=== PATIENT | male | born 1950 | race Two or more races ===

== ENCOUNTER 2022-10-06 19:42 | Inpatient (IN) | payer MEDICARE, OTHER ==
[~2022-10-06] VITALS: Ht 152.4 cm; Wt 82.1 kg
--- NOTE | 2022-10-06 20:09 | NUR ---
KAVITHA PERRY [facility] C/O R SHOULDER SWELLING AND PAIN , MASS NOTED. PT IS ALERT AND ORIENTED. RR EVEN AND NONLABORED. CONNECTED TO MONITOR
--- NOTE | 2022-10-06 20:37 | NUR ---
COVID SWAB COLLECTED
--- NOTE | 2022-10-06 20:38 | NUR ---
ULTRASOUND AT BEDSIDE
--- NOTE | 2022-10-06 20:51 | NUR ---
IV L HAND #22G S/L BLOOD COLLECTED AND SENT TO LAB
[2022-10-06 20:59] LABS: EOSINOPHILS % (AUTO) 0.3 % (0.0-6.0); HEMATOCRIT 29 % (39-51); HEMOGLOBIN 9.1 g/dL (13.5-17.5); LYMPHOCYTES # (AUTO) 0.8 K/uL (0.8-4.8); LYMPHOCYTES % (AUTO) 3.8 % (20.0-44.0); MEAN CORPUSCULAR HGB CONC 32 g/dl (31.0-36.0); MEAN CORPUSCULAR VOLUME 85 fL (80-96); MONOCYTES # (AUTO) 1.2 K/uL (0.1-1.30); NEUTROPHILS # (AUTO) 18.1 K/uL (1.8-8.9); NEUTROPHILS % (AUTO) 89.9 % (43.0-81.0); PLATELET COUNT (AUTO) 375 K/uL (150-450); RED BLOOD CELL COUNT(AUTO) 3.37 MIL/uL (4.5-6.0); WHITE BLOOD COUNT (AUTO) 20.1 K/uL (4.3-11.0)
[2022-10-06 21:17] LABS: CALCIUM, SERUM 7.6 mg/dL (8.5-10.1); CREATININE 0.9 mg/dL (0.6-1.3)
[2022-10-06 21:21] LABS: POTASSIUM 2.7 mmol/L (3.5-5.1)
--- NOTE | 2022-10-06 21:21 | NUR ---
CRITICAL LAB POTASSIUM 2.7
[2022-10-06] MEDS ORDERED: IV NS 0.9% 1,000 ML IV ONE (21:30)
[2022-10-06] MEDS ORDERED: IOHEXOL-350 100 ML VIAL IV ONE (21:43)
[2022-10-06] MEDS ORDERED: IV NS 0.9% 250 ML IV ONE (21:43)
[2022-10-06] MEDS ORDERED: CT SWABBABLE VALVE TRANS SET 1 EA INFUS.SET MC ONE (21:43)
[2022-10-06 21:53] LABS: BAND % (MANUAL) 10 % (0.0-5.0); LYMPHOCYTES % (MANUAL) 5 % (16-48); MONOCYTES % (MANUAL) 3 % (0-11.0); NEUTROPHILS % (MANUAL) 82 (42-76)
[2022-10-06] MEDS: POTASSIUM CL. PREMIX PERIPHER. 50 ML IV SCH (23:30)
[2022-10-06] MEDS ORDERED: MAGNESIUM HYDROXIDE 30 ML UDC PO PRN (23:30)
[2022-10-06] MEDS ORDERED: CEFEPIME 1 GM VIAL ONE (23:30)
[2022-10-06] MEDS ORDERED: CEFEPIME 1 GM in IV D5W 50 ML IV ONE (23:30)
[2022-10-06] MEDS ORDERED: MAG HYDROX/AL HYDROX/SIMETH 30 ML UDC PO PRN (23:30)
[2022-10-06] MEDS ORDERED: VANCOMYCIN 1 GM in IV D5W 250 ML IV ONE (23:30)
[2022-10-06] MEDS ORDERED: ONDANSETRON HCL/PF 4 MG/2 ML VIAL IVP PRN (23:30)
[2022-10-06] MEDS ORDERED: IV NS 0.9% 1,000 ML BAG IV ONE (23:30)
[2022-10-06] MEDS ORDERED: ENOXAPARIN SODIUM 40 MG/0.4 ML DISP.SYRIN SQ SCH (23:30)
[2022-10-06] MEDS ORDERED: VANCOMYCIN 1.5 GM in IV D5W 500ml IV ONE (23:45)
[2022-10-07] VITALS (7 sets, daily range): BP systolic 88–138; BP diastolic 49–86
[2022-10-07] MEDS: POTASSIUM CL. PREMIX PERIPHER. 50 ML IV SCH ×5 (00:30→04:12)
[2022-10-07] MEDS ORDERED: POTASSIUM CL. PREMIX PERIPHER. 200 ML ONE (00:35)
--- NOTE | 2022-10-07 00:53 | NUR ---
PROCAL [id number]
--- NOTE | 2022-10-07 01:20 | NUR ---
REPORT GIVEN TO FRANKO HUTTON FOR HERRERA
--- NOTE | 2022-10-07 02:42 | NUR ---
PT TRANSFERED TO 3W , ACLS PROTOCOLS
[2022-10-07 03:11] LABS: BILIRUBIN,DIRECT 0.1 mg/dL (0.0-0.2); BILIRUBIN,TOTAL 0.4 mg/dL (0.2-1.0)
[2022-10-07] MEDS: ENOXAPARIN SODIUM 40 MG/0.4 ML DISP.SYRIN SQ SCH ×2 (04:17→21:14)
--- NOTE | 2022-10-07 04:28 | NUR ---
ADMINISTRATION ASSISTANT NOTES POTASSIUM 10MEQ/50ML X2 BAGS HELD,HAD ORDER FROM ER 10MEQ/50ML X4 BAGS ON GOING.
--- NOTE | 2022-10-07 04:34 | NUR ---
SHOP WELDER ADMISSION NOTES RECEIVED PATIENT VIA GURNEY, PATIENT IS A/O 3. PATIENT IS BREATHING EVENLY AND UNLABORED ON ROOM AIR. NO SIGNS OF DISTRESS NOTED. VITALS TEMP: 97 HR: 78 RR: 20 SPO2:96 PATIENT DENIES PAIN OR DISCOMFORT AT THIS TIME. SKIN ASSESSMENT PERFORMED, SKIN C/D/I. NOTED RIGHT LEG AMPUTATION, SACRAL AND SCROTUM WOUND NOTED, RIGHT SHOULDER BUMP, EDEMA, BOWEL SOUNDS ACTIVE. PATIENT HAVE IV ACCESS ON LEFT #22G. PATENT AND INTACT. INFORMED ATTENDING PHYSICIAN ABOUT ADMISSION WITH ORDERS MADE AND CARRIED OUT. PATIENT WAS ORIENTED TO ROOM AND HOW TO USE THE CALL LIGHT. BELONGINGS ACCOUNTED FOR. SAFETY MEASURES IN PLACE; BED IN LOW, LOCKED POSITION; SIDE RAILS UP X 2; CALL LIGHT WITHIN REACH. WILL CONTINUE TO MONITOR
--- NOTE | 2022-10-07 04:50 | NUR ---
SIMULATION DEVELOPER NOTES LACTIC ACID WENT UP FROM 2.0 TO 3.4,HOSPITALIST DWAYNE PATEL MADE AWARE,NO NEW ORDERS.
[2022-10-07] MEDS ORDERED: PIPERACILLIN /TAZOBACTAM 3.375 G VIAL IV ONE (05:21)
[2022-10-07] MEDS ORDERED: ZOSYN IVPB 3.375 G in IV D5W 50ml IV SCH ×3 (05:30)
[2022-10-07] MEDS ORDERED: VANCOMYCIN 1 GM VIAL ONE ×2 (05:37→05:39)
[2022-10-07] MEDS ORDERED: VANCOMYCIN 1.5 GM in IV D5W 500ml IV ONE (06:00)
[2022-10-07] MEDS: BLOOD SUGAR DIAGNOSTIC 1 EACH STRIP IN SCH ×4 (06:26→21:33)
[2022-10-07] MEDS ORDERED: DEXTROSE 50%-WATER 50 ML DISP.SYRIN IV PRN (06:30)
--- NOTE | 2022-10-07 06:38 | NUR ---
FACILITY MAINTENANCE MANAGER CLOSING NOTES PATIENT IS IN BED ASLEEP, ON MODERATE HIGH BACK REST POSITION. ATTACHED TO TELE MONITORING DEVICE. HOOKED TO OXYGEN VIA NASAL CANNULA AT 2 LPM TOLERATING WELL, BREATH EVENLY. WITH IV ACCESS AT LEFT HAND #22G WITH NS1L AT 75M/HR INFUSING WELL. NO COMPLAIN OF PAIN AND DISCOMFORT AT THIS TIME.ALL DUE MEDICATIONS GIVEN ALL NEEDS ATTENDED, MORNING CARE RENDERED. KEPT BED ON LOWER LOCKED POSITION, KEPT SIDE RAILS X 2 ALL THE TIME. KEPT CALL LIGHT WITHIN AT REACH. WILL ENDORSED TO AM SHIFT FOR HERRERA.
[2022-10-07 07:20] LABS: EOSINOPHILS % (AUTO) 0.5 % (0.0-6.0); HEMATOCRIT 25 % (39-51); HEMOGLOBIN 7.9 g/dL (13.5-17.5); LYMPHOCYTES # (AUTO) 0.4 K/uL (0.8-4.8); LYMPHOCYTES % (AUTO) 1.7 % (20.0-44.0); MEAN CORPUSCULAR HGB CONC 32 g/dl (31.0-36.0); MEAN CORPUSCULAR VOLUME 84 fL (80-96); MONOCYTES # (AUTO) 0.7 K/uL (0.1-1.30); MONOCYTES % (AUTO) 3.3 % (2.0-12.0); NEUTROPHILS # (AUTO) 21.5 K/uL (1.8-8.9); NEUTROPHILS % (AUTO) 94.5 % (43.0-81.0); PLATELET COUNT (AUTO) 339 K/uL (150-450); RED BLOOD CELL COUNT(AUTO) 2.93 MIL/uL (4.5-6.0); WHITE BLOOD COUNT (AUTO) 22.7 K/uL (4.3-11.0)
--- NOTE | 2022-10-07 07:25 | NUR ---
SENIOR AUDIT MANAGER OPENING NOTE RECEIVED PATIENT IS IN BED ASLEEP BUT EASILY WOKEN UP. PATIENT ON OXYGEN AT 2LPM VIA NASAL CANULA, WITH EQUAL AND UNLABORED BREATHING WITH NO SIGNS OF RESPIRATORY DISTRESS. WITH IV ACCESS ON THE LEFT HAND G 22, WITH ONGOING IVF OF NS RUNNING AT 75ML/HR, INFUSING WELL. NOTED SWOLLEN RIGHT SHOULDER AND MULTIPLE WOUNDS ON THE LEFT LOWER EXTREMITIES, AND GROIN REDNESS/ EXCORIATION. NO COMPLAIN OF PAIN AT THIS TIME. ON NORMAL BODY ALIGNMENT. SAFETY MEASURES ENSURED WITH KEPT BED ON LOWER LOCKED POSITION, KEPT SIDE RAILS X 2 ALL THE TIME. KEPT CALL LIGHT WITHIN AT REACH. WILL CONTINUE WITH PLAN OF CARE.
[2022-10-07 07:35] LABS: CALCIUM, SERUM 7.1 mg/dL (8.5-10.1); CARBON DIOXIDE 24 mmol/L (21-32); CHLORIDE 98 mmol/L (98-107); CREATININE 1.1 mg/dL (0.6-1.3); GLUCOSE 171 mg/dL (74-106); PHOSPHORUS 3.8 mg/dL (2.5-4.9); SODIUM SERUM 131 mmol/L (136-145); UREA NITROGEN, BLOOD 56 mg/dL (7-18)
[2022-10-07 07:41] LABS: HDL CHOLESTEROL 25 mg/dL (40-60); LDL 13 mg/dL (0-99); TRIGLYCERIDES 44 mg/dL (30-150)
--- NOTE | 2022-10-07 07:45 | NUR ---
NEWSPAPER DELIVERY DRIVER NOTE PER OUTGOING NURSE, PATIENT HAD BEEN GIVEN VANCO AND ZOSYN AND A TOTAL OR 4 BAGS OF POTASSIUM ORDERED FOR POTASSIUM COLLECTION.
[2022-10-07 07:50] LABS: CHOLESTEROL 45 mg/dL (<200)
[2022-10-07 07:55] LABS: POTASSIUM 2.8 mmol/L (3.5-5.1)
[2022-10-07 07:56] LABS: MAGNESIUM 0.8 mg/dL (1.8-2.4)
--- NOTE | 2022-10-07 08:25 | NUR ---
SURVEY RESEARCH CENTER DIRECTOR NOTE DR. OLIVAREZ AT BEDSIDE. MD NOTIFIED OF CRITICAL LAB RESULTS, POTASSIUM AND MAGNESIUM. MD WILL PLACE ORDER DIRECTLY IN THE SYSTEM.
--- NOTE | 2022-10-07 09:18 | NUR ---
CYBERATHLETE NOTE SEEN BY DR. WILCOX
--- NOTE | 2022-10-07 09:51 | NUR ---
WOUND CARE CONSULT: PT PRESENTS WITH MULTIPLE SKIN ISSUES AND WOUNDS INCLUDING RAISED AREAS TO FOREHEAD AND RT SHOULDER, WEEPING EDEMA TO RT UPPER EXTREMITY, DISCOLORATION/DRY ABRASION TO RT BELOW KNEE AMPUTATION STUMP, SACRAL DEEP TISSUE INJURY IN EVOLUTION EXTENDING TO BILATERAL BUTTOCKS, SEVERE RASH WITH OPEN SKIN TO PENIS/PERINEUM/SCROTUM AND DRY NECROTIC WOUNDS TO LEFT LOWER LEG, FOOT AND HEEL, ALL PRESENT ON ADMISSION. DR WILCOX EXAMINED PT FOR RT SHOULDER RAISED AREA WITH EDEMA. DR LE CALLED FOR SACRAL/PERINEAL WOUNDS. DR DOWLING CALLED FOR DPM CONSULT. RECOMMENDATION MADE FOR SKIN PROTECTION. DISCUSSED WITH NURSING STAFF. PT IS ON [facility] ISOFLEX LOW AIRLOSS BED. IN AGREEMENT WITH PLAN OF CARE.
[2022-10-07] MEDS ORDERED: AMIODARONE 150 MG in IV D5W 100 ML IV ONE (10:00)
[2022-10-07] MEDS ORDERED: Z GUARD REMEDY 4 OZ OINT TP PRN (10:00)
[2022-10-07] MEDS: ZOSYN IVPB 3.375 G in IV D5W 50ml IV SCH ×3 (11:57→23:33)
[2022-10-07] MEDS: Z GUARD REMEDY 4 OZ OINT TP SCH (11:58)
[2022-10-07 13:00] LABS: BAND % (MANUAL) 12 % (0.0-5.0); LYMPHOCYTES % (MANUAL) 3 % (16-48); MONOCYTES % (MANUAL) 5 % (0-11.0); NEUTROPHILS % (MANUAL) 80 (42-76)
--- NOTE | 2022-10-07 13:45 | NUR ---
PHARMACOMETRICIAN NOTE PATIENT IS ALERT AND ORIENTED X 2-3 COHERENT BUT VERY FORGETFUL AND SOMETIMES NOTED SOME INCONSISTENCIES WITH HISTORY. SPOKE WITH DAUGHTER REGARDING CT WITH CONTRAST AND SECURED CONSENT FOR PROCEDURE. VERBAL CONSENT WITNESSED BY ANOTHER NURSE AND ATTACHED TO CHART. PATIENT ALSO AGREED WITH PROCEDURE.
[2022-10-07] MEDS ORDERED: POTASSIUM CHLORIDE 20 MEQ TAB.PRT.SR PO ONE (14:30)
[2022-10-07] MEDS: Magnesium 1GM/D5W 100ML PREMIX PIGGYBACK IV SCH ×4 (15:37→18:50)
--- NOTE | 2022-10-07 15:45 | NUR ---
FIRST LEVELER NOTE SEEN BY DR. DONALD
[2022-10-07] MEDS ORDERED: IOHEXOL-300 100 ML VIAL IV ONE (16:43)
[2022-10-07] MEDS ORDERED: IV NS 0.9% 250 ML IV ONE (16:44)
[2022-10-07] MEDS ORDERED: CT SWABBABLE VALVE TRANS SET 1 EA INFUS.SET MC ONE (16:44)
[2022-10-07] MEDS ORDERED: AMIN887L PO (17:36)
[2022-10-07] MEDS ORDERED: MELA3TAB70 PO (17:36)
[2022-10-07] MEDS ORDERED: PANT40TA49 PO (17:36)
[2022-10-07] MEDS ORDERED: LISI-768 PO (17:36)
[2022-10-07] MEDS ORDERED: OXYC5CAP18 PO (17:36)
[2022-10-07] MEDS ORDERED: ASCO500C17 PO (17:36)
[2022-10-07] MEDS ORDERED: POLY17PO4 PO (17:36)
[2022-10-07] MEDS ORDERED: MULT-439 PO (17:36)
[2022-10-07] MEDS ORDERED: TAMS-12 PO (17:36)
[2022-10-07] MEDS ORDERED: ZINC220C6 PO (17:36)
[2022-10-07] MEDS ORDERED: ERGO500040 PO (17:36)
[2022-10-07] MEDS ORDERED: METF-440 PO (17:36)
[2022-10-07] MEDS ORDERED: APIX2.5T PO (17:36)
[2022-10-07] MEDS ORDERED: ACET325T53 PO ×2 (17:36)
[2022-10-07] MEDS ORDERED: ATOR80TA PO (17:36)
[2022-10-07] MEDS ORDERED: DONE5TAB34 PO (17:36)
[2022-10-07] MEDS: CLOTRIMAZOLE 1% 15 GM TUBE TP SCH (18:10)
[2022-10-07] MEDS: VANCOMYCIN 1 GM in IV D5W 250 ML IV SCH (18:11)
--- NOTE | 2022-10-07 18:30 | NUR ---
HEALTH EDUCATION TEACHER NOTE SEEN BY DR. SOUTH. DAUGHTER'S INFORMATION GIVEN TO DR. SOUTH. WILL CALL DAUGHTER.
--- NOTE | 2022-10-07 19:00 | NUR ---
FRUIT AND VEGETABLE PARER CLOSING NOTE PATIENT IS IN BED ASLEEP BUT EASILY WOKEN UP. PATIENT ON OXYGEN AT 2LPM VIA NASAL CANULA, WITH EQUAL AND UNLABORED BREATHING WITH NO SIGNS OF RESPIRATORY DISTRESS. WITH IV ACCESS ON THE LEFT HAND G 22, WITH ONGOING IVF OF NS RUNNING AT 75ML/HR, INFUSING WELL. NOTED SWOLLEN RIGHT SHOULDER AND MULTIPLE WOUNDS ON THE LEFT LOWER EXTREMITIES, AND GROIN REDNESS/ EXCORIATION. NO COMPLAIN OF PAIN AT THIS TIME. ON NORMAL BODY ALIGNMENT. SAFETY MEASURES ENSURED WITH KEPT BED ON LOWER LOCKED POSITION, KEPT SIDE RAILS X 2 ALL THE TIME. KEPT CALL LIGHT WITHIN AT REACH. WILL ENDORSE TO NEXT SHIFT FOR CONTINUITY OF CARE.
--- NOTE | 2022-10-07 19:35 | NUR ---
GLASS CLEANING MACHINE TENDER OPENING NOTES; RECEIVED PATIENT IN BED ASLEEP BUT EASY TO AROUSED,ON 2L O2 VIA NC KARLY WELL SATTING 98%,NO SOB/DISTRESS NOTED,NO COMPLAIN OF PAIN/DISCOMFORT AT THIS TIME,WITH IV ACCESS AT LEFT HAND #22G WITH NS 1L AT 75M/HR INFUSING WELL. SAFETY MEASURE IN PLACE, KEPT CALL LIGHT WITHIN AT REACH. WILL CONTINUE TO MONITOR.
[2022-10-07] MEDS: INSULIN REGULAR, HUMAN 100 UNIT/ML 3 ML VIAL SQ PRN (21:21)
[2022-10-07] MEDS: IV NS 0.9% 1,000 ML IV PRN (23:31)
[2022-10-08] VITALS (13 sets, daily range): BP systolic 68–114; BP diastolic 35–57
--- NOTE | 2022-10-08 02:40 | NUR ---
RN OTES; PATIENT BP WAS LOW 68/38,TEXTED CIVIL MANAGER,Doni MUÑOZ,WITH NEW ORDER 1L NS BOLUS ONCE.
[2022-10-08] MEDS: IV NS 0.9% 1,000 ML IV PRN ×2 (03:40→17:26)
[2022-10-08] MEDS ORDERED: IV NS 0.9% 1,000 ML IV ONE ×2 (04:00)
[2022-10-08] MEDS: VANCOMYCIN 1 GM in IV D5W 250 ML IV SCH ×2 (05:06→18:00)
[2022-10-08] MEDS: ZOSYN IVPB 3.375 G in IV D5W 50ml IV SCH ×4 (05:06→23:02)
--- NOTE | 2022-10-08 06:16 | NUR ---
TUGBOAT OPERATOR CLOSING NOTES; PATIENT IN BED ASLEEP BUT EASY TO AROUSED,ON 2L O2 VIA NC KARLY WELL SATTING 97.4%,NO SOB/DISTRESS NOTED,NO COMPLAIN OF PAIN/DISCOMFORT DURING SHIFT,DUE MEDS GIVEN ORDER,ALL NEEDS ATTENDED,WITH IV ACCESS AT LEFT HAND #22G WITH NS 75M/HR INFUSING WELL.REPOSITION Q2HR KARLY,KEPT CLEANED AND DRY AT ALL TIME, SAFETY MEASURE IN PLACE,CALL LIGHT WITHIN REACH. WILL ENDORSED TO NEXT SHIFT.
[2022-10-08] MEDS: BLOOD SUGAR DIAGNOSTIC 1 EACH STRIP IN SCH ×4 (06:35→21:50)
[2022-10-08 06:50] LABS: CALCIUM, SERUM 6.8 mg/dL (8.5-10.1); CREATININE 1.1 mg/dL (0.6-1.3); POTASSIUM 3.1 mmol/L (3.5-5.1)
--- NOTE | 2022-10-08 07:24 | NUR ---
ATM TECHNICIAN OPENING NOTE PATIENT IS IN BED ASLEEP BUT EASILY WOKEN UP. PATIENT IS ALERT AND ORIENTED X 2-3, FORGETFUL AND WITH SOME INCONSISTENCIES WITH HIS STORIES LIKE WHEN HE FELL AND WHAT HAPPENED. PATIENT ON OXYGEN AT 2LPM VIA NASAL CANULA, WITH EQUAL AND UNLABORED BREATHING WITH NO SIGNS OF RESPIRATORY DISTRESS. WITH IV ACCESS ON THE LEFT HAND G 22, WITH ONGOING IVF OF NS RUNNING AT 75ML/HR, INFUSING WELL. NOTED SWOLLEN RIGHT SHOULDER, EDEMATOUS RIGHT ARM, FOREARM, HAND AND MULTIPLE WOUNDS ON THE LEFT LOWER EXTREMITIES, AND GROIN REDNESS/ EXCORIATION. NO COMPLAIN OF PAIN AT THIS TIME. ON NORMAL BODY ALIGNMENT. SAFETY MEASURES ENSURED WITH KEPT BED ON LOWER LOCKED POSITION, KEPT SIDE RAILS X 2 ALL THE TIME. KEPT CALL LIGHT WITHIN AT REACH. WILL CONTINUE WITH PLAN OF CARE.
[2022-10-08] MEDS: CLOTRIMAZOLE 1% 15 GM TUBE TP SCH ×2 (08:22→17:26)
[2022-10-08] MEDS: Z GUARD REMEDY 4 OZ OINT TP SCH (08:22)
[2022-10-08 08:24] LABS: EOSINOPHILS % (AUTO) 0.2 % (0.0-6.0); LYMPHOCYTES # (AUTO) 0.7 K/uL (0.8-4.8); LYMPHOCYTES % (AUTO) 4.2 % (20.0-44.0); MEAN CORPUSCULAR HGB CONC 30 g/dl (31.0-36.0); MEAN CORPUSCULAR VOLUME 87 fL (80-96); MONOCYTES # (AUTO) 1.3 K/uL (0.1-1.30); MONOCYTES % (AUTO) 8.4 % (2.0-12.0); NEUTROPHILS # (AUTO) 13.9 K/uL (1.8-8.9); NEUTROPHILS % (AUTO) 87.2 % (43.0-81.0); PLATELET COUNT (AUTO) 251 K/uL (150-450); RED BLOOD CELL COUNT(AUTO) 2.29 MIL/uL (4.5-6.0)
[2022-10-08 08:32] LABS: HEMATOCRIT 20 % (39-51)
[2022-10-08] MEDS ORDERED: MAGNESIUM OXIDE 400 MG TABLET PO ONE (09:30)
[2022-10-08] MEDS ORDERED: POTASSIUM CHLORIDE 20 MEQ TAB.PRT.SR PO SCH (10:00)
--- NOTE | 2022-10-08 11:19 | NUR ---
MIXING MACHINE TENDER CORK ROD NOTE MIDLINE ORDERED, WITH RIGHT ARM SWOLLEN. MIDLINE REINSERTED ON LEFT ARM, PATENT AND INTACT. PROCEDURE TOLERATED WELL BY PATIENT. IN STABLE CONDITION.
[2022-10-08 12:38] LABS: BAND % (MANUAL) 3 % (0.0-5.0); LYMPHOCYTES % (MANUAL) 2 % (16-48); MONOCYTES % (MANUAL) 6 % (0-11.0); NEUTROPHILS % (MANUAL) 89 (42-76)
--- NOTE | 2022-10-08 19:00 | NUR ---
ACADEMIC SUCCESS COORDINATOR CLOSING NOTE PATIENT IS IN BED ASLEEP BUT EASILY WOKEN UP. PATIENT IS ALERT AND ORIENTED X 2-3, FORGETFUL AND WITH SOME INCONSISTENCIES WITH HIS STORIES LIKE WHEN HE FELL AND WHAT HAPPENED. PATIENT ON OXYGEN AT 2LPM VIA NASAL CANULA, WITH EQUAL AND UNLABORED BREATHING WITH NO SIGNS OF RESPIRATORY DISTRESS. WITH IV ACCESS ON THE LEFT HAND G 22 ON SALINE LOCK, WITH THADDEUS MIDLINE WITH ONGOING IVF OF NS RUNNING AT 75ML/HR, INFUSING WELL. NOTED SWOLLEN RIGHT SHOULDER, EDEMATOUS RIGHT ARM, FOREARM, HAND AND MULTIPLE WOUNDS ON THE LEFT LOWER EXTREMITIES, AND GROIN REDNESS/ EXCORIATION. NO COMPLAIN OF PAIN AT THIS TIME. ON NORMAL BODY ALIGNMENT. SAFETY MEASURES ENSURED WITH KEPT BED ON LOWER LOCKED POSITION, KEPT SIDE RAILS X 2 ALL THE TIME. KEPT CALL LIGHT WITHIN AT REACH. SPOKE WITH DAUGHTER AND SECURED ULTRASOUND GUIDED BIOPSY, ASPIRATION ORDERED BY MD, WITHNESSED BY ANOTHER NURSE. RELAYED REQUEST FOR DR. DIAL TO CALL HER BACK. IN STABLE CONDITION. WILL ENDORSE TO NEXT SHIFT FOR CONTINUITY OF CARE.
--- NOTE | 2022-10-08 19:05 | NUR ---
PROFESSIONAL DEVELOPMENT DIRECTOR OPENING NOTE PATIENT IS LYING IN BED WATCHING TV. HE IS ALERT AND ORIENTED.AO X 2 WITH SOME EPISODES OF CONFUSION. HE IS ON RA, TOLERATED WEILL. NO S/S OF DISTRESS OR SOB. PATIENT HAS TWO IV ACCESS: ONE IS AT HIS L UA, ML, #18G, RUNNING NS @75 ML/HR; ANOTHER ONE IS AT HIS L HAND, #22G, SL. 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 SAFETY MEASURES ARE IN PLACED: BED IN LOWEST AND LOCKED POSITION; SIDE RAILS UP X 3; BED ALARM IS SET; CALL LIGHT AND TABLE ARE WITHIN EASY REACH. WILL CONTINUE MONITORING THE PATIENT AND PROVIDE THE CARE PATIENT NEEDS.
[2022-10-08 22:58] LABS: EOSINOPHILS % (AUTO) 0.4 % (0.0-6.0); HEMATOCRIT 23 % (39-51); HEMOGLOBIN 7.4 g/dL (13.5-17.5); LYMPHOCYTES # (AUTO) 0.8 K/uL (0.8-4.8); LYMPHOCYTES % (AUTO) 5.1 % (20.0-44.0); MEAN CORPUSCULAR HGB CONC 32 g/dl (31.0-36.0); MEAN CORPUSCULAR VOLUME 84 fL (80-96); MONOCYTES # (AUTO) 0.7 K/uL (0.1-1.30); MONOCYTES % (AUTO) 4.9 % (2.0-12.0); NEUTROPHILS # (AUTO) 13.4 K/uL (1.8-8.9); NEUTROPHILS % (AUTO) 89.6 % (43.0-81.0); PLATELET COUNT (AUTO) 237 K/uL (150-450); RED BLOOD CELL COUNT(AUTO) 2.76 MIL/uL (4.5-6.0)
[2022-10-09] VITALS: BP 107/49
[2022-10-09 00:17] LABS: OCCULT BLOOD STOOL NEGATIVE (NEGATIVE)
[2022-10-09 04:00] VITALS: BP 105/54
[2022-10-09] MEDS: ZOSYN IVPB 3.375 G in IV D5W 50ml IV SCH ×3 (05:02→17:20)
[2022-10-09] MEDS: ACETAMINOPHEN 325 MG TABLET PO PRN (05:45)
[2022-10-09 05:59] LABS: CALCIUM, SERUM 7.3 mg/dL (8.5-10.1); CARBON DIOXIDE 23 mmol/L (21-32); CHLORIDE 101 mmol/L (98-107); CREATININE 0.9 mg/dL (0.6-1.3); GLUCOSE 109 mg/dL (74-106); POTASSIUM 3.2 mmol/L (3.5-5.1); SODIUM SERUM 133 mmol/L (136-145); UREA NITROGEN, BLOOD 60 mg/dL (7-18)
[2022-10-09] MEDS: BLOOD SUGAR DIAGNOSTIC 1 EACH STRIP IN SCH ×4 (06:56→21:44)
--- NOTE | 2022-10-09 07:03 | NUR ---
TEXTILES AND CLOTHING TEACHER CLOSING NOTE PATIENT IS SLEEPING IN BED, EASILY BEING AROUSED. HE IS ALERT AND ORIENTED. AO X 2 WITH SOME EPISODES OF CONFUSION. HE IS ON RA, TOLERATED WEILL. NO S/S OF DISTRESS OR SOB. PATIENT HAS TWO IV ACCESS: ONE IS AT HIS L UA, ML, #18G, RUNNING NS @75 ML/HR; ANOTHER ONE IS AT HIS L HAND, #22G, SL. 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 SAFETY MEASURES ARE IN PLACED: BED IN LOWEST AND LOCKED POSITION; SIDE RAILS UP X 3; BED ALARM IS SET; CALL LIGHT AND TABLE ARE WITHIN EASY REACH. WILL ENDORSE NEXT SHIFT NURSE FOR CONTINUING PATIENT CARE.
--- NOTE | 2022-10-09 07:30 | NUR ---
ALARM SIGNALER OPENING NOTES RECEIVED PATIENT ON BED RESTING AND A/O X2-3. ON ROOM AIR TOLERATING WELL. NO SOB NOTED. NOT IN DISTRESS. WITH COMPLAINTS OF PAIN OR DISCOMFORT AT THE SCROTAL AREA AT THE SCALE OF 5/10. COMFORT MEASURES PROVIDED. ON TELE MONITOR CURRENTLY READING A-FIB AT 76BPM. WITH IV ACCESS AT THE LEFT UPPER ARM MIDLINE G18 WITH IVF NS AT 75ML/HR INFUSING WELL. SAFETY MEASURES IN PLACED. CALL LIGHT WITHIN REACH. BED ON LOWEST LOCKED POSITION, SIDE RAILS UP X2. WILL CONTINUE TO MONITOR.
[2022-10-09 08:33] LABS: EOSINOPHILS % (AUTO) 0.5 % (0.0-6.0); HEMATOCRIT 25 % (39-51); HEMOGLOBIN 7.9 g/dL (13.5-17.5); LYMPHOCYTES # (AUTO) 0.8 K/uL (0.8-4.8); LYMPHOCYTES % (AUTO) 4.9 % (20.0-44.0); MEAN CORPUSCULAR HGB CONC 32 g/dl (31.0-36.0); MEAN CORPUSCULAR VOLUME 86 fL (80-96); NEUTROPHILS # (AUTO) 14.7 K/uL (1.8-8.9); NEUTROPHILS % (AUTO) 88.6 % (43.0-81.0); PLATELET COUNT (AUTO) 257 K/uL (150-450); RED BLOOD CELL COUNT(AUTO) 2.89 MIL/uL (4.5-6.0); WHITE BLOOD COUNT (AUTO) 16.6 K/uL (4.3-11.0)
[2022-10-09] MEDS: PANTOPRAZOLE 40 MG TABLET.DR PO SCH (10:02)
[2022-10-09] MEDS: METFORMIN 500 MG TABLET PO SCH ×2 (10:02→16:20)
[2022-10-09] MEDS: DONEPEZIL 5 MG TABLET PO SCH (10:02)
[2022-10-09] MEDS: CLOTRIMAZOLE 1% 15 GM TUBE TP SCH ×2 (10:02→16:09)
[2022-10-09] MEDS: Z GUARD REMEDY 4 OZ OINT TP SCH (10:03)
[2022-10-09] MEDS: INSULIN REGULAR, HUMAN 100 UNIT/ML 3 ML VIAL SQ PRN ×3 (12:14→21:44)
[2022-10-09] MEDS: POTASSIUM CHLORIDE 20 MEQ TAB.PRT.SR PO SCH ×2 (12:15→13:22)
[2022-10-09 12:48] LABS: BAND % (MANUAL) 7 % (0.0-5.0); LYMPHOCYTES % (MANUAL) 8 % (16-48); NEUTROPHILS % (MANUAL) 83 (42-76); REACTIVE LYMPHOCYTES 2 % (0-0)
[2022-10-09] MEDS: IV NS 0.9% 1,000 ML IV PRN (12:55)
[2022-10-09] MEDS: GLUCERNA SHAKE 237 ML CAN PO SCH (16:34)
[2022-10-09] MEDS: VANCOMYCIN 1 GM in IV D5W 250 ML IV SCH (17:58)
--- NOTE | 2022-10-09 18:00 | NUR ---
RN NOTE ATTEMPTED TO INSERT VIRAMONTES CATHETER ON PATIENT TWICE DUE TO PRESENCE OF RESISTANCE. WILL ENDORSE TO NEXT SHIFT.
--- NOTE | 2022-10-09 18:21 | NUR ---
MS RN CLOSING NOTES PATIENT ON BED RESTING AND A/O X2-3. ON ROOM AIR TOLERATING WELL. NO SOB NOTED. NOT IN DISTRESS. WITH COMPLAINTS OF PAIN OR DISCOMFORT AT THE SCROTAL AREA AT THE SCALE OF 5/10. COMFORT MEASURES PROVIDED. WITH IV ACCESS AT THE LEFT UPPER ARM MIDLINE G18 WITH IVF NS AT 75ML/HR INFUSING WELL. DUE MEDS GIVEN. SAFETY MEASURES IN PLACED. CALL LIGHT WITHIN REACH. BED ON LOWEST LOCKED POSITION, SIDE RAILS UP X2. WILL ENDORSE TO NEXT SHIFT FOR HERRERA.
--- NOTE | 2022-10-09 19:15 | NUR ---
noc rn opening received patient in bed, patient is legally blind. noted dinner tray still untouched and asked and encouraged patient to eat and i'll assist him patient said "NO!" "I'm thirsty!" patient assisted with drinks. no s/s of apparent distress on room air. denies pain at this time. needs attended for now. THADDEUS midline running Zosyn @125mls/hr still at this time. call light within reach. safety in place. will continue with patient's plan of care.
[2022-10-09 20:00] VITALS: BP 119/55
--- NOTE | 2022-10-09 21:13 | NUR ---
noc rn note adamantly refused to eat and per patient, to quote "I AM NOT HUNGRY! can't you understand Romansh?" been religiously giving patient fluids and encouraged to say when he is hungry. will continue to monitor.
[2022-10-09] MEDS: TAMSULOSIN 0.4 MG CAP.SR.24H PO SCH (21:38)
[2022-10-10] MEDS: ZOSYN IVPB 3.375 G in IV D5W 50ml IV SCH ×6 (00:26→23:32)
[2022-10-10] MEDS: BLOOD SUGAR DIAGNOSTIC 1 EACH STRIP IN SCH ×4 (06:44→22:13)
[2022-10-10] MEDS: INSULIN REGULAR, HUMAN 100 UNIT/ML 3 ML VIAL SQ PRN ×3 (06:44→22:14)
--- NOTE | 2022-10-10 07:22 | NUR ---
noc rn closing needs attended. no significant change. will endorse to BRENNEN Robles for continuity of patient care.
[2022-10-10 07:23] LABS: CALCIUM, SERUM 7.9 mg/dL (8.5-10.1); CREATININE 0.8 mg/dL (0.6-1.3); POTASSIUM 3.3 mmol/L (3.5-5.1)
--- NOTE | 2022-10-10 07:31 | NUR ---
MS RN OPENING NOTE RECEIVED PATIENT IN BED RESTING AND A/O X2-3. ON ROOM AIR TOLERATING WELL. NO SOB NOTED. NOT IN DISTRESS. WITH COMPLAINTS OF PAIN OR DISCOMFORT AT THE SCROTAL AREA AT THE SCALE OF 5/10. COMFORT MEASURES PROVIDED. IV ACCESS AT THE LEFT UPPER ARM MIDLINE GAUGE #18 WITH IVF NS AT 75ML/HR INFUSING WELL. SAFETY MEASURES IN PLACE. CALL LIGHT WITHIN REACH. BED ON LOWEST LOCKED POSITION, SIDE RAILS UP X2. BED ALARM ON . DRESSING TO LEFT FOOT/LEFT LOWER LEG IS INTACT, CLEAN, AND DRY. WILL CONTINUE TO MONITOR AND CARE FOR PATIENT PER MD PLAN OF CARE.
[2022-10-10 08:04] VITALS: BP 102/68
[2022-10-10] MEDS: GLUCERNA SHAKE 237 ML CAN PO SCH ×2 (08:06→17:05)
[2022-10-10 08:09] LABS: BASOPHILS % (AUTO) 0.1 % (0.0-2.0); EOSINOPHILS % (AUTO) 0.4 % (0.0-6.0); HEMATOCRIT 25 % (39-51); HEMOGLOBIN 8.1 g/dL (13.5-17.5); LYMPHOCYTES # (AUTO) 1.1 K/uL (0.8-4.8); MEAN CORPUSCULAR HGB CONC 33 g/dl (31.0-36.0); MEAN CORPUSCULAR VOLUME 84 fL (80-96); MONOCYTES # (AUTO) 0.8 K/uL (0.1-1.30); MONOCYTES % (AUTO) 7.3 % (2.0-12.0); NEUTROPHILS # (AUTO) 9.1 K/uL (1.8-8.9); NEUTROPHILS % (AUTO) 82.2 % (43.0-81.0); PLATELET COUNT (AUTO) 261 K/uL (150-450); RED BLOOD CELL COUNT(AUTO) 2.95 MIL/uL (4.5-6.0)
[2022-10-10] MEDS ORDERED: ERGOCALCIFEROL (VITAMIN D 2) 50,000 UNIT CAPSULE PO SCH (09:00)
[2022-10-10] MEDS: Z GUARD REMEDY 4 OZ OINT TP SCH (09:15)
[2022-10-10] MEDS: PANTOPRAZOLE 40 MG TABLET.DR PO SCH (09:15)
[2022-10-10] MEDS: METFORMIN 500 MG TABLET PO SCH ×2 (09:15→17:30)
[2022-10-10] MEDS: DONEPEZIL 5 MG TABLET PO SCH (09:15)
[2022-10-10] MEDS: CLOTRIMAZOLE 1% 15 GM TUBE TP SCH ×2 (09:15→17:05)
[2022-10-10] MEDS: IV NS 0.9% 1,000 ML IV PRN (10:34)
[2022-10-10] MEDS: MORPHINE SULFATE INJ 2 MG/ML DISP.SYRIN IV PRN ×3 (10:37→20:51)
[2022-10-10] MEDS ORDERED: POTASSIUM CHLORIDE 20 MEQ TAB.PRT.SR PO SCH (12:00)
[2022-10-10 16:00] VITALS: BP 124/69
[2022-10-10] MEDS: VANCOMYCIN 1 GM in IV D5W 250 ML IV SCH (17:04)
--- NOTE | 2022-10-10 18:52 | NUR ---
MS RN CLOSING NOTE PATIENT IN BED RESTING AND A/O X2-3. ON ROOM AIR TOLERATING WELL. NO SOB NOTED. NOT IN DISTRESS. WITH COMPLAINTS OF PAIN OR DISCOMFORT AT THE SCROTAL AREA AT THE SCALE OF 3/10. COMFORT MEASURES PROVIDED. WITH IV ACCESS AT THE LEFT UPPER ARM MIDLINE G18 WITH IVF NS AT 75ML/HR INFUSING WELL. DUE MEDS GIVEN. SAFETY MEASURES IN PLACE. CALL LIGHT WITHIN REACH. BED ON LOWEST LOCKED POSITION, SIDE RAILS UP X2. WILL ENDORSE TO TRUCK DRIVER BRENNEN GURROLA FOR HERRERA.
--- NOTE | 2022-10-10 19:20 | NUR ---
noc rn opening received patient in bed, patient is legally blind. no s/s of apparent distress on room air. denies pain at this time. THADDEUS midline running IV @75mls/hr at this time. call light within reach. safety in place. will continue with patient's plan of care.
[2022-10-10 20:00] VITALS: BP 105/68
[2022-10-10] MEDS: TAMSULOSIN 0.4 MG CAP.SR.24H PO SCH (22:09)
[2022-10-11] MEDS: MORPHINE SULFATE INJ 2 MG/ML DISP.SYRIN IV PRN ×3 (04:08→18:39)
[2022-10-11] MEDS: BLOOD SUGAR DIAGNOSTIC 1 EACH STRIP IN SCH ×4 (06:34→21:31)
[2022-10-11] MEDS: INSULIN REGULAR, HUMAN 100 UNIT/ML 3 ML VIAL SQ PRN ×3 (06:34→21:31)
[2022-10-11] MEDS: IV NS 0.9% 1,000 ML IV PRN (06:55)
[2022-10-11 07:18] LABS: CREATININE 0.6 mg/dL (0.6-1.3); POTASSIUM 3.3 mmol/L (3.5-5.1)
--- NOTE | 2022-10-11 07:31 | NUR ---
noc rn closing note Endorsed to BRENNEN Robles for continuity of patient care.
--- NOTE | 2022-10-11 07:44 | NUR ---
MS RN OPENING NOTE RECEIVED PATIENT IN BED SLEEPING, EASILY AROUSABLE, AND A/O X 2-3. PT IS ON ROOM AIR TOLERATING WELL. NO SOB NOTED. NOT IN DISTRESS. NO COMPLAINTS OF PAIN NOR SIGNS OF PAIN AT THE MOMENT WHILE ;LYING STILL. IV ACCESS AT THE LEFT UPPER ARM MIDLINE GAUGE #18 WITH IVF NS AT 75ML/HR INFUSING WELL. SAFETY MEASURES IN PLACE. CALL LIGHT WITHIN REACH. BED ON LOWEST LOCKED POSITION, SIDE RAILS UP X 3. BED ALARM ON . DRESSING TO LEFT FOOT/LEFT LOWER LEG IS INTACT, CLEAN, AND DRY. WILL CONTINUE TO MONITOR AND CARE FOR PATIENT PER MD PLAN OF CARE.
[2022-10-11 08:00] VITALS: BP 106/65
[2022-10-11 08:23] LABS: EOSINOPHILS % (AUTO) 0.6 % (0.0-6.0); HEMATOCRIT 24 % (39-51); NEUTROPHILS # (AUTO) 8.4 K/uL (1.8-8.9)
[2022-10-11 08:35] LABS: HEMOGLOBIN 7.7 g/dL (13.5-17.5); LYMPHOCYTES # (AUTO) 0.7 K/uL (0.8-4.8); LYMPHOCYTES % (AUTO) 7.5 % (20.0-44.0); MEAN CORPUSCULAR HGB CONC 32 g/dl (31.0-36.0); MEAN CORPUSCULAR VOLUME 84 fL (80-96); MONOCYTES # (AUTO) 0.7 K/uL (0.1-1.30); MONOCYTES % (AUTO) 7.1 % (2.0-12.0); NEUTROPHILS % (AUTO) 84.8 % (43.0-81.0); PLATELET COUNT (AUTO) 200 K/uL (150-450); RED BLOOD CELL COUNT(AUTO) 2.81 MIL/uL (4.5-6.0); WHITE BLOOD COUNT (AUTO) 9.9 K/uL (4.3-11.0)
[2022-10-11] MEDS: GLUCERNA SHAKE 237 ML CAN PO SCH ×2 (08:38→18:15)
[2022-10-11] MEDS: PANTOPRAZOLE 40 MG TABLET.DR PO SCH (08:56)
[2022-10-11] MEDS: METFORMIN 500 MG TABLET PO SCH ×2 (08:56→18:15)
[2022-10-11] MEDS: DONEPEZIL 5 MG TABLET PO SCH (08:56)
[2022-10-11] MEDS: CLOTRIMAZOLE 1% 15 GM TUBE TP SCH ×2 (08:57→18:15)
[2022-10-11] MEDS: Z GUARD REMEDY 4 OZ OINT TP SCH (08:57)
[2022-10-11] MEDS ORDERED: POTASSIUM CHLORIDE 20 MEQ POWDER PACKET PO ONE (09:00)
[2022-10-11] MEDS: ZOSYN IVPB 3.375 G in IV D5W 50ml IV SCH ×3 (12:17→23:55)
[2022-10-11 16:00] VITALS: BP 157/67
--- NOTE | 2022-10-11 18:55 | NUR ---
MS RN CLOSING NOTE PATIENT IN BED SLEEPING, EASILY AROUSED, AND A/O X 2-3. ON ROOM AIR TOLERATING WELL. NO SOB NOTED. NOT IN DISTRESS. NO COMPLAINTS OF PAIN OR DISCOMFORT AT THE SCROTAL AREA AT THE SCALE OF 3/10. COMFORT MEASURES PROVIDED. WITH IV ACCESS AT THE LEFT UPPER ARM MIDLINE G18 WITH IVF NS AT 75ML/HR INFUSING WELL. DUE MEDS GIVEN AND ALL WOUND CARE /SKIN CARE DONE. tURNED EVERY 2 HOURS TO PREVENT FURTHER SKIN BREAKDOWN. SAFETY MEASURES IN PLACE. CALL LIGHT WITHIN REACH. BED ON LOWEST LOCKED POSITION, SIDE RAILS UP X2. WILL ENDORSE TO SQL SSIS DEVELOPER RNSWATI, FOR HERRERA.
[2022-10-11] MEDS: VANCOMYCIN 1 GM in IV D5W 250 ML IV SCH (19:07)
--- NOTE | 2022-10-11 19:57 | NUR ---
RN OPENING NOTE PATIENT ASLEEP IN BED. A/OX4. NO S/S OF DISTRESS, BREATHING WITHOUT DIFFICULTY ON ROOM AIR. THADDEUS MIDLINE #18 INTACT AND PATENT W/ NS 75ML/HR. SAFETY MEASURES IN PLACE: BED LOCKED AND IN LOWEST POSITION, SEMI-COY'S, RAILS UP X2, CALL FORD WITHIN REACH. WILL CONTINUE TO MONITOR PATIENT.
[2022-10-11 20:00] VITALS: BP 137/81
[2022-10-11] MEDS: TAMSULOSIN 0.4 MG CAP.SR.24H PO SCH (21:30)
[2022-10-12] MEDS: IV NS 0.9% 1,000 ML IV PRN (01:40)
[2022-10-12] MEDS: ACETAMINOPHEN 325 MG TABLET PO PRN (05:31)
[2022-10-12] MEDS: ZOSYN IVPB 3.375 G in IV D5W 50ml IV SCH ×2 (05:31→12:03)
[2022-10-12 06:22] LABS: CREATININE 0.6 mg/dL (0.6-1.3); POTASSIUM 3.2 mmol/L (3.5-5.1)
[2022-10-12] MEDS: INSULIN REGULAR, HUMAN 100 UNIT/ML 3 ML VIAL SQ PRN ×2 (06:33→13:27)
[2022-10-12] MEDS: BLOOD SUGAR DIAGNOSTIC 1 EACH STRIP IN SCH ×2 (06:33→11:47)
--- NOTE | 2022-10-12 07:03 | NUR ---
RN CLOSING NOTE PATIENT ASLEEP IN BED. A/OX3. NO S/S OF DISTRESS, BREATHING WITHOUT DIFFICULTY ON ROOM AIR. THADDEUS MIDLINE #18 INTACT AND PATENT W/ NS 75ML/HR. SAFETY MEASURES IN PLACE: BED LOCKED AND AT LOWEST POSITION, LOW-FOWLERS, RAILS UP X2, CALL FORD WITHIN REACH. WILL ENDORSE TO NEXT SHIFT FOR HERRERA.
--- NOTE | 2022-10-12 07:30 | NUR ---
RN OPENING NOTE RECEIVED PATIENT IN BED AWAKE . A/OX4. NO S/S OF DISTRESS, NO C/O OF PAIN AND DISCOMFORT , BREATHING WITHOUT DIFFICULTY ON ROOM AIR. THADDEUS MIDLINE #18 INTACT AND PATENT W/ NS 75ML/HR. SAFETY MEASURES IN PLACE: BED LOCKED AND IN LOWEST POSITION, SEMI-COY'S, RAILS UP X2, CALL FORD WITHIN REACH. WILL CONTINUE TO MONITOR PATIENT.
[2022-10-12 08:00] VITALS: BP 111/57
[2022-10-12] MEDS: GLUCERNA SHAKE 237 ML CAN PO SCH (08:30)
[2022-10-12] MEDS: PANTOPRAZOLE 40 MG TABLET.DR PO SCH (09:43)
[2022-10-12] MEDS: DONEPEZIL 5 MG TABLET PO SCH (09:43)
[2022-10-12] MEDS: METFORMIN 500 MG TABLET PO SCH (09:44)
[2022-10-12] MEDS: Z GUARD REMEDY 4 OZ OINT TP SCH (09:55)
[2022-10-12] MEDS: CLOTRIMAZOLE 1% 15 GM TUBE TP SCH (09:55)
[2022-10-12] MEDS: POTASSIUM CHLORIDE 20 MEQ TAB.PRT.SR PO SCH ×2 (11:12→12:03)
--- NOTE | 2022-10-12 17:00 | NUR ---
COLD MILL SUPERVISOR NOTES PATIENT IS WITH ORDER FOR DISCHARGE TO ANOTHER ACUTE HOSPITAL FOR HIGHER LEVEL OF CARE , DISCHARGE PAPERS PREPARED AND TRANSFER CONSENT WAS ACQUIRED FROM DAUGHTER PAUL AND SHE AGREED REGARDING THE TRANSFER , REPORT WAS GIVEN TO MAXIM HUTTON TO [facility] PHONE [phone] AND ROOM WILL BE IN 5150, ADMINISTRATIVE RECEPTIONIST ROUND 1630 AND LEFT LIKE AROUND 1700 , PATIENT IN A STABLE CONDITION WITH , RIGHT SHOULDER DRAINAGE BAG DUE TO S/P CT PERC DRN ABSCESS WITH CATH , INTACT DRESSING ON THE RIGHT SHOULDER , IV ACCESS ON THE THADDEUS ML #18 G AND LEFT HAND # 20 G SL PATIENT LEFT ON ROOM AIR WITH NO SOB OR DISTRESS NOTED , NO C/O OF PAIN AND DISCOMFORT AND LEFT IN A STABLE CONDITION , REPORT GIVEN ALSO TO AMBULANCE CREW .
--- NOTE | 2022-10-12 17:30 | NUR ---
RN NOTES PATIENT IS S/P CT DRAINAGE ON THE RIGHT SHOULDER MASS ABSCESS AND WITH SYNOVIAL FLUID COLLECTED , WITH ORDER TO SEND TO THE LAB AND ORDER NOTED AND CARRIED OUT
== END 2022-10-12 17:00 | disposition short-term general hospital (02) | DRG 871 ==
LOC: ER 19:44 → MED 23:48 → TELE 10-07 02:40 → MED 10-09 12:07
PROVIDERS: ADMIT Nurse Practitioner Acute Care; ATTEND Internal Medicine
PROC: 30233N1 Transfusion of Nonautologous Red Blood Cells into Peripheral Vein, Percutaneous Approach (ICD-10-PCS; 2022-10-08)
PROC: 05HC33Z Insertion of Infusion Device into Left Basilic Vein, Percutaneous Approach (ICD-10-PCS; 2022-10-08)
PROC: 0X9 Anatomical Regions, Upper Extremities, Drainage (ICD-10-PCS; principal; 2022-10-12)
DX: A41.51 Sepsis due to Escherichia coli [E. coli] (principal); G93.41 Metabolic encephalopathy; R53.2 Functional quadriplegia; D68.59 Other primary thrombophilia; E11.52 Type 2 diabetes mellitus with diabetic peripheral angiopathy with gangrene; E87.1 Hypo-osmolality and hyponatremia; M00.9 Pyogenic arthritis, unspecified; L02.413 Cutaneous abscess of right upper limb; Z20.822 Contact with and (suspected) exposure to COVID-19; I10 Essential (primary) hypertension; E78.5 Hyperlipidemia, unspecified; K21.9 Gastro-esophageal reflux disease without esophagitis; Z89.511 Acquired absence of right leg below knee; F03.90 Unspecified dementia, unspecified severity, without behavioral disturbance, psychotic disturbance, mood disturbance, and anxiety; R26.9 Unspecified abnormalities of gait and mobility; E87.6 Hypokalemia; E88.09 Other disorders of plasma-protein metabolism, not elsewhere classified; Z89.612 Acquired absence of left leg above knee; Z74.01 Bed confinement status; L89.156 Pressure-induced deep tissue damage of sacral region; L89.326 Pressure-induced deep tissue damage of left buttock; L89.316 Pressure-induced deep tissue damage of right buttock; S31.30XA Unspecified open wound of scrotum and testes, initial encounter; X58.XXXA Exposure to other specified factors, initial encounter; Y92.9 Unspecified place or not applicable; D64.9 Anemia, unspecified
CPT/HCPCS: 36415; 71260-TC; 73201-TC; 75989-TC; 80048-TC; 80061-TC; 80202-TC; 82247-TC; 82248-TC; 82272-TC; 82962-TC; 83605-TC; 83735-TC; 84100-TC; 85025-TC; 85610-TC; 86850-TC; 87040-TC; 87081-TC; 89051-TC; 93971-TC; A4223; A6253; A6403; C9803; G0378; J0692; J1650; J1815; J2270; J2543; J3370; J3475; J3480; J7030; J7040; J7050; J7060; P9016; Q9967

== ENCOUNTER 2022-11-14 10:47 | Inpatient (IN) | payer MEDICARE, OTHER ==
[~2022-11-14] VITALS: Ht 170.2 cm; Wt 104.3 kg
[~2022-11-14 10:47] MED LIST: ACET325T53 PO; AMIN887L PO; APIX2.5T PO; ASCO500C17 PO; ATOR80TA PO; DONE5TAB34 PO; ERGO500040 PO; LISI-768 PO; MELA3TAB70 PO; METF-440 PO; MULT-439 PO; OXYC5CAP18 PO; PANT40TA49 PO; POLY17PO4 PO; TAMS-12 PO; ZINC220C6 PO
--- NOTE | 2022-11-14 11:05 | NUR ---
PATIENT CAME IN VIA AMBULANCE FROM A SNF FOR C/O HYPOTENSION AND POOR APPETITE , UPON NURSING ASSESSMENT THE PATIENT IS REPONSIVE TO VERBAL STIMULI , ON 4L/MIN OXYGEN AT 97% . MD AT BEDSIDE FOR EVALUATION. PATIENT IS STABLE. AWAITING FOR ORDERS.
[2022-11-14] MEDS: IV NS 0.9% 1,000 ML BAG IV ONE ×2 (11:15→11:30)
--- NOTE | 2022-11-14 11:20 | NUR ---
MOVE SHEET SUBMITTED.
--- NOTE | 2022-11-14 11:22 | NUR ---
COVID SWAB COLLECTED AND SENT TO LAB
[2022-11-14] MEDS ORDERED: SENN-18 PO (11:34)
[2022-11-14] MEDS ORDERED: ACET-868 PO (11:34)
[2022-11-14] MEDS ORDERED: ASCO500T10 PO (11:34)
[2022-11-14] MEDS ORDERED: CEFT2VIA64 IV (11:34)
--- NOTE | 2022-11-14 13:28 | NUR ---
MIDLINE INSERTED 20G AT LEFT UPPER ARM.
--- NOTE | 2022-11-14 13:28 | NUR ---
BLOOD SAMPLE OBTAINED SENT TO LAB
[2022-11-14 14:12] LABS: BASOPHILS % (AUTO) 0.2 % (0.0-2.0); EOSINOPHILS % (AUTO) 0.5 % (0.0-6.0); HEMATOCRIT 27 % (39-51); HEMOGLOBIN 8.7 g/dL (13.5-17.5); LYMPHOCYTES # (AUTO) 0.9 K/uL (0.8-4.8); LYMPHOCYTES % (AUTO) 8.6 % (20.0-44.0); MEAN CORPUSCULAR HGB CONC 32 g/dl (31.0-36.0); MEAN CORPUSCULAR VOLUME 85 fL (80-96); MONOCYTES # (AUTO) 0.5 K/uL (0.1-1.30); MONOCYTES % (AUTO) 4.7 % (2.0-12.0); NEUTROPHILS # (AUTO) 8.5 K/uL (1.8-8.9); PLATELET COUNT (AUTO) 211 K/uL (150-450); RED BLOOD CELL COUNT(AUTO) 3.19 MIL/uL (4.5-6.0); WHITE BLOOD COUNT (AUTO) 9.9 K/uL (4.3-11.0)
[2022-11-14 14:43] LABS: CHLORIDE 106 mmol/L (98-107); GLUCOSE 73 mg/dL (74-106); UREA NITROGEN, BLOOD 23 mg/dL (7-18)
[2022-11-14 14:51] LABS: ALANINE AMINOTRANSFERASE 13 U/L (12-78); ALKALINE PHOSPHATASE 160 U/L (46-116); ASPARTATE AMINOTRANSFERASE 23 U/L (15-37); BILIRUBIN,DIRECT 0.1 mg/dL (0.0-0.2); BILIRUBIN,TOTAL 0.2 mg/dL (0.2-1.0); TOTAL PROTEIN, SERUM 4.8 g/dL (6.4-8.2)
[2022-11-14] MEDS ORDERED: POTASSIUM CL. PREMIX PERIPHER. 50 ML ONE ×3 (14:53→16:54)
[2022-11-14] MEDS: POTASSIUM CL. PREMIX PERIPHER. 50 ML IV SCH ×8 (15:00→23:42)
[2022-11-14 15:05] LABS: ALBUMIN 0.8 g/dL (3.4-5.0)
[2022-11-14 15:07] LABS: SODIUM SERUM 142 mmol/L (136-145)
[2022-11-14 15:08] LABS: CARBON DIOXIDE 31 mmol/L (21-32); CREATININE 0.5 mg/dL (0.6-1.3); POTASSIUM 1.9 mmol/L (3.5-5.1)
[2022-11-14 15:37] LABS: PHOSPHORUS 1.6 mg/dL (2.5-4.9)
[2022-11-14] MEDS ORDERED: Magnesium 1 GM/2 ML VIAL IV ONE (16:00)
[2022-11-14] MEDS ORDERED: Thiamine 100 MG in IV D5W 50 ML IV SCH (16:00)
[2022-11-14] MEDS ORDERED: DEXTROSE 50%-WATER 50 ML DISP.SYRIN IVP ONE (16:00)
[2022-11-14] MEDS: Magnesium 1GM/D5W 100ML PREMIX 100 ML IV SCH ×2 (16:15→18:51)
[2022-11-14] MEDS ORDERED: ONDANSETRON HCL/PF 4 MG/2 ML VIAL IVP PRN (16:30)
[2022-11-14] MEDS ORDERED: MAG HYDROX/AL HYDROX/SIMETH 30 ML UDC PO PRN (16:30)
[2022-11-14] MEDS ORDERED: MORPHINE SULFATE INJ 2 MG/ML DISP.SYRIN IV PRN (16:30)
[2022-11-14] MEDS ORDERED: Z GUARD REMEDY 4 OZ OINT TP PRN (16:30)
[2022-11-14] MEDS ORDERED: HYDROCODONE/APAP 5/325MG TABLET PO PRN (16:30)
[2022-11-14] MEDS ORDERED: MAGNESIUM HYDROXIDE 30 ML UDC PO PRN (16:30)
[2022-11-14] MEDS ORDERED: NEUTRA PHOS 1 POWD.PACKET PO ONE (17:00)
--- NOTE | 2022-11-14 17:36 | NUR ---
TRANSFER REPORT GIVEN TO ALBA FLOOR NURSE.
[2022-11-14 18:00] VITALS: BP 102/60
--- NOTE | 2022-11-14 18:08 | NUR ---
3RD BAG OF POTASSIUM ABOUT 20ML AND MAGNESIUM 1G ON 100ML ABOUT 20ML LEFT ENDORSED TO PAUL HUTTON FOR CONTINUES INFUSION . BOTH IVPB ON SEPERATE IV PUMP REGULATED PROPERLY ORDERED.
--- NOTE | 2022-11-14 18:08 | NUR ---
RN NOTES: RECEIVED PT FROM ER POTASSIUM IV RUNNING VIA LEFT ARM MIDLINE, ENDORSED TO GIVE IV POTASSIUM, MAGNESIUM, DEXTROSE 50 % AND IV THIAMINE, PT ASLEEP BUT ANSWER SIMPLE QUESTION, NOTED RIGHT LEG BKA AND LEFT FOOT GANGRENE.NOTED PT WITH VIRAMONTES CATHETER,NO URINE OUTPUT NOTED, ALSO NOTED WITH 2 DRAINS AT RIGHT SHOULDER, VITAL SIGNS TAKEN 102/60 TEMP98.6, PULSE89 RESP 18 O2 SAT 100 PT ON 2 LITER OXYGEN VIA NASAL CANNULA, 2 NEONATAL INTENSIVE CARE NURSE CLEANED PATIENT ,WILL MONITOR
--- NOTE | 2022-11-14 18:44 | NUR ---
RN NOTES:BLOOD SUGAR 65 CALLED AND SPOKE TO DEION MONTILLA NP PT DID NOT RECEIVE IV DEXTROSE 50% IN THE ER THERE WAS NO IV LINE AND PT WAS RECEIVING IV POTASSIUM WITH ORDER TO GIVE D50% NOW, DEXTROSE GIVEN
[2022-11-14] MEDS: BLOOD SUGAR DIAGNOSTIC 1 EACH STRIP IN SCH ×2 (18:45→22:42)
--- NOTE | 2022-11-14 19:15 | NUR ---
RN NOTES: ENDORSED TO NIGHT BRENNEN GONZALEZ FOR ADMISSION AND HERRERA
--- NOTE | 2022-11-14 19:40 | NUR ---
CONTRACT DRIVER NOTE RECEIVED REPORT FROM BRENNEN MILLER. PT CAME IN FROM ER @ 1808, BROUGHT TO [facility] VIA ACLS PROTOCOL. DX IS FTT. PT IN BED, A/O X 0-1. RESPONDS TO QUESTIONS MINIMALLY. ON NC @ 2LPM, TOLERATING WELL WITH O2 SAT @ 98%. [employer] READS SR. NO S/SX OF ACUTE RESPI DISTRESS NOTED AT THIS TIME. NO SOB, BREATHING IS EVEN AND UNLABORED. IV ACCESS IN THADDEUS ML, RUNNING KCL 10 MEQ, AND NS TKO. PATENT, INTACT AND FLUSHING WELL. 2 RIGHT SHOULDER DRAINS NOTED WITH MINIMAL OUTPUT. SWELLING ON CHANDU NOTED. VIRAMONTES CATH IN PLACE, DRAINING MINIMAL URINE AT THIS TIME. PT NOTED TO HAVE WOUNDS ON THE FOLLOWING: SACRUM, SCROTUM AND GROIN AREAS. GANGRENE ON LEFT LOWER LEG AND LEFT TOES, LOOSELY WRAPPED WITH KERLIX FOR NOW. REDNESS ON THE NECK AND RASHES ON R UNDERARM. PT ALSO HAVE A MODERATE SIZE OF BUMP ON THE FOREHEAD. ALL PHOTOS TAKEN AND PLACED IN CHART. WOUND CONSULT PLACED. ALL SAFETY MEASURES IN PLACE: BED LOCKED IN LOW POSITION, BED ALARM ON, HOB ELEVATED. SR UP X 2, CALL LIGHT WITHIN REACH. WILL CONTINUE TO MONITOR PT.
[2022-11-14 20:00] VITALS: BP 107/81
[2022-11-14] MEDS: CEFEPIME 2 GM in IV D5W 100 ML IV SCH (20:08)
[2022-11-14 20:42] LABS: CREATININE 0.6 mg/dL (0.6-1.3)
[2022-11-14 20:46] LABS: POTASSIUM 2.1 mmol/L (3.5-5.1)
--- NOTE | 2022-11-14 20:49 | NUR ---
RN NOTE RECEIVED CRITICAL LAB FOR POTASSIUM- 2.1 PT STILL ON 5TH BAG OF KCL, 3 MORE BAGS TO GO. WILL UPDATE ONCE DONE WITH ALL THE BAGS.
[2022-11-14] MEDS ORDERED: CEFEPIME 1 GM in IV D5W 50 ML IV SCH (21:00)
[2022-11-14] MEDS: IV D5/ 0.9% NACL 1,000 ML IV PRN (21:49)
[2022-11-14] MEDS: INSULIN REGULAR, HUMAN 100 UNIT/ML 3 ML VIAL SQ PRN (22:43)
[2022-11-15] VITALS: BP 129/66
--- NOTE | 2022-11-15 03:15 | NUR ---
RN NOTE PM CARE AND WOUND CARE DONE. TURNED AND REPOSITIONED.
[2022-11-15 04:00] VITALS: BP 119/69
[2022-11-15] MEDS: CEFEPIME 2 GM in IV D5W 100 ML IV SCH ×3 (04:29→21:41)
--- NOTE | 2022-11-15 06:34 | NUR ---
RN CLOSING NOTE NO SIGNIFICANT CHANGE T/O THE NIGHT. PT REMAINED STABLE. DUE MEDS GIVEN. ALL NEEDS MET. WILL ENDORSE TO AM SHIFT NURSE FOR HERRERA.
[2022-11-15 07:25] LABS: CALCIUM, SERUM 6.9 mg/dL (8.5-10.1); CARBON DIOXIDE 32 mmol/L (21-32); CHLORIDE 107 mmol/L (98-107); CREATININE 0.5 mg/dL (0.6-1.3); GLUCOSE 94 mg/dL (74-106); MAGNESIUM 1.4 mg/dL (1.8-2.4); SODIUM SERUM 142 mmol/L (136-145); UREA NITROGEN, BLOOD 22 mg/dL (7-18)
[2022-11-15] MEDS: BLOOD SUGAR DIAGNOSTIC 1 EACH STRIP IN SCH ×4 (07:52→21:42)
[2022-11-15 08:00] VITALS: BP 134/76
[2022-11-15 08:01] LABS: POTASSIUM 2.4 mmol/L (3.5-5.1)
--- NOTE | 2022-11-15 09:04 | NUR ---
WOUND CARE CONSULT: PT PRESENTS WITH MULTIPLE WOUNDS AND SKIN ISSUES INCLUDING RT SHOULDER SURGICAL SITE WITH GAIL AND 2 WARNER DRAINS, SACRAL DEEP TISSUE INJURY WHICH EXTENDS TO BILATERAL BUTTOCKS AND OPENSKIN TO SCROTUM AND RT INNER THIGH, LEFT LOWER LEG AND FOOT WITH DRY BLACK NECROTIC TISSUE, RT ABOVE KNEE AMPUTATION STUMP NOTED, ALL PRESENT ON ADMISSION. DR LE AND DR DOWLING CALLED FOR SURGICAL AND DPM CONSULTS. DISCUSSED SKIN PROTECTION WI5TH NURSING STAFF. FIRST STEP LOW AIRLOSS MATTRESS ORDERED. IN AGREEMENT WITH PLAN OF CARE.
[2022-11-15] MEDS ORDERED: MAGNESIUM OXIDE 400 MG TABLET PO ONE (09:30)
[2022-11-15] MEDS: THIAMINE HCL 100 MG TABLET PO SCH (10:01)
[2022-11-15] MEDS: PANTOPRAZOLE 40 MG VIAL IV SCH (10:02)
[2022-11-15] MEDS: IV D5/ 0.9% NACL 1,000 ML IV PRN ×2 (10:11→23:58)
[2022-11-15] MEDS: POTASSIUM CL. PREMIX PERIPHER. 50 ML IV SCH ×5 (10:53→15:15)
[2022-11-15 12:00] VITALS: BP 94/51
[2022-11-15] MEDS ORDERED: K PHOS NEUTRAL 250 MG TABLET PO ONE (15:30)
[2022-11-15 16:34] VITALS: BP 120/70
[2022-11-15] MEDS: GLUCERNA SHAKE 237 ML CAN PO SCH (17:27)
[2022-11-15 17:41] LABS: BASOPHILS % (AUTO) 0.1 % (0.0-2.0); EOSINOPHILS % (AUTO) 0.5 % (0.0-6.0); HEMATOCRIT 24 % (39-51); HEMOGLOBIN 7.8 g/dL (13.5-17.5); LYMPHOCYTES # (AUTO) 1.2 K/uL (0.8-4.8); MEAN CORPUSCULAR HGB CONC 33 g/dl (31.0-36.0); MEAN CORPUSCULAR VOLUME 84 fL (80-96); MONOCYTES # (AUTO) 0.5 K/uL (0.1-1.30); MONOCYTES % (AUTO) 6.2 % (2.0-12.0); NEUTROPHILS # (AUTO) 7.1 K/uL (1.8-8.9); NEUTROPHILS % (AUTO) 80.2 % (43.0-81.0); PLATELET COUNT (AUTO) 197 K/uL (150-450); RED BLOOD CELL COUNT(AUTO) 2.86 MIL/uL (4.5-6.0); WHITE BLOOD COUNT (AUTO) 8.9 K/uL (4.3-11.0)
[2022-11-15 18:21] LABS: MAGNESIUM 1.3 mg/dL (1.8-2.4); POTASSIUM 3.1 mmol/L (3.5-5.1)
[2022-11-15 18:44] LABS: BAND % (MANUAL) 1 % (0.0-5.0); LYMPHOCYTES % (MANUAL) 8 % (16-48); MONOCYTES % (MANUAL) 4 % (0-11.0); NEUTROPHILS % (MANUAL) 87 (42-76)
--- NOTE | 2022-11-15 19:20 | NUR ---
rn closing note PATIENT IS IN BED , ALERT , ORIENTED TIMES 1 ON NC @ 2LPM, TOLERATING WELL WITH O2 SAT @ 98%. ADULT EDUCATOR READS SR. NO S/SX OF ACUTE RESPI DISTRESS NOTED AT THIS TIME. NO SOB, BREATHING IS EVEN AND UNLABORED. IV ACCESS IN THADDEUS ML, INTACT AND FLUSHING WELL. 2 RIGHT SHOULDER DRAINS NOTED WITH MINIMAL OUTPUT. SWELLING ON CHANDU NOTED. VIRAMONTES CATH IN PLACE, DRAINING MINIMAL ALL MEDICATIONS WERE ADMINISTRED , ALL NEEDS WERE MET .WILL ENDORSE DRUM SPRAYER NURSE TO FALLOW POC
--- NOTE | 2022-11-15 19:30 | NUR ---
PATIENT IS IN BED ASLEEP, AROUSABLE/RESPONSIVE. AOX1. CLOSING MACHINE OPERATOR READS SR. ON NC @ 3LPM, TOLERATING WELL WITH O2 SAT @ 98%. NO S/SX OF ACUTE RESPI DISTRESS NOTED AT THIS TIME. IV ACCESS IN THADDEUS PICC LINE, INFUSING D5NS @ 75 ML/HR. 2 RIGHT SHOULDER DRAINS NOTED WITH MINIMAL OUTPUT. SWELLING ON CHANDU NOTED. VIRAMONTES CATH IN PLACE, DRAINING MINIMAL. SAFETY MEASURES IN PLACE. HEAD OF BED ELEVATED, BED LOCKED AND IN LOWEST POSITION, SIDE RAILS UP X3. CALL LIGHT WITHIN REACH. WILL CONTINUE PLAN OF CARE.
[2022-11-15 20:00] VITALS: BP 135/57
[2022-11-15] MEDS ORDERED: VANCOMYCIN 1.25 GM in IV D5W 250 ML IV ONE (21:00)
[2022-11-15] MEDS: INSULIN REGULAR, HUMAN 100 UNIT/ML 3 ML VIAL SQ PRN (21:59)
[2022-11-16] VITALS: BP 128/60
--- NOTE | 2022-11-16 03:15 | NUR ---
Removed old FC, not draining. Inserted new FC, pt tolerated procedure well. Urine sample collected and sent to lab.
[2022-11-16 04:00] VITALS: BP 136/72
[2022-11-16] MEDS: CEFEPIME 2 GM in IV D5W 100 ML IV SCH ×3 (05:21→20:59)
--- NOTE | 2022-11-16 05:56 | NUR ---
Blood culture result gram positive cocci. MD informed.
[2022-11-16 06:02] LABS: BASOPHILS % (AUTO) 0.1 % (0.0-2.0); EOSINOPHILS % (AUTO) 0.5 % (0.0-6.0); HEMATOCRIT 23 % (39-51); HEMOGLOBIN 7.5 g/dL (13.5-17.5); LYMPHOCYTES # (AUTO) 1.3 K/uL (0.8-4.8); LYMPHOCYTES % (AUTO) 16.6 % (20.0-44.0); MEAN CORPUSCULAR HGB CONC 33 g/dl (31.0-36.0); MEAN CORPUSCULAR VOLUME 84 fL (80-96); MONOCYTES # (AUTO) 0.6 K/uL (0.1-1.30); MONOCYTES % (AUTO) 8.1 % (2.0-12.0); NEUTROPHILS # (AUTO) 5.8 K/uL (1.8-8.9); NEUTROPHILS % (AUTO) 74.7 % (43.0-81.0); PLATELET COUNT (AUTO) 156 K/uL (150-450); RED BLOOD CELL COUNT(AUTO) 2.75 MIL/uL (4.5-6.0); WHITE BLOOD COUNT (AUTO) 7.7 K/uL (4.3-11.0)
[2022-11-16 06:09] LABS: CALCIUM, SERUM 6.9 mg/dL (8.5-10.1); CARBON DIOXIDE 32 mmol/L (21-32); CHLORIDE 108 mmol/L (98-107); CREATININE 0.4 mg/dL (0.6-1.3); GLUCOSE 89 mg/dL (74-106); MAGNESIUM 1.3 mg/dL (1.8-2.4); PHOSPHORUS 2.3 mg/dL (2.5-4.9); SODIUM SERUM 143 mmol/L (136-145); UREA NITROGEN, BLOOD 18 mg/dL (7-18)
[2022-11-16 06:30] LABS: POTASSIUM 2.8 mmol/L (3.5-5.1)
--- NOTE | 2022-11-16 06:33 | NUR ---
Potassium 2.8 today from 2.4 yesterday. informed.
[2022-11-16 08:00] VITALS: BP 114/65
[2022-11-16] MEDS: GLUCERNA SHAKE 237 ML CAN PO SCH ×2 (08:00→16:07)
--- NOTE | 2022-11-16 08:01 | NUR ---
PT IS IN BED ASLEEP, AROUSABLE/RESPONSIVE. AOX1. INSURANCE VERIFICATION CLERK READS SR, HR 87. ON NC @ 3LPM, TOLERATING WELL WITH O2 SAT @ 100%. NO S/SX OF ACUTE RESPI DISTRESS AT THIS TIME. IV ACCESS IN THADDEUS PICC LINE, INFUSING D5NS @ 75 ML/HR. 2 RIGHT SHOULDER DRAINS NOTED WITH MINIMAL OUTPUT. SWELLING ON CHANDU NOTED. VIRAMONTES CATH IN PLACE, DRAINING MINIMAL. SAFETY MEASURES MAINTAINED. HEAD OF BED ELEVATED, BED LOCKED AND IN LOWEST POSITION, SIDE RAILS UP X3. CALL LIGHT WITHIN REACH. WILL ENDORSE TO NEXT NURSE ON DUTY FOR CONTINUITY OF CARE.
[2022-11-16] MEDS: BLOOD SUGAR DIAGNOSTIC 1 EACH STRIP IN SCH ×4 (08:02→22:47)
[2022-11-16] MEDS: THIAMINE HCL 100 MG TABLET PO SCH (08:08)
[2022-11-16] MEDS: PANTOPRAZOLE 40 MG VIAL IV SCH (08:08)
[2022-11-16] MEDS: POTASSIUM CHLORIDE 20 MEQ TAB.PRT.SR PO SCH ×3 (08:08→16:07)
[2022-11-16] MEDS: VANCOMYCIN 1 GM in IV D5W 250 ML IV SCH ×2 (08:08→21:39)
[2022-11-16] MEDS: PANTOPRAZOLE 40 MG TABLET.DR PO SCH (09:00)
[2022-11-16] MEDS: Magnesium 1GM/D5W 100ML PREMIX 100 ML IV SCH ×4 (09:20→11:30)
--- NOTE | 2022-11-16 09:33 | NUR ---
ALBA RN OPENING NOTES RECEIVED PT IS IN BED ASLEEP, AROUSABLE/RESPONSIVE WHEN AWAKEN, AOX1. FORCE DISPATCHER READS SR, HR 80'S. ON NC @ 3LPM, TOLERATING WELL, NO SOB NOTED, RESPIRATION EVEN AND UNLABORED, NO S/SX OF ACUTE RESPI DISTRESS AT THIS TIME. IV ACCESS IN THADDEUS PICC LINE, INFUSING D5NS @ 75 ML/HR. RIGHT SHOULDER NOTED WITH WARNER DRAIN WITH SEROUS DRAINAGE. BILATERAL UE EDEMA STILL NOTED. VIRAMONTES CATH IN PLACE, DRAINING VIA GRAVITY. RIGHT BKA DRESSING NOTED C/D/I, NO DRAINAGE NOTED. SAFETY MEASURES MAINTAINED. HEAD OF BED ELEVATED, BED LOCKED AND IN LOWEST POSITION, SIDE RAILS UP X3. CALL LIGHT WITHIN REACH. PLAN OF CARE CONTINUE. Addendum: 11/16/22 at 1928 by ROE NAIR RN CLARIFICATION:LEFT LEG EXTREMITY.
--- NOTE | 2022-11-16 09:33 | NUR ---
CALLED ULTRASOUND, NO ANSWER, CALLED XRAY, PER PARK WORKER SUPERVISOR HE WILL INFORMED THE HIGH SCHOOL LIBRARIAN ONCE HE GET A HOLD OF HER. WILL FOLLOW UP AGAIN LATER.
[2022-11-16] MEDS: IV D5/ 0.9% NACL 1,000 ML IV PRN (09:47)
[2022-11-16 10:56] LABS: BILIRUBIN,URINE NEGATIVE (NEGATIVE); COLOR,URINE YELLOW (YELLOW); LEUKOCYTE ESTERASE ,URINE 3+ (NEGATIVE); NITRITE, URINE NEGATIVE (NEGATIVE); PROTEIN,URINE 1+ mg/dl (NEGATIVE); UGLUCOSE NEGATIVE (NEGATIVE); UROBILINOGEN,URINE 0.2 EU/dL (0.2)
[2022-11-16 11:10] LABS: BACTERIA,URINE 1+ /HPF (None Seen); SQUAMOUS EPITHELIAL CELL,UR Few /HPF (None Seen); WBC,URINE 21-50 /HPF (0-3); YEAST,URINE Hyphal filaments /HPF (None Seen)
[2022-11-16 12:00] VITALS: BP 112/67
[2022-11-16] MEDS ORDERED: LIDOCAINE 1% INJ 50 ML MDV IJ ONE (12:02)
--- NOTE | 2022-11-16 12:59 | NUR ---
THORACENTESIS DONE ON THE LEFT PLEURAL SPACE, SENT 750ML CLEAR YELLOW URINE TO THE LABORATORY FOR PATHOLOGY ORDERED, STAT CHEST XRAY BEING DONE AT THIS MOMENT. Addendum: 11/17/22 at 1945 by ROE NAIR RN CORRECTION 780ML PLEURAL FLUID
[2022-11-16 16:00] VITALS: BP 128/72
[2022-11-16] MEDS ORDERED: NEUTRA PHOS 1 POWD.PACKET PO ONE (16:00)
--- NOTE | 2022-11-16 19:00 | NUR ---
RN OPENING NOTES RECEIVED PATIENT IN BED ASLEEP, EASY TO AROUSE AND RESPONSIVE WHEN AWAKEN, AAOX1. O2 VIA NC AT 3 L, O2 SAT 98%, TOLERATING WELL, NO SOB NOTED, RESPIRATION EVEN AND UNLABORED. ON TELE MONITOR SR, HR 82. IV ACCESS IN THADDEUS MIDLINE, INFUSING D5NS @ 75 ML/HR. RIGHT SHOULDER NOTED WITH WARNER DRAIN WITH SEROUS DRAINAGE. BILATERAL UE EDEMA NOTED. VIRAMONTES CATH IN PLACE, DRAINING CLEAR YELLOW URINE. SAFETY MEASURES IN PLACE: BED LOCKED AND IN LOWEST POSITION, CALL LIGHT WITHIN REACH, SIDE RAILS UP X3.
--- NOTE | 2022-11-16 19:26 | NUR ---
ALBA RN CLOSING NOTES PT IS IN BED ASLEEP, AROUSABLE/RESPONSIVE WHEN AWAKEN, AOX1. ROOFING APPRENTICE READS SR, HR 80'S. ON NC @ 3LPM, TOLERATING WELL, NO SOB NOTED, RESPIRATION EVEN AND UNLABORED, NO S/SX OF ACUTE RESPI DISTRESS AT THIS TIME. IV ACCESS IN THADDEUS PICC LINE, INFUSING D5NS @ 75 ML/HR. RIGHT SHOULDER NOTED WITH WARNER DRAIN WITH SEROUS DRAINAGE. BILATERAL UE EDEMA STILL NOTED. VIRAMONTES CATH IN PLACE, DRAINING CLEAR YELLOW URINE. LEFT LOWER LEG EXTREMITY WOUND DRESSING CHANGED, NO DRAINAGE NOTED. WOUND CARE RENDERED. SAFETY MEASURES MAINTAINED. HEAD OF BED ELEVATED, BED LOCKED AND IN LOWEST POSITION, SIDE RAILS UP X3.CALL LIGHT WITHIN REACH. ENDORSED TO NIGHT NURSE FOR HERRERA. Addendum: 11/17/22 at 1943 by ROE NAIR RN CORRECTION: THADEDUS JOHN
--- NOTE | 2022-11-16 19:28 | NUR ---
WOUND CULTURE DONE, CALLED LAB FOR SENIOR OPERATIONS ANALYST.
[2022-11-16 20:00] VITALS: BP 131/70
[2022-11-16] MEDS: INSULIN REGULAR, HUMAN 100 UNIT/ML 3 ML VIAL SQ PRN (22:48)
[2022-11-17] VITALS: BP 109/53
[2022-11-17 04:00] VITALS: BP 100/52
[2022-11-17] MEDS: IV D5/ 0.9% NACL 1,000 ML IV PRN ×2 (04:15→18:58)
[2022-11-17] MEDS: CEFEPIME 2 GM in IV D5W 100 ML IV SCH ×3 (05:21→20:57)
--- NOTE | 2022-11-17 06:59 | NUR ---
RN CLOSING NOTES PATIENT IN BED ASLEEP, EASY TO AROUSE AND RESPONSIVE WHEN AWAKEN, AAOX1. O2 VIA NC AT 3 L, O2 SAT 98%, TOLERATING WELL, NO SOB NOTED, RESPIRATION EVEN AND UNLABORED. ON TELE MONITOR ST WITH BBB, HR 120. IV ACCESS IN THADDEUS MIDLINE, INFUSING D5NS @ 75 ML/HR. RIGHT SHOULDER NOTED WITH WARNER DRAIN WITH SEROUS DRAINAGE. BILATERAL UE EDEMA NOTED. VIRAMONTES CATH IN PLACE, DRAINING CLEAR YELLOW URINE. ALL DUE MEDS WERE GIVEN AND NEEDS ATTENDED. SAFETY MEASURES IN PLACE: BED LOCKED AND IN LOWEST POSITION, CALL LIGHT WITHIN REACH, SIDE RAILS UP X3. WILL ENDORSE TO ONCOMING NURSE FOR HERRERA.
--- NOTE | 2022-11-17 07:30 | NUR ---
ALBA RN OPENING NOTES PT IS IN BED ASLEEP, AROUSABLE/RESPONSIVE WHEN AWAKEN, AOX1. 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 IV ACCESS IN THADDEUS MIDLINE, INFUSING D5NS @ 75 ML/HR. RIGHT SHOULDER NOTED WITH WARNER DRAIN WITH SEROUS DRAINAGE. BILATERAL UE EDEMA STILL NOTED, NOTED UE WIPING EDEMA, VIRAMONTES CATH IN PLACE, DRAINING YELLOW URINE. SAFETY MEASURES MAINTAINED. HEAD OF BED ELEVATED, BED LOCKED AND IN LOWEST POSITION, SIDE RAILS UP X3.CALL LIGHT WITHIN REACH. PLAN OF CARE CONTINUE.
[2022-11-17] MEDS: GLUCERNA SHAKE 237 ML CAN PO SCH ×2 (08:00→16:56)
[2022-11-17] MEDS: BLOOD SUGAR DIAGNOSTIC 1 EACH STRIP IN SCH ×4 (08:01→22:05)
[2022-11-17 08:07] LABS: BASOPHILS % (AUTO) 0.1 % (0.0-2.0); EOSINOPHILS % (AUTO) 0.3 % (0.0-6.0); HEMATOCRIT 23 % (39-51); HEMOGLOBIN 7.4 g/dL (13.5-17.5); LYMPHOCYTES # (AUTO) 1.3 K/uL (0.8-4.8); LYMPHOCYTES % (AUTO) 14.3 % (20.0-44.0); MEAN CORPUSCULAR HGB CONC 32 g/dl (31.0-36.0); MEAN CORPUSCULAR VOLUME 85 fL (80-96); MONOCYTES # (AUTO) 0.6 K/uL (0.1-1.30); MONOCYTES % (AUTO) 6.3 % (2.0-12.0); PLATELET COUNT (AUTO) 103 K/uL (150-450); RED BLOOD CELL COUNT(AUTO) 2.69 MIL/uL (4.5-6.0); WHITE BLOOD COUNT (AUTO) 8.9 K/uL (4.3-11.0)
[2022-11-17 08:41] LABS: CALCIUM, SERUM 6.9 mg/dL (8.5-10.1); CARBON DIOXIDE 31 mmol/L (21-32); CHLORIDE 105 mmol/L (98-107); CREATININE 0.3 mg/dL (0.6-1.3); GLUCOSE 111 mg/dL (74-106); MAGNESIUM 1.5 mg/dL (1.8-2.4); PHOSPHORUS 2.2 mg/dL (2.5-4.9); SODIUM SERUM 142 mmol/L (136-145); UREA NITROGEN, BLOOD 14 mg/dL (7-18)
--- NOTE | 2022-11-17 08:42 | NUR ---
INFORMED DOT ORGANIZATIONAL DEVELOPMENT MANAGER OF IN AND OUT AFIB, WITH NEW ORDER: STAT EKG AND CONSULT DR. CARBONE, NOTED AND CARRIED OUT, INFORMED PORFIRIO JAMES.
[2022-11-17] MEDS: THIAMINE HCL 100 MG TABLET PO SCH (08:55)
[2022-11-17] MEDS: PANTOPRAZOLE 40 MG TABLET.DR PO SCH (08:55)
[2022-11-17] MEDS: POTASSIUM CHLORIDE 20 MEQ TAB.PRT.SR PO SCH ×3 (08:56→16:09)
[2022-11-17] MEDS: VANCOMYCIN 1 GM in IV D5W 250 ML IV SCH ×2 (08:56→21:33)
[2022-11-17] MEDS: ACETAMINOPHEN 325 MG TABLET PO PRN (08:59)
--- NOTE | 2022-11-17 09:46 | NUR ---
STAT EKG DONE, RESULTS SENT TO DR. CARBONE.
[2022-11-17] MEDS ORDERED: POTASSIUM CHLORIDE 20 MEQ TAB.PRT.SR PO SCH (10:00)
[2022-11-17] MEDS ORDERED: AMIODARONE 150 MG in IV D5W 100 ML IV ONE (10:30)
[2022-11-17] MEDS ORDERED: AMIODARONE 450 MG in IV D5W 250 ML IV PRN (11:00)
[2022-11-17] MEDS: AMIODARONE 450 MG in IV D5W 241 ML IV PRN ×2 (11:16→17:40)
[2022-11-17] MEDS: Magnesium 1GM/D5W 100ML PREMIX 100 ML IV SCH ×2 (11:36→13:00)
[2022-11-17 12:00] VITALS: BP 104/51
[2022-11-17] MEDS ORDERED: NEUTRA PHOS 1 POWD.PACKET PO ONE (12:00)
--- NOTE | 2022-11-17 13:00 | NUR ---
NOTED MULTIPLE PETECHIA ON PATIENT'S LEFT HAND, AND PATIENT'S WEEPING EDEMA ON BUE, NO NEW ORDER, AND PER DOT STEAM PRESS TENDER CONTINUE IV FLUIDS OF THE PATIENT.
--- NOTE | 2022-11-17 14:46 | NUR ---
INFORMED DOT MILLARD THAT WE ARE ABLE TO GET CONSENT FOR PEG PLACEMENT. PER DOT MILLARD NO DATE YET FOR THE PEG PLACEMENT, GI WILL INFORMED US WHEN IT WILL BE DONE, CHARGE NURSE INFORMED.
[2022-11-17 16:00] VITALS: BP 123/75
[2022-11-17] MEDS: PROSOURCE / PROSTAT (PYXIS) 30 ML UDC GT SCH (17:00)
--- NOTE | 2022-11-17 19:57 | NUR ---
ALBA RN CLOSING NOTES PT IS IN BED ASLEEP, AROUSABLE/RESPONSIVE WHEN AWAKEN, AOX1. PATIENT ON CRATE TIER WITH UNCONTROLLED AFIB READING 98-108'S, NO C/O OF CHEST PAIN, ON NC @ 3LPM, TOLERATING WELL, NO SOB NOTED, RESPIRATION EVEN AND UNLABORED, NO S/SX OF ACUTE RESPI DISTRESS AT THIS TIME. IV ACCESS IN THADDUES MIDLINE, INFUSING WITH AMIODARONE AT 16.67ML/HR, LEFT WRIST PIV #20G NOTED WITH D5NS @75ML/HR, RIGHT SHOULDER NOTED WITH WARNER DRAIN WITH SEROUS DRAINAGE. BILATERAL UE EDEMA STILL NOTED, NOTED UE WIPING EDEMA, VIRAMONTES CATH IN PLACE, DRAINING YELLOW URINE. SAFETY MEASURES MAINTAINED. HEAD OF BED ELEVATED, BED LOCKED AND IN LOWEST POSITION, SIDE RAILS UP X3.CALL LIGHT WITHIN REACH. PLAN OF ENDORSED TO NIGHT NURSE FOR HERRERA.
[2022-11-17 20:00] VITALS: BP 116/75
[2022-11-17] MEDS: INSULIN REGULAR, HUMAN 100 UNIT/ML 3 ML VIAL SQ PRN (22:07)
--- NOTE | 2022-11-17 22:08 | NUR ---
RN NOTES: PT'S BLOOD SUGAR 160. 2 UNITS OF REGULAR INSULIN GIVEN. NO S/S OF HYPER/HYPOGLYCEMIA. WILL CONTIONUE TO MONITOR
[2022-11-18] VITALS: BP 120/77
[2022-11-18 04:00] VITALS: BP 111/76
[2022-11-18] MEDS: CEFEPIME 2 GM in IV D5W 100 ML IV SCH ×3 (04:23→20:43)
--- NOTE | 2022-11-18 06:40 | NUR ---
RN CLOSING NOTES PT IN BED ASLEEP BUT AROUSABLE. ALERT/ORIENTED X 1-2 AND VERBALLY RESPONSIVE. ON O2 AT 3L/MIN VIA N/C AND PT TOLERATED WELL. O2 SAT 97%. BREATHING EVEN AND UNLABORED. IV ACCESS ON LT WRIST#20 G INTACT AND PATENT. NO S/S OF INFILTRATIONS. RUNNING AMIODARONE AT 0.5 MG/HR. AND D5 NS AT 75CC/HR. THADDEUS MIDLINE ACCIDENTLY DISLODGED. ORDER- NEW MIDLINE. RIGHT SHOULDER NOTED WITH WARNER DRAINING WELL WITH TWO BULBS. BOTH UPPER EXTREMITIES NOTED WITH EDEMA. VIRAMONTES CATH IN PLACE, DRAINING BY GRAVITY. ALL DUE MEDS GIVEN ORDERED. ALL SAFETY MEASURES IN PLACE. HEAD OF BED ELEVATED, BED IN LOWEST POSITION AND LOCKED. SIDE RAILS UP X3.PLACE CALL LIGHT WITHIN REACH. WILL ENDORSE TO MORNING SHIFT NURSE.
--- NOTE | 2022-11-18 07:48 | NUR ---
ALBA RN OPENING NOTES RECEIVED PATIENT IN BED ASLEEP, AROUSABLE/RESPONSIVE WHEN AWAKEN, AOX1. PATIENT ON SHAPE CARVER WITH UNCONTROLLED AFIB READING 98-108'S, NO C/O OF CHEST PAIN, ON NC @ 3LPM, TOLERATING WELL, NO SOB NOTED, RESPIRATION EVEN AND UNLABORED, NO S/SX OF ACUTE RESPI DISTRESS AT THIS TIME. LEFT WRIST PIV #20G NOTED WITH D5NS @75ML/HR AND INFUSING AMIODARONE AT 16.67ML/HR, RIGHT SHOULDER NOTED WITH WARNER DRAIN. BILATERAL UE EDEMA STILL NOTED, NOTED UE WIPING EDEMA, VIRAMONTES CATH IN PLACE, DRAINING YELLOW URINE. SAFETY MEASURES MAINTAINED. HEAD OF BED ELEVATED, BED LOCKED AND IN LOWEST POSITION, SIDE RAILS UP X3.CALL LIGHT WITHIN REACH. PLAN OF CARE CONTINUE.
[2022-11-18 08:00] VITALS: BP 99/56
[2022-11-18] MEDS: BLOOD SUGAR DIAGNOSTIC 1 EACH STRIP IN SCH ×4 (08:22→22:09)
[2022-11-18] MEDS: GLUCERNA SHAKE 237 ML CAN PO SCH ×2 (08:32→16:25)
--- NOTE | 2022-11-18 09:00 | NUR ---
AMIODARONE DRIP INFUSED PER HOSPITAL PROTOCOL.
[2022-11-18] MEDS: PANTOPRAZOLE 40 MG TABLET.DR PO SCH (09:10)
[2022-11-18] MEDS: POTASSIUM CHLORIDE 20 MEQ TAB.PRT.SR PO SCH (09:10)
[2022-11-18] MEDS: VANCOMYCIN 1 GM in IV D5W 250 ML IV SCH ×2 (09:10→20:43)
[2022-11-18] MEDS: THIAMINE HCL 100 MG TABLET PO SCH (09:10)
[2022-11-18] MEDS: PROSOURCE / PROSTAT (PYXIS) 30 ML UDC GT SCH ×2 (09:11→16:25)
[2022-11-18 09:20] LABS: BASOPHILS % (AUTO) 0.1 % (0.0-2.0); EOSINOPHILS % (AUTO) 0.6 % (0.0-6.0); HEMATOCRIT 26 % (39-51); HEMOGLOBIN 8.3 g/dL (13.5-17.5); LYMPHOCYTES # (AUTO) 1.3 K/uL (0.8-4.8); LYMPHOCYTES % (AUTO) 14.6 % (20.0-44.0); MEAN CORPUSCULAR HGB CONC 32 g/dl (31.0-36.0); MEAN CORPUSCULAR VOLUME 86 fL (80-96); MONOCYTES # (AUTO) 0.6 K/uL (0.1-1.30); MONOCYTES % (AUTO) 6.5 % (2.0-12.0); NEUTROPHILS # (AUTO) 7.1 K/uL (1.8-8.9); NEUTROPHILS % (AUTO) 78.2 % (43.0-81.0); PLATELET COUNT (AUTO) 104 K/uL (150-450); RED BLOOD CELL COUNT(AUTO) 3.04 MIL/uL (4.5-6.0); WHITE BLOOD COUNT (AUTO) 9.1 K/uL (4.3-11.0)
[2022-11-18 09:51] LABS: CALCIUM, SERUM 7.2 mg/dL (8.5-10.1); CARBON DIOXIDE 29 mmol/L (21-32); CHLORIDE 107 mmol/L (98-107); CREATININE 0.4 mg/dL (0.6-1.3); GLUCOSE 105 mg/dL (74-106); MAGNESIUM 1.5 mg/dL (1.8-2.4); PHOSPHORUS 2.4 mg/dL (2.5-4.9); POTASSIUM 3.8 mmol/L (3.5-5.1); SODIUM SERUM 139 mmol/L (136-145); UREA NITROGEN, BLOOD 13 mg/dL (7-18)
--- NOTE | 2022-11-18 11:00 | NUR ---
NEW THADDEUS MIDLINE INSERTED BY MIDLINE NURSE. NOTED PATENT AND INTACT, FLUSHES WELL.
[2022-11-18 12:00] VITALS: BP 104/65
--- NOTE | 2022-11-18 13:00 | NUR ---
PATIENT CONVERTED TO SR 80'S. PATIENT NOTED ON PO AMIODARONE PER DR. CARBONE'S ORDER.
[2022-11-18] MEDS: IV D5/ 0.9% NACL 1,000 ML IV PRN (13:59)
[2022-11-18] MEDS ORDERED: MAGNESIUM OXIDE 400 MG TABLET PO ONE (14:30)
[2022-11-18] MEDS: ACETAMINOPHEN 325 MG TABLET PO PRN (14:39)
[2022-11-18 16:00] VITALS: BP 100/55
[2022-11-18] MEDS ORDERED: K PHOS NEUTRAL 250 MG TABLET PO ONE (16:00)
[2022-11-18] MEDS: AMIODARONE HCL 200 MG TABLET PO SCH (16:26)
--- NOTE | 2022-11-18 18:40 | NUR ---
INFORMED DOT METAL CEILING HANGER THAT PATIENT URINE OUTPUT IS 250ML THE WHOLE SHIFT, WITH ORDER TO INCREASE IV FLUIDS TO 75ML/HR TO 100ML/HR, NOTED AND CARRIED OUT.
--- NOTE | 2022-11-18 19:49 | NUR ---
ALBA RN CLOSING NOTES PATIENT IN BED ASLEEP, AROUSABLE/RESPONSIVE WHEN AWAKEN, AOX1. PATIENT ON SPEEDOMETER MECHANIC WITH SR 80'S, NO C/O OF CHEST PAIN, ON NC @ 3LPM, TOLERATING WELL, NO SOB NOTED, RESPIRATION EVEN AND UNLABORED, NO S/SX OF ACUTE RESPI DISTRESS AT THIS TIME. THADDEUS ML NOTED PATENT AND INTACT, FLUSHES WELL, WITH D5NS @100ML/HR. RIGHT SHOULDER NOTED WITH WARNER DRAIN. BILATERAL UE EDEMA STILL NOTED, NOTED UE WIPING EDEMA, VIRAMONTES CATH IN PLACE, DRAINING YELLOW URINE. SAFETY MEASURES MAINTAINED. HEAD OF BED ELEVATED, BED LOCKED AND IN LOWEST POSITION, SIDE RAILS UP X3.CALL LIGHT WITHIN REACH. ENDORSED TO NIGHT NURSE FOR HERRERA.
[2022-11-18 20:00] VITALS: BP 117/51
[2022-11-19] VITALS: BP 115/80
[2022-11-19 04:00] VITALS: BP 104/54
[2022-11-19] MEDS: CEFEPIME 2 GM in IV D5W 100 ML IV SCH ×3 (04:30→21:00)
--- NOTE | 2022-11-19 07:28 | NUR ---
ALBA TECHNICAL SPECIALIST CYTOGENETICS OPENING NOTE (DAYSHIFT) RECEIVED PATIENT IN BED ASLEEP, AROUSABLE/RESPONSIVE WHEN AWAKEN, AOX1. PATIENT ON NAIL EXPERT WITH UNCONTROLLED AFIB READING 90s-108'S, NO C/O OF CHEST PAIN, ON NC @ 3 LPM, TOLERATING WELL, NO SOB NOTED, RESPIRATION EVEN AND UNLABORED, NO S/SX OF ACUTE RESPI DISTRESS AT THIS TIME. LEFT WRIST PIV #20G saline locked. MIDLINE 18 CHRISTINE CATHETER TO LEFT UPPER ARM NOTED WITH D5NS @75ML/HR INFUSING WELL. RIGHT SHOULDER NOTED WITH 2 WARNER DRAINS. BILATERAL UE EDEMA STILL NOTED, NOTED UE WIPING EDEMA, VIRAMONTES CATH IN PLACE, DRAINING YELLOW URINE. SAFETY MEASURES MAINTAINED. HEAD OF BED ELEVATED, BED LOCKED AND IN LOWEST POSITION, SIDE RAILS UP X3.CALL LIGHT WITHIN REACH. WILL CONTINUE TO MONITOR AND CARE FOR PATIENT PER HOSPITALIST'S PLAN OF CARE.
[2022-11-19 08:00] VITALS: BP 108/71
[2022-11-19 08:05] LABS: BASOPHILS % (AUTO) 0.1 % (0.0-2.0); EOSINOPHILS % (AUTO) 0.4 % (0.0-6.0); HEMATOCRIT 21 % (39-51); LYMPHOCYTES # (AUTO) 1.2 K/uL (0.8-4.8); LYMPHOCYTES % (AUTO) 13.4 % (20.0-44.0); MEAN CORPUSCULAR HGB CONC 33 g/dl (31.0-36.0); MEAN CORPUSCULAR VOLUME 85 fL (80-96); MONOCYTES # (AUTO) 0.5 K/uL (0.1-1.30); MONOCYTES % (AUTO) 5.7 % (2.0-12.0); NEUTROPHILS # (AUTO) 7.2 K/uL (1.8-8.9); NEUTROPHILS % (AUTO) 80.4 % (43.0-81.0); PLATELET COUNT (AUTO) 79 K/uL (150-450); RED BLOOD CELL COUNT(AUTO) 2.51 MIL/uL (4.5-6.0)
[2022-11-19 08:21] LABS: CALCIUM, SERUM 7.1 mg/dL (8.5-10.1); CARBON DIOXIDE 30 mmol/L (21-32); CHLORIDE 108 mmol/L (98-107); CREATININE 0.3 mg/dL (0.6-1.3); GLUCOSE 98 mg/dL (74-106); PHOSPHORUS 2.5 mg/dL (2.5-4.9); POTASSIUM 3.3 mmol/L (3.5-5.1); SODIUM SERUM 140 mmol/L (136-145); UREA NITROGEN, BLOOD 13 mg/dL (7-18)
[2022-11-19 08:28] LABS: MAGNESIUM 1.2 mg/dL (1.8-2.4)
[2022-11-19] MEDS: BLOOD SUGAR DIAGNOSTIC 1 EACH STRIP IN SCH ×4 (08:29→22:37)
[2022-11-19] MEDS: INSULIN REGULAR, HUMAN 100 UNIT/ML 3 ML VIAL SQ PRN ×4 (08:30→22:37)
[2022-11-19] MEDS: GLUCERNA SHAKE 237 ML CAN PO SCH ×2 (08:32→17:24)
[2022-11-19] MEDS: PROSOURCE / PROSTAT (PYXIS) 30 ML UDC GT SCH ×2 (08:42→17:24)
[2022-11-19] MEDS: VANCOMYCIN 1 GM in IV D5W 250 ML IV SCH ×2 (08:51→20:05)
[2022-11-19] MEDS: THIAMINE HCL 100 MG TABLET PO SCH (08:52)
[2022-11-19] MEDS: IV D5/ 0.9% NACL 1,000 ML IV PRN (08:52)
[2022-11-19] MEDS: AMIODARONE HCL 200 MG TABLET PO SCH ×2 (08:52→17:26)
[2022-11-19] MEDS: PANTOPRAZOLE 40 MG TABLET.DR PO SCH (08:52)
[2022-11-19] MEDS: POTASSIUM CL. PREMIX PERIPHER. 50 ML IV SCH ×2 (10:54→11:54)
[2022-11-19] MEDS: Magnesium 1GM/D5W 100ML PREMIX 100 ML IV SCH ×4 (10:54→13:49)
[2022-11-19 12:00] VITALS: BP 124/73
--- NOTE | 2022-11-19 18:53 | NUR ---
ALBA HISTOLOGY MANAGER CLOSING NOTE PATIENT IN BED ASLEEP, AROUSABLE/RESPONSIVE WHEN AWAKEN, AOX1. PATIENT ON PUBLIC MESSAGE SERVICE SUPERVISOR WITH SR 80'S, NO C/O OF CHEST PAIN, ON NC @ 3LPM, TOLERATING WELL, NO SOB NOTED, RESPIRATION EVEN AND UNLABORED, NO S/SX OF ACUTE RESPI DISTRESS AT THIS TIME. THADDEUS ML NOTED PATENT AND INTACT, FLUSHES WELL, WITH D5NS @100ML/HR. RIGHT SHOULDER NOTED WITH WARNER DRAIN. BILATERAL UE EDEMA STILL NOTED, NOTED UE WIPING EDEMA, VIRAMONTES CATH IN PLACE, DRAINING YELLOW URINE. SAFETY MEASURES MAINTAINED. HEAD OF BED ELEVATED, BED LOCKED AND IN LOWEST POSITION, SIDE RAILS UP X3.CALL LIGHT WITHIN REACH. WILL ENDORSE TO NIGHT NURSE FOR HERRERA.
--- NOTE | 2022-11-19 19:30 | NUR ---
FARM RANCHER OPENING NOTE RECEIVED PT IN BED, AWAKE, A/O X 0. CURRENTLY ON 3L NC TOLERATING WELL, SATING @100%. LAUNDRY AGENT READS SR AT THIS TIME. NO SOB, BREATHING IS EVEN AND UNLABORED. NO S/SX OF ACUTE RESPI DISTRESS NOTED AT THIS TIME. IV ACCESS NOTED ON L WRIST, #20g, SL AND THADDEUS ML RUNNING D5NS @ 100 CC/HR. PT NOTED TO HAVE 2 R SHOULDER WARNER DRAINS WITH MINIMAL OUTPUT. R ARM NOTED TO BE SWOLLEN. FC IN PLACE DRAINING YELLOW URINE BY GRAVITY. R BKA NOTED, L LOWER LEG WITH GANGRENE, DRESSING IS CLEAN AND INTACT. ALL SAFETY MEASURES IN PLACE: BED LOCKED IN LOW POSITION, BED ALARM ON, SR UP X3. CALL LIGHT WITHIN REACH. WILL CONTINUE TO MONITOR PT.
[2022-11-19 20:00] VITALS: BP 100/76
[2022-11-19 20:39] LABS: BAND % (MANUAL) 3 % (0.0-5.0); LYMPHOCYTES % (MANUAL) 9 % (16-48); MONOCYTES % (MANUAL) 5 % (0-11.0); NEUTROPHILS % (MANUAL) 83 (42-76)
[2022-11-19] MEDS: MIRTAZAPINE 15 MG TABLET PO SCH (22:19)
[2022-11-20] VITALS: BP 115/67
--- NOTE | 2022-11-20 02:45 | NUR ---
RN NOTE SUCTIONING DONE
[2022-11-20 04:00] VITALS: BP 96/80
[2022-11-20] MEDS: IV D5/ 0.9% NACL 1,000 ML IV PRN ×2 (04:08→22:20)
[2022-11-20] MEDS: CEFEPIME 2 GM in IV D5W 100 ML IV SCH ×3 (04:08→22:03)
--- NOTE | 2022-11-20 06:30 | NUR ---
ASSOCIATE AUTOMATION ENGINEER CLOSING NOTE NO SIGNIFICANT CHANGE T/O THE NIGHT. PT REMAINED STABLE. ALL DUE MEDS GIVEN. NEEDS MET. PM CARE AND WOUND CARE DONE. TURNED AND REPOSITIONED. WILL ENDORSE TO AM SHIFT NURSE FOR HERRERA.
[2022-11-20] MEDS: BLOOD SUGAR DIAGNOSTIC 1 EACH STRIP IN SCH ×4 (07:42→22:48)
--- NOTE | 2022-11-20 07:58 | NUR ---
NIGHT ASSISTANT OPENING NOTE RECEIVED PT IN BED, AWAKE, ALERT AND ORIENTED X0. PT ON 3L NC TOLERATING WELL. ON TELE MONITOR SINUS RHYTM AT THIS TIME. NO COMPLAINTS OF PAIN OR DISCOMFORT NOTED AT THIS TIME. PT HAS IV ACCESS ON L WRIST 20 GUAGE. AND LEFT UPPER ARM MIDLINE. IV INTACT, PATENT AND FLUSHING WELL. PT HAS 2 R SHOULDER WARNER DRAIN WITH MINIMIAL OUTPUT. PT R ARM SWOLLEN. ELEVATED EXTRENITIES ON PILLOWS. ALL SAFETY MEASURES IN PLACE. BED LOCKED IN LOWEST POSITION. BED ALARM ON. SIDE RAILS UP X2. CALL LIGHT WITHIN REACH.
[2022-11-20 08:00] VITALS: BP 110/85
[2022-11-20] MEDS: THIAMINE HCL 100 MG TABLET PO SCH (08:39)
[2022-11-20] MEDS: VANCOMYCIN 1 GM in IV D5W 250 ML IV SCH ×2 (08:39→22:19)
[2022-11-20] MEDS: PANTOPRAZOLE 40 MG TABLET.DR PO SCH (08:39)
[2022-11-20] MEDS: AMIODARONE HCL 200 MG TABLET PO SCH ×2 (08:40→16:41)
[2022-11-20 09:12] LABS: BASOPHILS % (AUTO) 0.1 % (0.0-2.0); EOSINOPHILS % (AUTO) 0.1 % (0.0-6.0); HEMATOCRIT 23 % (39-51); HEMOGLOBIN 7.2 g/dL (13.5-17.5); LYMPHOCYTES # (AUTO) 0.8 K/uL (0.8-4.8); LYMPHOCYTES % (AUTO) 7.1 % (20.0-44.0); MEAN CORPUSCULAR HGB CONC 31 g/dl (31.0-36.0); MEAN CORPUSCULAR VOLUME 87 fL (80-96); MONOCYTES # (AUTO) 0.7 K/uL (0.1-1.30); MONOCYTES % (AUTO) 6.2 % (2.0-12.0); NEUTROPHILS # (AUTO) 9.9 K/uL (1.8-8.9); NEUTROPHILS % (AUTO) 86.5 % (43.0-81.0); PLATELET COUNT (AUTO) 98 K/uL (150-450); RED BLOOD CELL COUNT(AUTO) 2.66 MIL/uL (4.5-6.0); WHITE BLOOD COUNT (AUTO) 11.4 K/uL (4.3-11.0)
[2022-11-20 09:22] LABS: CALCIUM, SERUM 7.5 mg/dL (8.5-10.1); CARBON DIOXIDE 27 mmol/L (21-32); CHLORIDE 107 mmol/L (98-107); CREATININE 0.5 mg/dL (0.6-1.3); GLUCOSE 143 mg/dL (74-106); MAGNESIUM 1.5 mg/dL (1.8-2.4); PHOSPHORUS 2.8 mg/dL (2.5-4.9); POTASSIUM 3.3 mmol/L (3.5-5.1); SODIUM SERUM 139 mmol/L (136-145); UREA NITROGEN, BLOOD 18 mg/dL (7-18)
[2022-11-20] MEDS: GLUCERNA SHAKE 237 ML CAN PO SCH ×2 (09:35→16:01)
[2022-11-20] MEDS: PROSOURCE / PROSTAT (PYXIS) 30 ML UDC GT SCH ×2 (09:52→16:01)
--- NOTE | 2022-11-20 11:47 | NUR ---
rn note rounds made with Director Medical Writing sunny balderas. notified of potassium 3.3. scallop dredger aware
[2022-11-20 12:00] VITALS: BP 109/90
--- NOTE | 2022-11-20 12:55 | NUR ---
rn note notified meat carrier sunny balderas unable to give medications, pt unable to swallow and keep food in his mouth. gómez balderas said to keep him npo
[2022-11-20 13:10] LABS: BAND % (MANUAL) 4 % (0.0-5.0); EOSINOPHILS % (MANUAL) 0 % (0-4); LYMPHOCYTES % (MANUAL) 9 % (16-48); MONOCYTES % (MANUAL) 6 % (0-11.0); NEUTROPHILS % (MANUAL) 81 (42-76)
[2022-11-20 13:11] LABS: BASOPHILS % (MANUAL) 0 % (0.0-2.0)
[2022-11-20] MEDS: ACETYLCYSTEINE 10% SOLN 400 MG/4 ML VIAL NEB SCH ×2 (14:06→20:26)
[2022-11-20] MEDS: ALBUTEROL FS 2.5 MG/0.5 ML VIAL.NEB NEB SCH ×2 (14:06→20:26)
[2022-11-20] MEDS: Magnesium 1GM/D5W 100ML PREMIX 100 ML IV SCH ×3 (15:26→18:12)
[2022-11-20] MEDS: POTASSIUM CL. PREMIX PERIPHER. 50 ML IV SCH ×3 (15:27→18:12)
[2022-11-20 16:00] VITALS: BP 104/65
--- NOTE | 2022-11-20 17:10 | NUR ---
rn note notified dr. tracy that amiodarone was held due to pt not being able to swallow and keeping food in mouth. md zhu
--- NOTE | 2022-11-20 19:05 | NUR ---
JUNIOR LOAN PROCESSOR OPENING NOTE PT IS SLEEPING IN BED, ABLE TO BE AROUSED. HE IS VERY CONFUSED AND TALKED TO HIMSELF. AO X 0. PT IS ON 4 LPM OXYGEN VIA NC; TOLERATING WELL. PT IS ON EXTERNAL TELE MONITOR, ON THE MONITOR, HIS HEART RHYTHM IS CONTROLLED A-FIB WITH BBB; AND HIS HR IS AROUND 80S. PT IS NOT SHOWING OF HAVING LIM AT THIS MOMENT. NO S/S OF DISTRESS OR SOB.. PT HAS IV ACCESS AT L WRIST, #20G, SL. LEFT UPPER ARM, MID-LINE. #18G. RUNNING D5 NS @100 ML/ HR. IV SITE IS PATENT AND INTACT. PT HAS 2 WARNER DRAIN FROM HIS RIGHT SHOULDER, DRAINING SMALL AMOUNT OF RED COLOR DRAINAGE. PT'S BOTH ARM ARE SWELLING WITH LIGHT YELLOW COLOR FLUID LEAKING FROM THE PORES. ELEVATED BOTH ARMS WITH PILLOWS; AND PUT THE ARMS ON THE PADS TO ABSORB THE FLUID. ACCORDING THE CHANGE SHIFT REPORT, PT IS UNABLE TO SWALLOW ANYTHING, AND THE PT IS ON NPO. SAFETY MEASURES ARE IN PLACE. BED LOCKED AND IN LOWEST POSITION; BED ALARM IS ON. SIDE RAILS UP X2; CALL LIGHT AND TABLE ARE WITHIN REACH. WILL CONTINUE MONITORING THE PT AND PROVIDE THE CARE PT NEEDS.
--- NOTE | 2022-11-20 19:33 | NUR ---
ECONOMICS FACULTY MEMBER CLOSING NOTE PT IN ASLEEP IN BED. EASILY AROUSABLE AND RESPONSIVE. ALERT AND ORIENTED X1. PT ON TELE MONITOR CURRENTLY SHOWING SINUS RHYTHM 87.PT ON 3 l NASAL CANNULA SATURATING AT 100%. PT HAS LEFT UPPER ARM MIDLINE. IV INTACT, PATENT AND FLUSHING WELL. RIGHT SHOULDER NOTED WITH WARNER DRAIN. OUTPUT 25 CC. BILATERAL UPPER EXTREMITY EDEMA.WHIPPING EDEMA.ELEVATED EXTREMITIES ON PILLOWS.VIRAMONTES CATHETER IN PLACE. DRAINING YELLOW COLOR TO GRAVITY. NO SIGNS OF PAIN OR DISCOMFORT NOTED AT THIS TIME. ALL SAFETY MEASURES MAINTAINED. HEAD OF BED ELEVATED, BED LOCKED AND IN LOWEST POSITION, SIDE RAILS UP X3.CALL LIGHT WITHIN REACH. BED ALARM ON. ENDORSED TO NIGHT NURSE FOR CONTUITY OF CARE.
[2022-11-20 20:00] VITALS: BP 102/83
[2022-11-20] MEDS: MIRTAZAPINE 15 MG TABLET PO SCH (22:00)
--- NOTE | 2022-11-20 22:25 | NUR ---
NETWORK DIRECTOR NOTE PT IS ON NPO PER MD ORDER.
--- NOTE | 2022-11-20 22:25 | NUR ---
COMPUTER GAME PROGRAMMER NOTE PT IS UNABLE TO SWALLOW THE MEDICATION. MEDICATION IS NOT ABLE TO BE GIVEN TO THE PT. PT IS PENDING FOR G-TUBE PLACEMENT. AWARE.
[2022-11-21] VITALS (12 sets, daily range): BP systolic 97–136; BP diastolic 40–96
--- NOTE | 2022-11-21 | NUR ---
DAVID HUTTON NOTE SWITCHED ASSIGNMENT WITH BRENNEN MORENO DURING THE SHIFT. Addendum: 11/21/22 at 0021 by TEODORO LYONS RN MAYCO SHAH.
[2022-11-21] MEDS: ACETYLCYSTEINE 10% SOLN 400 MG/4 ML VIAL NEB SCH ×4 (01:13→20:28)
[2022-11-21] MEDS: ALBUTEROL FS 2.5 MG/0.5 ML VIAL.NEB NEB SCH ×4 (01:13→20:28)
[2022-11-21] MEDS: CEFEPIME 2 GM in IV D5W 100 ML IV SCH ×3 (04:12→20:21)
[2022-11-21 05:50] LABS: ABG BASE EXCESS 1.7 mmol/L; ABG OXYGEN SATURATION 98.9 % (92.0-98.5); ABG PCO2 29.5 mmHg (35.0-45.0); ABG PH 7.532 (7.350-7.450); ABG PO2 164.4 mmHg (75.0-100.0); AaDO2 86.9 mmHg; COHb 0.3 % (0.5-1.5); MetHb 0.1 % (0.0-1.5); O2Hb 98.5 % (94.0-97.0); SITE, ABG Left Radial
[2022-11-21 06:37] LABS: BASOPHILS % (AUTO) 0.3 % (0.0-2.0); EOSINOPHILS % (AUTO) 0.2 % (0.0-6.0); LYMPHOCYTES # (AUTO) 0.9 K/uL (0.8-4.8); LYMPHOCYTES % (AUTO) 9.6 % (20.0-44.0); MEAN CORPUSCULAR HGB CONC 32 g/dl (31.0-36.0); MEAN CORPUSCULAR VOLUME 88 fL (80-96); MONOCYTES # (AUTO) 0.9 K/uL (0.1-1.30); NEUTROPHILS # (AUTO) 7.8 K/uL (1.8-8.9); NEUTROPHILS % (AUTO) 80.9 % (43.0-81.0); PLATELET COUNT (AUTO) 82 K/uL (150-450); RED BLOOD CELL COUNT(AUTO) 2.21 MIL/uL (4.5-6.0); WHITE BLOOD COUNT (AUTO) 9.7 K/uL (4.3-11.0)
[2022-11-21 06:44] LABS: HEMATOCRIT 20 % (39-51); HEMOGLOBIN 6.2 g/dL (13.5-17.5)
[2022-11-21 06:45] LABS: CALCIUM, SERUM 7.3 mg/dL (8.5-10.1); CARBON DIOXIDE 26 mmol/L (21-32); CHLORIDE 109 mmol/L (98-107); CREATININE 0.5 mg/dL (0.6-1.3); GLUCOSE 88 mg/dL (74-106); MAGNESIUM 1.6 mg/dL (1.8-2.4); PHOSPHORUS 2.7 mg/dL (2.5-4.9); POTASSIUM 3.3 mmol/L (3.5-5.1); SODIUM SERUM 139 mmol/L (136-145); UREA NITROGEN, BLOOD 16 mg/dL (7-18)
--- NOTE | 2022-11-21 06:45 | NUR ---
BEAN SPROUT GROWER NOTE RECEIVED PHONE CALL FROM THE LAB FOR CRITICAL LAB VALUE FOR THE PT'S HEMOGLOBIN 6.2 AND HEMATOCRIT 20. REPORTED TO THE CHARGE NURSE, ESTHELA. WAS INSTRUCTED TO CALL THE LAB TO REPEAT THE LAB. CALLED THE LAB AND TALKED WITH RADHA, HE VERBALIZED THE LAB WILL BE REPEAT. CHARGE NURSE, ESTHELA, NOTIFIED.
--- NOTE | 2022-11-21 06:53 | NUR ---
CHARRER CLOSING NOTE PT IS SLEEPING IN BED, EASY TO BE AROUSED. HE IS VERY CONFUSED, AO X 0. PT IS ON 2 LPM OXYGEN VIA NC, AFTER THE ABG RESULTED THIS MORNING. PT TOLERATING WELL. NO S/S OF DISTRESS OR SOB. PT IS ON EXTERNAL TELE MONITOR, ON THE MONITOR, HIS HEART RHYTHM IS CONTROLLED A-FIB WITH BBB; AND HIS HR IS AROUND 80S. PT IS NOT SHOWING OF HAVING LIM AT THIS MOMENT. PT HAS IV ACCESS AT L WRIST, #20G, SL. LEFT UPPER ARM, MID-LINE. #18G. RUNNING D5 NS @100 ML/ HR. IV SITE IS PATENT AND INTACT. PT HAS 2 WARNER DRAIN FROM HIS RIGHT SHOULDER, DRAINING RED COLOR DRAINAGE. PT IS ON NPO. SAFETY MEASURES ARE IN PLACE. BED LOCKED AND IN LOWEST POSITION; BED ALARM IS ON. SIDE RAILS UP X2; CALL LIGHT AND TABLE ARE WITHIN REACH. WILL ENDORSE NEXT SHIFT NURSE FOR CONTINUING PT CARE.
--- NOTE | 2022-11-21 07:25 | NUR ---
RN OPENING NOTE RECEIVED PATIENT IN BED AWAKE, CONFUSED, TALKING TO SELF. ON O2 INHALATION @2LPM VIA N/C, SPO2 @98%, NO SOB NOTED. BREATHING EVEN AND UNLABORED. ON TELE MONITORING SHOWING A.FIB HR @92. NOTED WITH MIDLINE ON LEFT UPPER ARM #18G, INTACT AND PATENT WITH D5NS @100ML/HR RUNNING. F/C INTACT, DRAINING SILVERIO COLORED URINE. WARNER DRAIN TO BULB NOTED ON RIGHT SHOULDER WITH SEROSANGUINEOUS OUTPUT. SAFETY MEASURE IN PLACE. BED IN LOW AND LOCKED POSITION, SIDE RAILS UP X3, CALL LIGHT PLACED WITHIN EASY REACH. WILL CONTINUE TO MONITOR PATIENT.
[2022-11-21] MEDS: BLOOD SUGAR DIAGNOSTIC 1 EACH STRIP IN SCH ×4 (07:49→21:25)
[2022-11-21 07:52] LABS: HEMOGLOBIN 6.2 g/dL (13.5-17.5)
[2022-11-21] MEDS: PROSOURCE / PROSTAT (PYXIS) 30 ML UDC GT SCH ×2 (08:00→16:56)
[2022-11-21] MEDS: GLUCERNA SHAKE 237 ML CAN PO SCH ×2 (08:00→16:56)
[2022-11-21] MEDS: AMIODARONE HCL 200 MG TABLET PO SCH ×2 (08:56→16:56)
[2022-11-21] MEDS: PANTOPRAZOLE 40 MG TABLET.DR PO SCH (08:57)
[2022-11-21] MEDS: THIAMINE HCL 100 MG TABLET PO SCH (08:57)
[2022-11-21] MEDS: VANCOMYCIN 1 GM in IV D5W 250 ML IV SCH ×2 (08:58→21:07)
[2022-11-21] MEDS ORDERED: POTASSIUM CHLORIDE 20 MEQ TAB.PRT.SR PO SCH (09:30)
[2022-11-21 09:41] LABS: BAND % (MANUAL) 5 % (0.0-5.0); BASOPHILS % (MANUAL) 0 % (0.0-2.0); EOSINOPHILS % (MANUAL) 0 % (0-4); LYMPHOCYTES % (MANUAL) 7 % (16-48); MONOCYTES % (MANUAL) 6 % (0-11.0); NEUTROPHILS % (MANUAL) 82 (42-76)
[2022-11-21] MEDS: POTASSIUM CL. PREMIX PERIPHER. 50 ML IV SCH ×2 (09:47→10:48)
[2022-11-21] MEDS: Magnesium 1GM/D5W 100ML PREMIX 100 ML IV SCH ×2 (11:18→12:23)
[2022-11-21] MEDS: IV D5/ 0.9% NACL 1,000 ML IV PRN (12:32)
--- NOTE | 2022-11-21 13:20 | NUR ---
RN NOTE BLOOD TRANSFUSION OF 1 UNIT PRBC ONGOING, NO A/R NOTED. VITAL SIGNS TAKEN AND RECORDED. WILL CONTINUE TO MONITOR FOR ANY A/R.
--- NOTE | 2022-11-21 17:25 | NUR ---
RN NOTE BLOOD TRANSFUSION FINISHED. NO A/R NOTED. VITAL SIGNS STABLE.
--- NOTE | 2022-11-21 18:47 | NUR ---
RN CLOSING NOTE PATIENT IN BED ASLEEP, EASILY AWAKENED. REMAINS ON O2 INHALATION @2LPM VIA N/C, SPO2 @100%, NO SOB NOTED. BREATHING EVEN AND UNLABORED. CONTINUE ON TELE MONITORING SHOWING A.FIB HR @64. WITH MIDLINE ON LEFT UPPER ARM #18G, INTACT AND PATENT WITH D5NS @100ML/HR RUNNING. F/C INTACT, DRAINING SILVERIO COLORED URINE. WARNER DRAIN TO BULB NOTED ON RIGHT SHOULDER WITH SEROSANGUINEOUS OUTPUT. WOUND CARE PROVIDED. PATIENT REMAINS ON NPO. ASPIRATIONS PRECAUTIONS OBSERVED. SAFETY MEASURE MAINTAINED. BED IN LOW AND LOCKED POSITION, SIDE RAILS UP X3, CALL LIGHT PLACED WITHIN EASY REACH. WILL ENDORSE TO NEXT SHIFT FOR CONTINUITY OF CARE.
--- NOTE | 2022-11-21 19:30 | NUR ---
FOIL OPERATOR OPENING NOTES RECEIVED PT IN BED ASLEEP, EASILY AWAKENED. ON O2 2L VIA NC WITH NO SOB NOTED. BREATHING EVEN AND UNLABORED. ON TELE MONITORING SHOWING A.FIB HR @64. WITH MIDLINE ON LEFT UPPER ARM #18G, INTACT AND PATENT WITH D5NS @100ML/HR RUNNING. F/C INTACT, DRAINING SILVERIO COLORED URINE. WARNER DRAIN TO BULB NOTED ON RIGHT SHOULDER WITH SEROSANGUINEOUS OUTPUT. PATIENT REMAINS ON NPO. ASPIRATIONS PRECAUTIONS OBSERVED. SAFETY MEASURE IN PLACE: BED IN LOW AND LOCKED POSITION, SIDE RAILS UP X3, CALL LIGHT PLACED WITHIN EASY REACH. WILL CONTINUE TO MONITOR AND ASSIST.
[2022-11-21] MEDS: INSULIN REGULAR, HUMAN 100 UNIT/ML 3 ML VIAL SQ PRN (21:25)
[2022-11-21] MEDS: MIRTAZAPINE 15 MG TABLET PO SCH (21:32)
[2022-11-22] VITALS (11 sets, daily range): BP systolic 111–147; BP diastolic 44–88
[2022-11-22] MEDS: ALBUTEROL FS 2.5 MG/0.5 ML VIAL.NEB NEB SCH ×4 (00:59→19:58)
[2022-11-22] MEDS: ACETYLCYSTEINE 10% SOLN 400 MG/4 ML VIAL NEB SCH ×4 (00:59→19:58)
--- NOTE | 2022-11-22 02:56 | NUR ---
RN NOTE BEEN MONITORING PATIENT HEART RHYTHM, SUSTAINING SINUS RHYTHM SINCE START OF SHIFT (PREVIOUSLY CONTROLLED AFIB). CURRENT READING: SR WITH BBB'S AND OCCASIONAL PAC'S, 65 HR.
[2022-11-22] MEDS: IV D5/ 0.9% NACL 1,000 ML IV PRN (03:37)
[2022-11-22] MEDS: CEFEPIME 2 GM in IV D5W 100 ML IV SCH ×3 (04:40→21:12)
--- NOTE | 2022-11-22 06:37 | NUR ---
FLAVORING OIL FILTERER CLOSING NOTES PT IN BED ASLEEP, EASILY AROUSABLE. STABLE ON O2 2L VIA NC WITH NO SOB NOTED. BREATHING EVEN AND UNLABORED. ON TELE MONITORING SHOWING SR WITH BBB & OCCASIONAL PAC'S, 84 HR. WITH MIDLINE ON LEFT UPPER ARM #18G, INTACT AND PATENT WITH D5NS @100ML/HR RUNNING. F/C INTACT, DRAINING SILVERIO COLORED URINE, 450 ML TOTAL OUTPUT. WARNER DRAIN TO BULB NOTED ON RIGHT SHOULDER WITH SEROSANGUINEOUS OUTPUT, TOTAL OF 25 ML. PATIENT REMAINS ON NPO. ASPIRATIONS PRECAUTIONS OBSERVED. WOUND CARE PERFORMED AND PATIENT REPOSITIONED. ALL CARE PROVIDED AND MEDS TOLERATED WELL. SAFETY MEASURES MAINTAINED: BED IN LOW AND LOCKED POSITION, SIDE RAILS UP X3, CALL LIGHT PLACED WITHIN EASY REACH. WILL ENDORSE HERRERA TO DAY SHIFT NURSE.
[2022-11-22 07:15] LABS: BASOPHILS % (AUTO) 0.1 % (0.0-2.0); EOSINOPHILS % (AUTO) 0.4 % (0.0-6.0); HEMATOCRIT 21 % (39-51); LYMPHOCYTES # (AUTO) 0.9 K/uL (0.8-4.8); LYMPHOCYTES % (AUTO) 9.8 % (20.0-44.0); MEAN CORPUSCULAR HGB CONC 32 g/dl (31.0-36.0); MEAN CORPUSCULAR VOLUME 87 fL (80-96); MONOCYTES # (AUTO) 0.7 K/uL (0.1-1.30); MONOCYTES % (AUTO) 6.8 % (2.0-12.0); NEUTROPHILS % (AUTO) 82.9 % (43.0-81.0); PLATELET COUNT (AUTO) 79 K/uL (150-450); RED BLOOD CELL COUNT(AUTO) 2.43 MIL/uL (4.5-6.0); WHITE BLOOD COUNT (AUTO) 9.7 K/uL (4.3-11.0)
[2022-11-22 07:24] LABS: CALCIUM, SERUM 7.1 mg/dL (8.5-10.1); CARBON DIOXIDE 26 mmol/L (21-32); CHLORIDE 110 mmol/L (98-107); CREATININE 0.4 mg/dL (0.6-1.3); GLUCOSE 85 mg/dL (74-106); MAGNESIUM 1.4 mg/dL (1.8-2.4); PHOSPHORUS 2.4 mg/dL (2.5-4.9); POTASSIUM 2.9 mmol/L (3.5-5.1); SODIUM SERUM 140 mmol/L (136-145); UREA NITROGEN, BLOOD 13 mg/dL (7-18)
[2022-11-22] MEDS: VANCOMYCIN 1 GM in IV D5W 250 ML IV SCH ×2 (08:09→21:48)
[2022-11-22 08:12] LABS: HEMOGLOBIN 6.7 g/dL (13.5-17.5)
[2022-11-22] MEDS: BLOOD SUGAR DIAGNOSTIC 1 EACH STRIP IN SCH ×4 (08:41→21:53)
--- NOTE | 2022-11-22 08:53 | NUR ---
NURSING NOTE SPOKE TO DR CARBONE REGARDING PATIENTS VITALS 126/44 HR 54. PER DOCTOR, CHANGE AMIODARONE FROM 400MG TO 200MG AND GIVE IT THE NEW ORDER NOW.
[2022-11-22] MEDS: PROSOURCE / PROSTAT (PYXIS) 30 ML UDC GT SCH ×2 (08:56→19:03)
[2022-11-22] MEDS: GLUCERNA SHAKE 237 ML CAN PO SCH ×2 (08:56→17:00)
[2022-11-22] MEDS: THIAMINE HCL 100 MG TABLET PO SCH (08:57)
[2022-11-22] MEDS: PANTOPRAZOLE 40 MG TABLET.DR PO SCH (08:57)
[2022-11-22] MEDS: AMIODARONE HCL 200 MG TABLET PO SCH ×2 (08:59→19:12)
[2022-11-22] MEDS ORDERED: POTASSIUM CHLORIDE 20 MEQ POWDER PACKET GT SCH (09:00)
[2022-11-22] MEDS ORDERED: NEUTRA PHOS 1 POWD.PACKET PO ONE (11:00)
--- NOTE | 2022-11-22 12:34 | NUR ---
RN NOTE 1PRBC READY TO TRANSFUSE, NOTIFIED PHARMACY THAT IV MAGNESIUM WILL BE GIVEN WHEN TRANSFUSION IS COMPLETE.
--- NOTE | 2022-11-22 13:00 | NUR ---
RN NOTE 1300 DOSE OF MAXIPINE IV MED NOT ADMINISTERED AT THIS TIME DUE TO BLOOD TRANSFUSION OF RBC.
--- NOTE | 2022-11-22 17:41 | NUR ---
RN NOTE CLARIFIED RBC ORDER BY DR CARBONE. DOCTOR STATED ONLY ONE UNIT OF RBC TODAY. NOTIFIED BLOOD BANK TO HOLD DUPLICATE ORDER.
[2022-11-22] MEDS: Magnesium 1GM/D5W 100ML PREMIX 100 ML IV SCH ×3 (18:49→23:34)
--- NOTE | 2022-11-22 19:35 | NUR ---
CISSP OPENING NOTE PT IN BED ASLEEP, EASILY AROUSABLE. STABLE ON O2 2L VIA NC WITH NO SOB NOTED. BREATHING EVEN AND UNLABORED. ON TELE MONITORING SHOWING SR WITH BBB 90S. WITH MIDLINE ON LEFT UPPER ARM #18G, INTACT AND PATENT WITH MAGNESIUM @100ML/HR RUNNING, DRAINING SILVERIO COLORED URINE. WARNER DRAIN TO BULB NOTED ON RIGHT SHOULDER WITH SEROSANGUINEOUS OUTPUT. ASPIRATIONS PRECAUTIONS OBSERVED ON CLEAR LIQUID DIET. SAFETY MEASURES MAINTAINED: BED IN LOW AND LOCKED POSITION, SIDE RAILS UP X3, CALL LIGHT PLACED WITHIN EASY REACH. HOB ELEVATED FOR SAFETY.
--- NOTE | 2022-11-22 19:42 | NUR ---
SHEEP AND WHEAT FARMER CLOSING NOTES PT IN BED ASLEEP, EASILY AROUSABLE. STABLE ON O2 2L VIA NC WITH NO SOB NOTED. BREATHING EVEN AND UNLABORED. ON TELE MONITORING SHOWING SR WITH BBB 91 HR. WITH MIDLINE ON LEFT UPPER ARM #18G, INTACT AND PATENT WITH MAGNESIUM @100ML/HR RUNNING, BAG 1 OF 4, PHARMACY NOTIFIED DUE TO RUNNING 1PACK OF RBCS.F/C INTACT, DRAINING SILVERIO COLORED URINE, 400 ML TOTAL OUTPUT. WARNER DRAIN TO BULB NOTED ON RIGHT SHOULDER WITH SEROSANGUINEOUS OUTPUT, TOTAL OF 25 ML. ASPIRATIONS PRECAUTIONS OBSERVED ON CLEAR LIQUID DIET. WOUND CARE PERFORMED AND PATIENT REPOSITIONED. ALL CARE PROVIDED AND MEDS TOLERATED WELL. SAFETY MEASURES MAINTAINED: BED IN LOW AND LOCKED POSITION, SIDE RAILS UP X3, CALL LIGHT PLACED WITHIN EASY REACH. WILL ENDORSE HERRERA TO MILL WORKER NURSE.
[2022-11-22 19:59] LABS: HEMOGLOBIN 9.6 g/dL (13.5-17.5)
[2022-11-22] MEDS: MIRTAZAPINE 15 MG TABLET PO SCH (21:18)
--- NOTE | 2022-11-22 21:18 | NUR ---
RN NOTE PT NURSING SWALLOW EVAL ATTEMPTED PT NOT ABLE TO FOLLOW COMMANDS. NOT SAFE TO ADMINISTER P.O MEDS.
[2022-11-22] MEDS: INSULIN REGULAR, HUMAN 100 UNIT/ML 3 ML VIAL SQ PRN (21:54)
[2022-11-23 00:15] VITALS: BP 139/62
[2022-11-23] MEDS: Magnesium 1GM/D5W 100ML PREMIX 100 ML IV SCH (00:56)
[2022-11-23] MEDS: ALBUTEROL FS 2.5 MG/0.5 ML VIAL.NEB NEB SCH ×4 (01:18→20:03)
[2022-11-23] MEDS: ACETYLCYSTEINE 10% SOLN 400 MG/4 ML VIAL NEB SCH ×4 (01:18→20:03)
[2022-11-23] MEDS: CEFEPIME 2 GM in IV D5W 100 ML IV SCH ×3 (05:05→21:41)
[2022-11-23 05:19] VITALS: BP 110/73
--- NOTE | 2022-11-23 06:49 | NUR ---
BINDER STRIPPER HAND CLOSING NOTES PT IN BED ASLEEP, EASILY AROUSABLE. STABLE ON O2 2L VIA NC WITH NO SOB NOTED. BREATHING EVEN AND UNLABORED. ON TELE MONITORING SHOWING SR WITH BBB 60S HR. WITH MIDLINE ON LEFT UPPER ARM #18G, INTACT AND PATENT DRAINING SILVERIO COLORED URINE, 400 ML TOTAL OUTPUT. WARNER DRAIN X2 NOTED ON RIGHT SHOULDER WITH SEROSANGUINEOUS OUTPUT 35CC, ASPIRATIONS PRECAUTIONS OBSERVED ON CLEAR LIQUID DIET. WOUND CARE PERFORMED AND PATIENT REPOSITIONED. ALL CARE PROVIDED AND MEDS TOLERATED WELL. SAFETY MEASURES MAINTAINED: BED IN LOW AND LOCKED POSITION, SIDE RAILS UP X3, CALL LIGHT PLACED WITHIN EASY REACH. WILL ENDORSE HERRERA TO DAY SHIFT NURSE.
--- NOTE | 2022-11-23 07:35 | NUR ---
INSPECTOR GOVERNMENT PROPERTY OPENING NOTES RECEIVED PT IN BED ASLEEP. STABLE ON O2 2L VIA NC WITH NO SOB NOTED. BREATHING EVEN AND UNLABORED. WITH MIDLINE ON LEFT UPPER ARM #18G, INTACT AND PATENT. VIRAMONTES CATHETER DRAINING LIGHT PINK URINE. WARNER DRAIN X2 NOTED ON RIGHT SHOULDER WITHASPIRATIONS PRECAUTIONS OBSERVED. PATIENT NPO STATUS OF MIDNIGHT. SAFETY MEASURES IN PLACE: BED IN LOW AND LOCKED POSITION, SIDE RAILS UP X3, CALL LIGHT PLACED WITHIN EASY REACH. WILL CONTINUE TO MONITOR. Addendum: 11/23/22 at 0754 by ROGELIO BECERRA RN OPENING NOTE COMPLETED BY APOLONIA
--- NOTE | 2022-11-23 07:54 | NUR ---
DEPUTY SHERIFF K9 HANDLER OPENING NOTES RECEIVED PT IN BED ASLEEP. STABLE ON O2 2L VIA NC WITH NO SOB NOTED. BREATHING EVEN AND UNLABORED. WITH MIDLINE ON LEFT UPPER ARM #18G, INTACT AND PATENT. VIRAMONTES CATHETER DRAINING LIGHT PINK URINE. WARNER DRAIN X2 NOTED ON RIGHT SHOULDER WITHASPIRATIONS PRECAUTIONS OBSERVED. PATIENT NPO STATUS OF MIDNIGHT. SAFETY MEASURES IN PLACE: BED IN LOW AND LOCKED POSITION, SIDE RAILS UP X3, CALL LIGHT PLACED WITHIN EASY REACH. WILL CONTINUE TO MONITOR.
[2022-11-23 08:00] VITALS: BP 131/73
[2022-11-23] MEDS: GLUCERNA SHAKE 237 ML CAN PO SCH ×2 (08:00→17:00)
[2022-11-23] MEDS: PROSOURCE / PROSTAT (PYXIS) 30 ML UDC GT SCH ×2 (08:00→17:00)
[2022-11-23 08:08] LABS: BASOPHILS % (AUTO) 0.3 % (0.0-2.0); EOSINOPHILS % (AUTO) 0.5 % (0.0-6.0); HEMATOCRIT 27 % (39-51); HEMOGLOBIN 8.8 g/dL (13.5-17.5); LYMPHOCYTES % (AUTO) 9.4 % (20.0-44.0); MEAN CORPUSCULAR HGB CONC 32 g/dl (31.0-36.0); MEAN CORPUSCULAR VOLUME 86 fL (80-96); MONOCYTES # (AUTO) 0.6 K/uL (0.1-1.30); MONOCYTES % (AUTO) 5.9 % (2.0-12.0); NEUTROPHILS # (AUTO) 8.7 K/uL (1.8-8.9); NEUTROPHILS % (AUTO) 83.9 % (43.0-81.0); PLATELET COUNT (AUTO) 83 K/uL (150-450); RED BLOOD CELL COUNT(AUTO) 3.18 MIL/uL (4.5-6.0); WHITE BLOOD COUNT (AUTO) 10.3 K/uL (4.3-11.0)
[2022-11-23 08:27] LABS: ALANINE AMINOTRANSFERASE < 6 U/L (12-78); ALKALINE PHOSPHATASE 139 U/L (46-116); ASPARTATE AMINOTRANSFERASE 18 U/L (15-37); BILIRUBIN,TOTAL 0.6 mg/dL (0.2-1.0); CALCIUM, SERUM 7.3 mg/dL (8.5-10.1); CARBON DIOXIDE 26 mmol/L (21-32); CHLORIDE 110 mmol/L (98-107); CREATININE 0.4 mg/dL (0.6-1.3); GLUCOSE 86 mg/dL (74-106); MAGNESIUM 1.9 mg/dL (1.8-2.4); PHOSPHORUS 2.2 mg/dL (2.5-4.9); POTASSIUM 3.2 mmol/L (3.5-5.1); SODIUM SERUM 140 mmol/L (136-145); TOTAL PROTEIN, SERUM 4.3 g/dL (6.4-8.2); UREA NITROGEN, BLOOD 13 mg/dL (7-18)
[2022-11-23 08:49] LABS: ALBUMIN 0.7 g/dL (3.4-5.0)
[2022-11-23] MEDS: THIAMINE HCL 100 MG TABLET PO SCH ×2 (09:00→10:50)
[2022-11-23] MEDS: PANTOPRAZOLE 40 MG TABLET.DR PO SCH ×2 (09:00→10:50)
[2022-11-23] MEDS: AMIODARONE HCL 200 MG TABLET PO SCH ×3 (09:00→17:19)
[2022-11-23] MEDS: BLOOD SUGAR DIAGNOSTIC 1 EACH STRIP IN SCH ×4 (09:01→22:24)
[2022-11-23] MEDS: INSULIN REGULAR, HUMAN 100 UNIT/ML 3 ML VIAL SQ PRN ×3 (09:01→17:16)
--- NOTE | 2022-11-23 09:18 | NUR ---
QUALITY CONTROL ENGINEERING TECHNICIAN NOTES ORDERED SWALLOW EVAL PER DWAYNE MUÑOZ STAFF EDUCATOR TO DETERMINE WHETHER PATIENT CAN RESUME PO MEDS ORDERED.
--- NOTE | 2022-11-23 09:57 | NUR ---
WOUND CARE CONSULT/FOLLOW UP: PT SEEN FOR RE-EVALUATION OF SACRAL DEEP TISSUE INJURY WITH SCARRING, PRESENT ON ADMISSION. PT CONTINUES TO HAVE INTACT SACRAL DTI WHICH EXTENDS TO BUTTOCKS. CONTINUE PRESENT TREATMENT WITH OPTIFOAM DRESSING AND OFFLOADING. DISCUSSED WITH NURSING STAFF. PT CONTINUES TO HAVE RT SHOULDER INCISION WITH GAIL AND TWO WARNER DRAINS WITH SMALL AMOUNT OF RED DRAINAGE (PRESENT ON ADMISSION). PER SURGICAL TEAM CURRENTLY ON CASE FOR WOUNDS, RT SHOULDER IS FOLLOWED BY ORTHO SURGEON. DISCUSSED WITH MULTI MEDIA SPECIALIST. PT NOTED TO HAVE PROFOUND WEEPING EDEMA, ESPECIALLY PERINEAL AREA, THIGHS AND UPPER EXTREMITIES. DISCUSSED SKIN PROTECTION WITH NURSING STAFF. PT IS ON FIRST STEP CIRS LOW AIRLOSS MATTRESS.
--- NOTE | 2022-11-23 10:31 | NUR ---
BRENNEN NOTES FOR PO MEDS AWAITING SWALLOW EVAL ORDERED BY DWAYNE MUÑOZ NP BEFORE RESUMING PO MEDS. Addendum: 11/23/22 at 1119 by ROGELIO BECERRA RN PLEASE DISREGARD. PATIENT PASSED SWALLOW EVAL. MEDICATION ADMINISTERED. EMAR UPDATED.
[2022-11-23] MEDS ORDERED: POTASSIUM CHLORIDE 20 MEQ POWDER PACKET PO ONE (11:00)
[2022-11-23] MEDS: VANCOMYCIN HCL 0.75 GM in IV D5W 250 ML IV SCH ×2 (11:10→23:00)
--- NOTE | 2022-11-23 11:19 | NUR ---
RN NOTES ON SWALLOW EVAL PATIENT PASSED SWALLOW EVAL. MEDICATIONS ADMINISTERED ORDERED. CRUSHED MEDS AND ADMINISTERED WITH APPLE SAUCE.
[2022-11-23 12:00] VITALS: BP 97/55
[2022-11-23] MEDS ORDERED: NEUTRA PHOS 1 POWD.PACKET PO ONE (15:00)
[2022-11-23 16:00] VITALS: BP 95/72
[2022-11-23 16:21] LABS: LYMPHOCYTES % (MANUAL) 5 % (16-48); MONOCYTES % (MANUAL) 7 % (0-11.0); NEUTROPHILS % (MANUAL) 88 (42-76)
--- NOTE | 2022-11-23 19:29 | NUR ---
ELECTRIC LOCOMOTIVE CRANE OPERATOR CLOSING NOTES PT IN BED ASLEEP. A/O X1-2. AROUSABLE TO NAME. ON O2 2L VIA NC WITH NO S/S OF DISTRESS OR SOB NOTED. BREATHING EVEN AND UNLABORED. WITH MIDLINE ON LEFT UPPER ARM #18G, INTACT AND PATENT. VIRAMONTES CATHETER DRAINING LIGHT PINK URINE. WARNER DRAIN X2 ON RIGHT SHOULDER DRAINING SEROSANGUINEOUS FLUID. PATIENT REMAINS ON NPO STATUS EXCEPT FOR MEDS. PATIENT CLEANED AND WOULD CARE ADMINISTERED. ALL DUE MEDS GIVEN. SAFETY MEASURES IN PLACE: BED IN LOW AND LOCKED POSITION, SIDE RAILS UP X3, CALL LIGHT PLACED WITHIN EASY REACH. WILL ENDORSE TO ONCOMING SHIFT FOR HERRERA.
--- NOTE | 2022-11-23 19:40 | NUR ---
RN OPENING NOTES RECEIVED PATIENT IN BED, ASLEEP, AAO X1-2, AROUSABLE TO NAME. O2 VIA NC AT 2L, NO SOB/DISTRESS NOTED. BREATHING EVEN AND UNLABORED. IV ACCESS ON THADDEUS MIDLINE, INTACT AND PATENT. WARNER DRAIN X2 ON RIGHT SHOULDER DRAINING SEROSANGUINEOUS FLUID. VIRAMONTES CATHETER DRAINING IN PLACE, INTACT AND HAS SLIGHT HEMATURIA. PATIENT IS NPO EXCEPT FOR MEDS FOR PEG PLACEMENT TOMORROW. SAFETY MEASURES IN PLACE: BED LOCKED AND IN LOWEST POSITION, CALL LIGHT WITHIN REACH, SIDE RAILS UP X3.
--- NOTE | 2022-11-23 19:49 | NUR ---
RN NOTE CRITICAL LAB VALUE ALBUMIN 0.7, KANIKA WALLIS HEALTH ADMINISTRATION TEACHER MADE AWARE. ADVISED TO RE-CHECK ALBUMIN LEVELS IN THE MORNING.
[2022-11-23 20:00] VITALS: BP 124/56
[2022-11-23] MEDS: MIRTAZAPINE 15 MG TABLET PO SCH (21:42)
[2022-11-23] MEDS: DEXTROSE 50%-WATER 50 ML DISP.SYRIN IV PRN (22:30)
--- NOTE | 2022-11-23 22:31 | NUR ---
RN NOTE PATIENT'S BLOOD SUGAR IS 60. ADMINISTERED D50 PER PROTOCOL. KANIKA WALLIS PARKING ENFORCER MADE AWARE AND ORDERED TO START D5NS AT 90 ML/HR. NOTED AND CARRIED OUT.
[2022-11-23] MEDS: IV D5/ 0.9% NACL 1,000 ML IV PRN (23:25)
--- NOTE | 2022-11-23 23:30 | NUR ---
RN NOTE VANCO TROUGH IS 25, HELD [facility]
[2022-11-24] VITALS: BP 107/72
[2022-11-24] MEDS: ALBUTEROL FS 2.5 MG/0.5 ML VIAL.NEB NEB SCH ×4 (01:15→20:06)
[2022-11-24] MEDS: ACETYLCYSTEINE 10% SOLN 400 MG/4 ML VIAL NEB SCH ×4 (01:15→20:06)
[2022-11-24 04:00] VITALS: BP 136/53
[2022-11-24] MEDS: CEFEPIME 2 GM in IV D5W 100 ML IV SCH ×3 (05:22→21:53)
[2022-11-24 06:22] LABS: BASOPHILS % (AUTO) 0.3 % (0.0-2.0); EOSINOPHILS % (AUTO) 0.5 % (0.0-6.0); HEMATOCRIT 25 % (39-51); HEMOGLOBIN 8.2 g/dL (13.5-17.5); LYMPHOCYTES # (AUTO) 1.1 K/uL (0.8-4.8); LYMPHOCYTES % (AUTO) 10.8 % (20.0-44.0); MEAN CORPUSCULAR HGB CONC 33 g/dl (31.0-36.0); MEAN CORPUSCULAR VOLUME 85 fL (80-96); MONOCYTES # (AUTO) 0.6 K/uL (0.1-1.30); MONOCYTES % (AUTO) 6.1 % (2.0-12.0); NEUTROPHILS # (AUTO) 8.1 K/uL (1.8-8.9); NEUTROPHILS % (AUTO) 82.3 % (43.0-81.0); PLATELET COUNT (AUTO) 77 K/uL (150-450); RED BLOOD CELL COUNT(AUTO) 2.93 MIL/uL (4.5-6.0); WHITE BLOOD COUNT (AUTO) 9.8 K/uL (4.3-11.0)
--- NOTE | 2022-11-24 06:59 | NUR ---
RN CLOSING NOTES PATIENT IN BED, ASLEEP, AAO X1-2, AROUSABLE TO NAME. O2 VIA NC AT 2L, NO SOB/DISTRESS NOTED. BREATHING EVEN AND UNLABORED. ON TELE MONITOR SR 94 WITH BBB AND OCCASIONAL PVCS. IV ACCESS ON THADDEUS MIDLINE, INTACT AND PATENT RUNNING D5NS AT 90 ML/HR. WARNER DRAIN X2 ON RIGHT SHOULDER DRAINING SEROSANGUINEOUS FLUID. VIRAMONTES CATHETER DRAINING IN PLACE, INTACT AND HAS SLIGHT HEMATURIA, OUTPUT OF 75ML. PATIENT IS NPO EXCEPT FOR MEDS FOR PEG PLACEMENT. ALL DUE MEDS WERE GIVEN AND NEEDS ATTENDED. SAFETY MEASURES MAINTAINED: BED LOCKED AND IN LOWEST POSITION, CALL LIGHT WITHIN REACH, SIDE RAILS UP X3. WILL ENDORSE TO ONCOMING NURSE FOR HERRERA.
--- NOTE | 2022-11-24 07:28 | NUR ---
RN OPENING NOTES PATIENT RECEIVED IN BED, ASLEEP. AAO X1-2, AROUSABLE TO NAME. O2 VIA NC AT 2L, NO SOB/DISTRESS NOTED. BREATHING EVEN AND UNLABORED. IV ACCESS ON THADDEUS MIDLINE, INTACT AND PATENT RUNNING D5NS AT 90 ML/HR. WARNER DRAIN X2 ON RIGHT SHOULDER DRAINING SEROSANGUINEOUS FLUID. VIRAMONTES CATHETER DRAINING IN PLACE, INTACT WITH SLIGHT HEMATURIA. PATIENT REMAINS NPO EXCEPT FOR MEDS. SAFETY MEASURES MAINTAINED: BED LOCKED AND IN LOWEST POSITION, CALL LIGHT WITHIN REACH, SIDE RAILS UP X3. WILL CONTINUE TO MONITOR.
[2022-11-24 07:39] LABS: CALCIUM, SERUM 7.4 mg/dL (8.5-10.1); CARBON DIOXIDE 24 mmol/L (21-32); CHLORIDE 111 mmol/L (98-107); CREATININE 0.3 mg/dL (0.6-1.3); GLUCOSE 75 mg/dL (74-106); MAGNESIUM 1.8 mg/dL (1.8-2.4); PHOSPHORUS 2.6 mg/dL (2.5-4.9); POTASSIUM 3.2 mmol/L (3.5-5.1); SODIUM SERUM 141 mmol/L (136-145); UREA NITROGEN, BLOOD 15 mg/dL (7-18)
[2022-11-24 07:44] LABS: ALBUMIN 0.6 g/dL (3.4-5.0)
--- NOTE | 2022-11-24 07:51 | NUR ---
RN NOTE CRITICAL LAB RECEIVED FOR ALBUMIN 0.6. DWAYNE MUÑOZ BRAILLE CODER NOTIFIED.
[2022-11-24 08:00] VITALS: BP 91/45
[2022-11-24] MEDS: PROSOURCE / PROSTAT (PYXIS) 30 ML UDC GT SCH ×2 (08:00→16:32)
[2022-11-24] MEDS: GLUCERNA SHAKE 237 ML CAN PO SCH ×2 (08:00→17:29)
[2022-11-24] MEDS: AMIODARONE HCL 200 MG TABLET PO SCH ×2 (08:10→17:29)
[2022-11-24] MEDS: THIAMINE HCL 100 MG TABLET PO SCH (08:10)
[2022-11-24] MEDS: PANTOPRAZOLE 40 MG TABLET.DR PO SCH (08:10)
[2022-11-24] MEDS: BLOOD SUGAR DIAGNOSTIC 1 EACH STRIP IN SCH ×4 (08:29→22:51)
[2022-11-24] MEDS: INSULIN REGULAR, HUMAN 100 UNIT/ML 3 ML VIAL SQ PRN ×4 (08:30→22:57)
[2022-11-24 10:34] LABS: LYMPHOCYTES % (MANUAL) 7 % (16-48); MONOCYTES % (MANUAL) 4 % (0-11.0); NEUTROPHILS % (MANUAL) 89 (42-76)
[2022-11-24] MEDS: VANCOMYCIN HCL 0.75 GM in IV D5W 250 ML IV SCH ×2 (11:00→23:37)
--- NOTE | 2022-11-24 11:03 | NUR ---
RN NOTES ON VANCO HELD DOSE DUE TO TROUGH LEVEL OF 25.
--- NOTE | 2022-11-24 11:05 | NUR ---
RN NOTES DWAYNE MUÑOZ LUNG SPLITTER MADE AWARE OF HEMATURIA IN URINE WELL NEED FOR PATIENT TO SEE ORTHO FOR SHOULDER AND WARNER DRAIN.
--- NOTE | 2022-11-24 11:06 | NUR ---
RN NOTE TONI MILLARD STATED PT MAY BE REMOVED FROM NPO STATUS. MAY START PUREED DIET.
[2022-11-24 12:00] VITALS: BP 103/56
[2022-11-24] MEDS ORDERED: POTASSIUM CHLORIDE 20 MEQ POWDER PACKET PO ONE (12:00)
--- NOTE | 2022-11-24 15:19 | NUR ---
RN NOTES CONSENT FOR THORACENTESIS ON LEFT LUNG RECEIVED VIA TELEPHONE WITH PT'S DAUGHTER PAUL. PUT IN CHART.
[2022-11-24 16:00] VITALS: BP 100/40
[2022-11-24] MEDS: IV D5/ 0.9% NACL 1,000 ML IV PRN (16:08)
--- NOTE | 2022-11-24 16:10 | NUR ---
RN NOTE PATIENT GIVEN THICKENED ORANGE JUICE DUE TO BLOOD GLUCOSE OF 64. PATIENT REQUESTED CHOCOLATE PUDDING. PIECE MEAT TRIMMER FED PATIENT.
[2022-11-24 20:00] VITALS: BP 96/40
--- NOTE | 2022-11-24 20:05 | NUR ---
RN CLOSING NOTES PATIENT IN BED, ASLEEP. AAO X1-2, AROUSABLE TO NAME. O2 VIA NC AT 2L, NO SOB/DISTRESS NOTED. BREATHING EVEN AND UNLABORED. IV ACCESS ON THADDEUS MIDLINE, INTACT AND PATENT RUNNING D5NS AT 90 ML/HR. WARNER DRAIN X2 ON RIGHT SHOULDER DRAINING SEROSANGUINEOUS FLUID WITH OUTPUT OF 30ML. VIRAMONTES CATHETER DRAINING IN PLACE, INTACT WITH SLIGHT HEMATURIA. PATIENT NO LONGER NPO. SOME FOOD GIVEN UNTIL PATIENT REFUSED. ALL DUE MEDS GIVEN. SAFETY MEASURES MAINTAINED: BED LOCKED AND IN LOWEST POSITION, CALL LIGHT WITHIN REACH, SIDE RAILS UP X3. WILL ENDORSE TO ONCOMING SHIFT FOR HERRERA.
--- NOTE | 2022-11-24 20:12 | NUR ---
PROJECT MANAGER PROCESS DEVELOPMENT OPENING NOTE PATIENT SLEEPING IN BED, EASILY AWAKENED, ALERT/ORIENTED X 1-2. PATIENT STABLE ON 2 LPM OF O2 VIA NASAL CANNULA, NO S/S OF DISTRESS OR SOB NOTED, BREATHING EVEN AND UNLABORED. PATIENT ON EXTERNAL STEAMING MACHINE OPERATOR READING SINUS RHYTHM WITH BBB, HR: 88. IV ACCESS ON THADDEUS ML INTACT AND INFUSING D5NS @ 90 ML/HR. RIGHT SHOULDER NOTED WITH 2 WARNER DRAINS, NO OUTPUT AT THIS TIME. VIRAMONTES CATH IN PLACE AND DRAINING ORANGE URINE BY GRAVITY. SAFETY MEASURES IN PLACE: CALL LIGHT WITHIN REACH, SIDE RAILS UP X 3, BED LOCKED IN LOWEST POSITION, HOB ELEVATED, BED ALARM ON. WILL CONTINUE TO MONITOR PATIENT
[2022-11-24] MEDS: MIRTAZAPINE 15 MG TABLET PO SCH (22:51)
[2022-11-25] VITALS (7 sets, daily range): BP systolic 88–129; BP diastolic 40–98
[2022-11-25] MEDS: ALBUTEROL FS 2.5 MG/0.5 ML VIAL.NEB NEB SCH ×4 (01:17→20:00)
[2022-11-25] MEDS: ACETYLCYSTEINE 10% SOLN 400 MG/4 ML VIAL NEB SCH ×4 (01:17→19:59)
[2022-11-25] MEDS: IV D5/ 0.9% NACL 1,000 ML IV PRN ×2 (03:27→15:30)
[2022-11-25] MEDS: CEFEPIME 2 GM in IV D5W 100 ML IV SCH ×3 (05:26→20:28)
[2022-11-25 06:27] LABS: BASOPHILS % (AUTO) 0.3 % (0.0-2.0); EOSINOPHILS % (AUTO) 0.5 % (0.0-6.0); HEMATOCRIT 25 % (39-51); HEMOGLOBIN 8.1 g/dL (13.5-17.5); LYMPHOCYTES # (AUTO) 1.3 K/uL (0.8-4.8); LYMPHOCYTES % (AUTO) 12.5 % (20.0-44.0); MEAN CORPUSCULAR HGB CONC 32 g/dl (31.0-36.0); MEAN CORPUSCULAR VOLUME 87 fL (80-96); MONOCYTES # (AUTO) 0.5 K/uL (0.1-1.30); MONOCYTES % (AUTO) 5.4 % (2.0-12.0); NEUTROPHILS # (AUTO) 8.3 K/uL (1.8-8.9); NEUTROPHILS % (AUTO) 81.3 % (43.0-81.0); PLATELET COUNT (AUTO) 94 K/uL (150-450); RED BLOOD CELL COUNT(AUTO) 2.86 MIL/uL (4.5-6.0); WHITE BLOOD COUNT (AUTO) 10.2 K/uL (4.3-11.0)
--- NOTE | 2022-11-25 06:48 | NUR ---
PROPOSAL DEVELOPMENT MANAGER CLOSING NOTE PATIENT SLEEPING IN BED, PATIENT LETHARGIC AND SLEEPING MOST OF SHIFT, ALERT TO NAME. PATIENT STABLE ON 2 LPM OF O2 VIA NASAL CANNULA, NO S/S OF DISTRESS OR SOB NOTED, BREATHING EVEN AND UNLABORED. PATIENT ON EXTERNAL PRODUCTION OR PLANT ENGINEER READING SINUS RHYTHM WITH BBB, HR: 75. IV ACCESS THADDEUS MIDLINE INTACT AND INFUSING D5NS @ 90 ML/HR. RIGHT SHOULDER WITH 2 WARNER DRAIN, FIRST DRAIN HAD < 5 ML BROWN OUTPUT, SECOND DRAIN 20 ML SEROSANGUINEOUS OUTPUT. NO SIGNIFICANT CHANGES THIS SHIFT, PATIENT SLEPT WELL, MEDICATIONS GIVEN ORDERED, WOUND CARE ON SACRUM AND SCROTUM DONE, LEFT LEG DRESSING C/D/I. VIRAMONTES CATH IN PLACE WITH 300 ML OF SILVERIO/ORANGE URINE. SAFETY MEASURES IN PLACE: CALL LIGHT WITHIN REACH, SIDE RAILS UP X 3, BED LOCKED IN LOWEST POSITION, HOB ELEVATED, BED ALARM ON. WILL ENDORSE TO DAYSHIFT RN FOR CONTINUITY OF CARE
[2022-11-25 07:23] LABS: CALCIUM, SERUM 7.3 mg/dL (8.5-10.1); CARBON DIOXIDE 24 mmol/L (21-32); CHLORIDE 114 mmol/L (98-107); CREATININE 0.4 mg/dL (0.6-1.3); GLUCOSE 71 mg/dL (74-106); PHOSPHORUS 2.4 mg/dL (2.5-4.9); POTASSIUM 3.8 mmol/L (3.5-5.1); SODIUM SERUM 143 mmol/L (136-145); UREA NITROGEN, BLOOD 17 mg/dL (7-18)
[2022-11-25 07:24] LABS: MAGNESIUM 1.6 mg/dL (1.8-2.4)
--- NOTE | 2022-11-25 07:27 | NUR ---
REWRITER OPENING NOTE PATIENT SLEEPING IN BED. STABLE ON 2 LPM OF O2 VIA NASAL CANNULA WITH NO S/S OF DISTRESS OR SOB NOTED. BREATHING EVEN AND UNLABORED. IV ACCESS THADDEUS MIDLINE INTACT AND INFUSING D5NS @ 90 ML/HR. RIGHT SHOULDER WITH 2 WARNER DRAIN. VIRAMONTES CATH IN PLACE WITH SILVERIO/ORANGE URINE. SAFETY MEASURES IN PLACE: CALL LIGHT WITHIN REACH, SIDE RAILS UP X 3, BED LOCKED IN LOWEST POSITION, HOB ELEVATED, BED ALARM ON. WILL CONTINUE TO MONITOR.
[2022-11-25] MEDS: PANTOPRAZOLE 40 MG TABLET.DR PO SCH (09:05)
[2022-11-25] MEDS: THIAMINE HCL 100 MG TABLET PO SCH (09:05)
[2022-11-25] MEDS: AMIODARONE HCL 200 MG TABLET PO SCH ×2 (09:10→17:22)
[2022-11-25] MEDS: PROSOURCE / PROSTAT (PYXIS) 30 ML UDC GT SCH ×2 (09:11→17:23)
[2022-11-25] MEDS: GLUCERNA SHAKE 237 ML CAN PO SCH ×2 (09:11→17:23)
[2022-11-25] MEDS: BLOOD SUGAR DIAGNOSTIC 1 EACH STRIP IN SCH ×4 (09:33→21:34)
[2022-11-25] MEDS: INSULIN REGULAR, HUMAN 100 UNIT/ML 3 ML VIAL SQ PRN ×3 (09:34→19:22)
[2022-11-25] MEDS ORDERED: MAGNESIUM OXIDE 400 MG TABLET PO ONE (12:00)
[2022-11-25] MEDS: VANCOMYCIN HCL 0.75 GM in IV D5W 250 ML IV SCH ×2 (12:28→22:51)
[2022-11-25 12:56] LABS: BAND % (MANUAL) 5 % (0.0-5.0); BASOPHILS % (MANUAL) 0 % (0.0-2.0); EOSINOPHILS % (MANUAL) 0 % (0-4); LYMPHOCYTES % (MANUAL) 10 % (16-48); MONOCYTES % (MANUAL) 5 % (0-11.0); NEUTROPHILS % (MANUAL) 80 (42-76)
--- NOTE | 2022-11-25 13:05 | NUR ---
RN NOTES FOR CHEST XRAY MINIMAL LEFT APICAL PNEUMOTHORAX SEEN IN CHEST XRAY POST THORACENTESIS. FOLLOW UP CHEST XRAY ORDERED IN 1 HOUR PER MD.
[2022-11-25] MEDS ORDERED: NEUTRA PHOS 1 POWD.PACKET PO ONE (16:00)
--- NOTE | 2022-11-25 18:22 | NUR ---
RN NOTES DWAYNE MUÑOZ X RAY DEVELOPER NOTIFIED OF CHEST XRAY. ORDERED PT TO BE PLACED ON 6L O2 VIA FACE MASK.
--- NOTE | 2022-11-25 19:30 | NUR ---
FAUCETS ASSEMBLER OPENING NOTE RECEIVED PATIENT FROM AM NURSE; PATIENT IS A/O X 1-2, RESTING IN BED; STABLE ON 6LPM O2 VIA NASAL CANNULA; HOOKED TO TEXTILE COLORIST FORMULATOR CURRENTLY READING SINUS TACHYCARDIA; NOTED TO HAVE 2 WARNER DRAINS AT RIGHT SHOULDER, ONE IS DRAINING WITH DARK BROWN COLORED FLUID WITH BLOOD; WITH MIDLINE ACCESS AT THADDEUS RUNNING WITH D5NS AT 90ML/HR; PRESENCE OF FLUID DRAINING FROM BILATERAL UPPER EXTREMITIES AND WITH MULTIPLE WOUNDS; WITH VIRAMONTES CATHETER IN PLACE DRAINING TO YELLOW COLORED URINE; NO COMPLAINS OF PAIN AND DISCOMFORT AT THIS TIME; SAFETY MEASURES IMPLEMENTED, BED IN LOW AND LOCKED POSITION, SIDE RAILS UP X 3, CALL LIGHT WITHIN REACH; WILL CONTINUE TO MONITOR THROUGHOUT SHIFT
--- NOTE | 2022-11-25 20:01 | NUR ---
DEALERSHIP GENERAL MANAGER CLOSING NOTE PATIENT SLEEPING IN BED. STABLE ON 6 L OF O2 VIA FACE MASK. NO S/S OF DISTRESS OR SOB NOTED. BREATHING EVEN AND UNLABORED. IV ACCESS THADDEUS MIDLINE INTACT AND INFUSING D5NS @ 90 ML/HR. RIGHT SHOULDER WITH 2 WARNER DRAINS WITH 30 ML SEROSANGUINEOUS FLUID DRAINING IN ONE AND A SMALL AMOUNT OF BROWN FLUID IN THE OTHER. VIRAMONTES CATH IN PLACE WITH SILVERIO/ORANGE URINE. ALL DUE MEDS GIVEN. PATIENT KEPT CLEAN AND COMFORTABLE. SAFETY MEASURES IN PLACE: CALL LIGHT WITHIN REACH, SIDE RAILS UP X 3, BED LOCKED IN LOWEST POSITION, HOB ELEVATED, BED ALARM ON. WILL ENDORSE TO ONCOMING SHIFT FOR HERRERA.
[2022-11-25] MEDS: MIRTAZAPINE 15 MG TABLET PO SCH (21:24)
[2022-11-26] VITALS: BP 115/65
[2022-11-26] MEDS: IV D5/ 0.9% NACL 1,000 ML IV PRN ×2 (01:56→18:45)
[2022-11-26] MEDS: ALBUTEROL FS 2.5 MG/0.5 ML VIAL.NEB NEB SCH ×4 (02:01→19:44)
[2022-11-26] MEDS: ACETYLCYSTEINE 10% SOLN 400 MG/4 ML VIAL NEB SCH ×4 (02:01→19:44)
[2022-11-26 04:00] VITALS: BP 111/83
[2022-11-26] MEDS: CEFEPIME 2 GM in IV D5W 100 ML IV SCH ×2 (04:40→13:10)
[2022-11-26] MEDS: BLOOD SUGAR DIAGNOSTIC 1 EACH STRIP IN SCH ×4 (06:30→22:34)
--- NOTE | 2022-11-26 06:55 | NUR ---
AUTOMOTIVE SOFTWARE ENGINEER CLOSING NOTE PATIENT IS A/O X 1-2, RESTING IN BED; STABLE ON 5LPM O2 VIA NASAL CANNULA; HOOKED TO PLASTER CASTER CURRENTLY READING SINUS TACHYCARDIA 110S; WITH 2 WARNER DRAINS AT RIGHT SHOULDER, ONE IS DRAINING WITH DARK BROWN COLORED FLUID; WITH MIDLINE ACCESS AT THADDEUS RUNNING WITH D5NS AT 90ML/HR; PRESENCE OF FLUID DRAINING FROM BILATERAL UPPER EXTREMITIES AND WITH MULTIPLE WOUNDS; WITH VIRAMONTES CATHETER IN PLACE DRAINING TO YELLOW COLORED URINE; ADMINISTERED MEDICATIONS PRESCRIBED; PATIENT'S NEEDS ATTENDED; MONITORED PATIENT ACCORDINGLY; SAFETY MEASURES IMPLEMENTED, BED IN LOW AND LOCKED POSITION, SIDE RAILS UP X 3, CALL LIGHT WITHIN REACH; WILL ENDORSE TO AM NURSE FOR HERRERA.
--- NOTE | 2022-11-26 07:00 | NUR ---
INSPECTOR TOYS OPENING NOTES: RECEIVED PT IN BED ASLEEP, EASILY AROUSED WITH STIMULI,PT A/O X1 TO 2. NO SOB OR CARDIAC DISTRESS NOTED, ON 5 LPM VIA NC AND KARLY WELL. ON REAL ESTATE ASSOCIATE ATTORNEY WITH CURRENT READING SR @90BPM. NOTED WITH MIDLINE IV ACCESS THADDEUS AT D5 NS 1L @90ML/HR PATENT, INTACT INFUSING WELL. WARNER DRAINS ON RIGHT SHOULDER NOTED WITH SEROSANGUINEOUS OUTPUT ON NEGATIVE PRESSURE NOTED.WITH FC DRAINING YELLOW COLORED URINE VIA GRAVITY. SAFETY MEASURES MAINTAINED: BED LOCKED AND IN LOWEST POSITION, SIDE RAILS UP X 2. CALL LIGHT IN EASY REACH FOR HELP. WILL MONITOR PT ACCORDINGLY.
[2022-11-26] MEDS: GLUCERNA SHAKE 237 ML CAN PO SCH ×3 (07:46→16:44)
[2022-11-26] MEDS: PROSOURCE / PROSTAT (PYXIS) 30 ML UDC GT SCH ×3 (07:46→16:44)
[2022-11-26 08:00] VITALS: BP 91/57
[2022-11-26 08:07] LABS: BASOPHILS % (AUTO) 0.2 % (0.0-2.0); EOSINOPHILS % (AUTO) 0.3 % (0.0-6.0); HEMATOCRIT 27 % (39-51); HEMOGLOBIN 8.2 g/dL (13.5-17.5); LYMPHOCYTES % (AUTO) 10.2 % (20.0-44.0); MEAN CORPUSCULAR HGB CONC 31 g/dl (31.0-36.0); MEAN CORPUSCULAR VOLUME 92 fL (80-96); MONOCYTES # (AUTO) 0.5 K/uL (0.1-1.30); MONOCYTES % (AUTO) 4.8 % (2.0-12.0); NEUTROPHILS # (AUTO) 8.5 K/uL (1.8-8.9); NEUTROPHILS % (AUTO) 84.5 % (43.0-81.0); PLATELET COUNT (AUTO) 112 K/uL (150-450); RED BLOOD CELL COUNT(AUTO) 2.93 MIL/uL (4.5-6.0); WHITE BLOOD COUNT (AUTO) 10.1 K/uL (4.3-11.0)
[2022-11-26 08:20] LABS: CALCIUM, SERUM 7.2 mg/dL (8.5-10.1); CARBON DIOXIDE 22 mmol/L (21-32); CHLORIDE 114 mmol/L (98-107); CREATININE 0.5 mg/dL (0.6-1.3); GLUCOSE 71 mg/dL (74-106); MAGNESIUM 1.4 mg/dL (1.8-2.4); PHOSPHORUS 2.4 mg/dL (2.5-4.9); POTASSIUM 3.3 mmol/L (3.5-5.1); SODIUM SERUM 141 mmol/L (136-145); UREA NITROGEN, BLOOD 22 mg/dL (7-18)
[2022-11-26] MEDS: AMIODARONE HCL 200 MG TABLET PO SCH ×3 (09:00→16:44)
[2022-11-26] MEDS: THIAMINE HCL 100 MG TABLET PO SCH (09:07)
[2022-11-26] MEDS: PANTOPRAZOLE 40 MG TABLET.DR PO SCH (09:08)
[2022-11-26] MEDS ORDERED: POTASSIUM CHLORIDE 20 MEQ POWDER PACKET PO ONE (10:00)
[2022-11-26] MEDS ORDERED: NEUTRA PHOS 1 POWD.PACKET PO ONE (11:00)
[2022-11-26] MEDS: VANCOMYCIN HCL 0.75 GM in IV D5W 250 ML IV SCH ×2 (11:58→22:24)
[2022-11-26 12:00] VITALS: BP 96/65
[2022-11-26] MEDS: Magnesium 1GM/D5W 100ML PREMIX 100 ML IV SCH ×4 (12:15→16:00)
[2022-11-26 12:21] LABS: ABG OXYGEN SATURATION 92.7 % (92.0-98.5); ABG PCO2 27.5 mmHg (35.0-45.0); ABG PH 7.493 (7.350-7.450); ABG PO2 67.1 mmHg (75.0-100.0); AaDO2 157.7 mmHg; COHb 0.4 % (0.5-1.5); MetHb 0.3 % (0.0-1.5); O2Hb 92.1 % (94.0-97.0); SITE, ABG Left Radial; VENT MODE, BG 5L NC
[2022-11-26] MEDS: INSULIN REGULAR, HUMAN 100 UNIT/ML 3 ML VIAL SQ PRN (12:25)
[2022-11-26] MEDS ORDERED: ANESTHESIA TRAY IN PYXIS 1 EA TRAY MC ONE (14:29)
--- NOTE | 2022-11-26 14:55 | NUR ---
RN NOTES: RECEIVED A CALL FROM BRENNEN ZARATE (SURGERY) PT WILL HAVE GT PLACEMENT TOMORROW 11/27 AT 3PM. NPO AFTER 7AM, SECURE CONSENTS AND PRE OP CHECK LIST. ORDERS NOTED AND CARRIED OUT.
--- NOTE | 2022-11-26 15:14 | NUR ---
RN NOTES: FOLLOWED UP TO THE PHARMACIST VIC DUE @1400, PER PHARMACIST THEY WILL DELIVER NOW.
[2022-11-26] MEDS: MEROPENEM 500 MG in IV NS 0.9% 50 ML IV SCH (15:59)
[2022-11-26 16:00] VITALS: BP 101/56
--- NOTE | 2022-11-26 19:28 | NUR ---
DELI CLERK CLOSING NOTES: PT IN BED AWAKE,PT A/O X1 TO 2. NO SOB OR CARDIAC DISTRESS NOTED, ON 10LPM VIA FACE MASK AND KARLY WELL. ON CHIEF GREEN OFFICER WITH CURRENT READING SR @80BPM. NOTED WITH MIDLINE IV ACCESS THADDEUS AT D5 NS 1L @90ML/HR PATENT, INTACT INFUSING WELL. WARNER DRAINS ON RIGHT SHOULDER NOTED WITH SEROSANGUINEOUS OUTPUT ON NEGATIVE PRESSURE NOTED.WITH FC DRAINING YELLOW COLORED URINE VIA GRAVITY INFORMED CORROSION ENGINEER TONI THAT PT HAS ONLY 70ML OUTPUT. SAFETY MEASURES MAINTAINED: BED LOCKED AND IN LOWEST POSITION, SIDE RAILS UP X 2. CALL LIGHT IN EASY REACH FOR HELP. ENDORSED TO NOC SHIFT RN FOR HERRERA.
[2022-11-26 20:00] VITALS: BP 91/53
[2022-11-26] MEDS: MIRTAZAPINE 15 MG TABLET PO SCH (22:17)
[2022-11-27] VITALS (53 sets, daily range): BP systolic 38–149; BP diastolic 21–99
[2022-11-27] MEDS: MEROPENEM 500 MG in IV NS 0.9% 50 ML IV SCH ×2 (01:20→15:09)
[2022-11-27] MEDS: ACETYLCYSTEINE 10% SOLN 400 MG/4 ML VIAL NEB SCH ×5 (01:51→20:00)
[2022-11-27] MEDS: ALBUTEROL FS 2.5 MG/0.5 ML VIAL.NEB NEB SCH ×5 (01:51→20:00)
[2022-11-27] MEDS ORDERED: IV NS 0.9% 500 ML BAG IV ONE (02:30)
[2022-11-27] MEDS: BLOOD SUGAR DIAGNOSTIC 1 EACH STRIP IN SCH ×4 (05:52→22:00)
--- NOTE | 2022-11-27 06:37 | NUR ---
CLOSING NOTES: ALERT AND RIENTATED X2 NPO SCHEDULE FOR GT PLACEMENT AT 3PM BBLOOD SUGAAR 68 THIS AM OJ 118ML GIVEN KANIKA MADE AWARE NNO 0NE LARGE BROWN BM LAST NIGHT OUTPIT 100 ML KANIKA MADE AWARE BLADDER SCANNED 245 ML SEEN UA CLOUNG MUCOUS WOUND RIGHT SHOULDER JPRATT 50 ML
[2022-11-27 07:05] LABS: BASOPHILS % (AUTO) 0.5 % (0.0-2.0); EOSINOPHILS % (AUTO) 0.4 % (0.0-6.0); HEMATOCRIT 25 % (39-51); HEMOGLOBIN 7.7 g/dL (13.5-17.5); LYMPHOCYTES # (AUTO) 0.5 K/uL (0.8-4.8); LYMPHOCYTES % (AUTO) 7.8 % (20.0-44.0); MEAN CORPUSCULAR HGB CONC 31 g/dl (31.0-36.0); MEAN CORPUSCULAR VOLUME 93 fL (80-96); MONOCYTES # (AUTO) 0.3 K/uL (0.1-1.30); MONOCYTES % (AUTO) 4.1 % (2.0-12.0); NEUTROPHILS # (AUTO) 6.1 K/uL (1.8-8.9); NEUTROPHILS % (AUTO) 87.2 % (43.0-81.0); PLATELET COUNT (AUTO) 92 K/uL (150-450)
--- NOTE | 2022-11-27 07:42 | NUR ---
SBA BUSINESS DEVELOPMENT OFFICER OPENING NOTE RECEIVED PT AWAKE, EASILY AROUSABLE, ALERT AND ORIENTED X2. PT IS ON TELE MONITOR SINUS RHYTHM 90. PT ON 10L SIMPLE FACE MASK. PT HAS LEFT UPPER ARM MIDLINE. IV PATENT, INTACT AND FLUSHING WELL. WARNER DRAIN ON RIGHT SHOULDER DRAINING SEROISANGUINEOUS OUTPUT. PT HAS VIRAMONTES CATHETER WITH YELLOW COLORED OUTPUT. ALL SAFETY MEASURES IN PLACE. BED LOCKED IN LOWEST POSITION. SIDE RAILS UP X2. CALL LIGHT WITHIN REACH. BED LOCKED AT LOWEST POSITION.
[2022-11-27] MEDS: GLUCERNA SHAKE 237 ML CAN PO SCH ×2 (08:00→16:03)
[2022-11-27] MEDS: PROSOURCE / PROSTAT (PYXIS) 30 ML UDC GT SCH ×2 (08:00→16:03)
[2022-11-27] MEDS: PANTOPRAZOLE 40 MG TABLET.DR PO SCH (08:10)
[2022-11-27] MEDS: THIAMINE HCL 100 MG TABLET PO SCH (08:10)
[2022-11-27] MEDS: AMIODARONE HCL 200 MG TABLET PO SCH ×2 (08:11→16:03)
[2022-11-27 08:59] LABS: CALCIUM, SERUM 7.4 mg/dL (8.5-10.1); CARBON DIOXIDE 16 mmol/L (21-32); CHLORIDE 116 mmol/L (98-107); CREATININE 0.7 mg/dL (0.6-1.3); GLUCOSE 83 mg/dL (74-106); MAGNESIUM 1.9 mg/dL (1.8-2.4); PHOSPHORUS 3.2 mg/dL (2.5-4.9); POTASSIUM 3.5 mmol/L (3.5-5.1); SODIUM SERUM 142 mmol/L (136-145); UREA NITROGEN, BLOOD 28 mg/dL (7-18)
[2022-11-27] MEDS: IV D5/ 0.9% NACL 1,000 ML IV PRN ×3 (09:57→22:31)
[2022-11-27 10:13] LABS: ABG BASE EXCESS -5.9 mmol/L; ABG OXYGEN SATURATION 85.8 % (92.0-98.5); ABG PCO2 42.3 mmHg (35.0-45.0); ABG PH 7.296 (7.350-7.450); ABG PO2 62.8 mmHg (75.0-100.0); AaDO2 260.6 mmHg; COHb 0.3 % (0.5-1.5); MetHb 0.2 % (0.0-1.5); O2Hb 85.4 % (94.0-97.0); SITE, ABG Left Brachial; VENT MODE, BG SIMPLE MASK
[2022-11-27] MEDS ORDERED: NOREPINEPHRINE 8 MG in IV NS 0.9% 242 ML IV PRN (10:30)
--- NOTE | 2022-11-27 10:50 | NUR ---
rn note gave report to Es JUNIOR ENGINEER for contuity of care. transferred via ACLS protocol.
[2022-11-27] MEDS: NOREPINEPHRINE 8 MG in IV NS 0.9% 242 ML IV PRN ×2 (10:58→12:46)
[2022-11-27] MEDS ORDERED: IV NS 0.9% 250 ML IV ONE ×2 (11:00→11:30)
[2022-11-27] MEDS ORDERED: PHENYLEPHRINE 50 MG in IV NS 0.9% 245 ML IV PRN (11:30)
[2022-11-27] MEDS: PROPOFOL 100 ML IV PRN ×4 (12:00→22:57)
--- NOTE | 2022-11-27 12:04 | NUR ---
RT NOTE: LATE ENTRY- @1154- PATIENT ORALLY INTUBATED WITH 7.5 ETT AND SECURED AT 24CM MID LIP LINE. PATIENT PLACED ON MECHANICAL VENT. VENT SETTINGS PER MD ORDER. BILATERAL CHEST RISE AND POSITIVE COLOR CHANGE ON CAPNOMETER NOTED. VENT ALARMS VERIFIED. AMBU BAG AT [facility].
[2022-11-27 14:01] LABS: ABG BASE EXCESS -7.3 mmol/L; ABG OXYGEN SATURATION 93.9 % (92.0-98.5); ABG PCO2 35.7 mmHg (35.0-45.0); ABG PH 7.321 (7.350-7.450); ABG PO2 79.4 mmHg (75.0-100.0); AaDO2 236.9 mmHg; COHb 0.3 % (0.5-1.5); MetHb 0.1 % (0.0-1.5); O2Hb 93.5 % (94.0-97.0); PEEP,BG 5 cm H2O; SITE, ABG A-Line; VT, ABG 450 mL
[2022-11-27] MEDS: VANCOMYCIN HCL 0.75 GM in IV D5W 250 ML IV SCH ×2 (14:07→23:00)
[2022-11-27] MEDS: IV NS 0.9% 250 ML IV PRN (14:10)
[2022-11-27] MEDS: NOREPINEPHRINE 32 MG in IV NS 0.9% 218 ML IV PRN ×2 (14:41→20:14)
[2022-11-27] MEDS ORDERED: ETOMIDATE 2 MG/ML VIAL IV ONE (14:58)
[2022-11-27] MEDS ORDERED: ROCURONIUM BROMIDE 50 MG/5 ML IV ONE (14:58)
[2022-11-27 16:22] LABS: LYMPHOCYTES % (MANUAL) 4 % (16-48); MONOCYTES % (MANUAL) 3 % (0-11.0); NEUTROPHILS % (MANUAL) 93 (42-76)
--- NOTE | 2022-11-27 19:15 | NUR ---
RN OPENING NOTES PATIENT RECEIVED IN BED, SEDATED. PT IS ORALLY INTUBATED SIZE 7.5 AND 23 CM BY THE LIP WITH VENT SETTING RATE -22, TIDAL VOLUME- 450, FIO2- 50%, PEEP-5. NO SOB NOTED, NO S/S DISTRESS, AFEBRILE, NO S/S OF DISTRESS NOTED. NOTED WITH THADDEUS PICC LINE FLUSHED WITH NS, NO S/S OF INFILTRATION NOTED. RUNNING WITH PROPOFOL @ 60 MCG/KG/MIN, LEVO @ 0.7 MCG/KG/MIN. AND D5NS @ 90 ML/HR. VIRAMONTES CATHETER PATENT INTACT WITH LITTLE TO NO URINE OUTPUT. ALL SAFETY PRECAUTION PROVIDED. BED IN LOWEST POSITION, LOCKED. CALL LIGHT WITHIN REACH, SIDE RAILS UP X3. WILL CONTINUE TO MONITOR.
[2022-11-27] MEDS ORDERED: PHENYLEPHRINE 10 MG/ML VIAL ONE (20:02)
[2022-11-27] MEDS: MIRTAZAPINE 15 MG TABLET PO SCH (22:00)
[2022-11-27] MEDS: INSULIN REGULAR, HUMAN 100 UNIT/ML 3 ML VIAL SQ PRN (22:01)
--- NOTE | 2022-11-27 22:01 | NUR ---
RN NOTES BLOOD SUGAR 123 mg/dL, NO INSULIN COVERAGE PER SLIDING SCALE, NO S/S OF HYPOGLYCEMIA NOTED.
--- NOTE | 2022-11-27 22:05 | NUR ---
RN NOTES MIRTAZAPINE 15MG PO NOT ADMINISTERED, PATIENT IS INTUBATED.
--- NOTE | 2022-11-27 23:36 | NUR ---
RN NOTES VANCOMYCIN 750MG IV HELD, VANCO TROUGH IS 32.
[2022-11-28] VITALS (93 sets, daily range): BP systolic 89–128; BP diastolic 41–91
[2022-11-28] MEDS: ACETYLCYSTEINE 10% SOLN 400 MG/4 ML VIAL NEB SCH ×4 (01:45→20:04)
[2022-11-28] MEDS: ALBUTEROL FS 2.5 MG/0.5 ML VIAL.NEB NEB SCH ×4 (01:45→20:04)
[2022-11-28] MEDS: MEROPENEM 500 MG in IV NS 0.9% 50 ML IV SCH ×2 (01:47→14:36)
[2022-11-28] MEDS: NOREPINEPHRINE 32 MG in IV NS 0.9% 218 ML IV PRN ×5 (01:47→20:13)
[2022-11-28 05:07] LABS: BASOPHILS % (AUTO) 0.3 % (0.0-2.0); EOSINOPHILS % (AUTO) 0.5 % (0.0-6.0); HEMATOCRIT 29 % (39-51); HEMOGLOBIN 9.3 g/dL (13.5-17.5); LYMPHOCYTES # (AUTO) 0.8 K/uL (0.8-4.8); LYMPHOCYTES % (AUTO) 10.7 % (20.0-44.0); MEAN CORPUSCULAR HGB CONC 32 g/dl (31.0-36.0); MEAN CORPUSCULAR VOLUME 90 fL (80-96); MONOCYTES # (AUTO) 0.3 K/uL (0.1-1.30); MONOCYTES % (AUTO) 3.9 % (2.0-12.0); NEUTROPHILS # (AUTO) 6.1 K/uL (1.8-8.9); NEUTROPHILS % (AUTO) 84.6 % (43.0-81.0); PLATELET COUNT (AUTO) 84 K/uL (150-450); RED BLOOD CELL COUNT(AUTO) 3.26 MIL/uL (4.5-6.0); WHITE BLOOD COUNT (AUTO) 7.2 K/uL (4.3-11.0)
[2022-11-28 05:27] LABS: CALCIUM, SERUM 7.6 mg/dL (8.5-10.1); CARBON DIOXIDE 17 mmol/L (21-32); CHLORIDE 111 mmol/L (98-107); GLUCOSE 161 mg/dL (74-106); MAGNESIUM 1.7 mg/dL (1.8-2.4); PHOSPHORUS 3.8 mg/dL (2.5-4.9); SODIUM SERUM 138 mmol/L (136-145); UREA NITROGEN, BLOOD 30 mg/dL (7-18)
[2022-11-28] MEDS ORDERED: Magnesium 1GM/D5W 100ML PREMIX PIGGYBACK IV ONE (07:30)
[2022-11-28] MEDS: GLUCERNA SHAKE 237 ML CAN PO SCH ×2 (08:00→17:00)
--- NOTE | 2022-11-28 08:00 | NUR ---
RECIEVEPATIENT ONVENTILATOR AC 22 TV 450 FIO2 50% PEEP 5 IS ON PROPOFOL GTT 5MCG ,SR ON MONITOR,NGTUBE WAS PLACED PER ORDER CXR WAS DONE, PLACEMENT IS OK HAS A LINE AND PICC LINE ON LEFT UPPER CHUYITA ,MEDS GIVEN PER ORDER ,K 3.0WAS REPLACED WITH IV POTASSIUM PER ORDER, MG 1.7 AND WASREPLACED WITH 1 GM MAG TTTTITRATE PROPOFOL TO 5MCG AT THISTIME , IS ON LEVOPHED GTT FOR BLOOD PRESSURE SUPPORT
--- NOTE | 2022-11-28 08:11 | NUR ---
RECEIVED VERBAL ORDER FROM DOCTOR AMY. PATIENT TO START GLUCERNA AT 20 MLS/HR, PROGRESS BY 10 MLS EVERY 6 HOURS TOLERATED TO GOAL OF 60 MLS/HR. NASOGASTRIC TUBE INSERTED AT 70 CM SCOTT. PLACEMENT CONFIRMED VIA AUSCULTATION BUY MYSELF AND BRENNEN MANRIQUE. WILL AWAIT RESULTS OF CHEST X-RAY FOR FINAL CONFIRMATION OF PLACEMENT.
[2022-11-28] MEDS: BLOOD SUGAR DIAGNOSTIC 1 EACH STRIP IN SCH ×4 (08:20→22:05)
[2022-11-28] MEDS: AMIODARONE HCL 200 MG TABLET PO SCH ×2 (08:27→17:00)
[2022-11-28] MEDS: THIAMINE HCL 100 MG TABLET PO SCH (08:27)
[2022-11-28] MEDS: POTASSIUM CL. PREMIX PERIPHER. 50 ML IV SCH ×2 (08:27→09:23)
[2022-11-28] MEDS: PROSOURCE / PROSTAT (PYXIS) 30 ML UDC GT SCH ×2 (08:28→17:00)
[2022-11-28] MEDS: PANTOPRAZOLE 40 MG TABLET.DR PO SCH (08:28)
--- NOTE | 2022-11-28 08:29 | NUR ---
NON ADMIN FOR PROTONIX, PO FORM NOT SUITABLE FOR NASOGASTRIC TUBE ADMINISTRATION
[2022-11-28] MEDS ORDERED: GLUCERNA 1.2 1,000 ML BOTTLE NG PRN ×2 (08:30→10:49)
[2022-11-28 08:52] LABS: BAND % (MANUAL) 4 % (0.0-5.0); LYMPHOCYTES % (MANUAL) 14 % (16-48); MONOCYTES % (MANUAL) 3 % (0-11.0); NEUTROPHILS % (MANUAL) 79 (42-76)
[2022-11-28] MEDS: IV D5/ 0.9% NACL 1,000 ML IV PRN ×2 (09:23→11:02)
[2022-11-28] MEDS: PROPOFOL 100 ML IV PRN (10:39)
[2022-11-28] MEDS: IV NS 0.9% 250 ML IV PRN (16:06)
[2022-11-28] MEDS: INSULIN REGULAR, HUMAN 100 UNIT/ML 3 ML VIAL SQ PRN (17:05)
--- NOTE | 2022-11-28 18:24 | NUR ---
PT STILL ON VENT,AC 22 FIO2 50% TV 450 PEEP 5 5O2 SAT 100% NO FEVER ,SR ON MONITOR,VERY LITTLE OUT PUT MD AWARE MEDS GIVEN PER ORDER NGTUBE FEEDING WITH GLUCERNA 1.2 CONTINIUED , IS ON PROPOFOL GTT 5MCG ,FOR SEDATION IS ON LEVOPHED GTT 1MCG FOR BLOOD PRESSURE SUPPORT FAMILY ON BEDSIDE,WERE INSTRUCTED ABOUT PATIENTS CONDITION TUBE FEEDING UP TO 30 ML PER HOUR AT 1800
[2022-11-28] MEDS: MIRTAZAPINE 15 MG TABLET PO SCH (22:06)
[2022-11-29] VITALS (95 sets, daily range): BP systolic 37–130; BP diastolic 29–101
[2022-11-29] MEDS: NOREPINEPHRINE 32 MG in IV NS 0.9% 218 ML IV PRN ×5 (00:27→20:01)
[2022-11-29] MEDS: ACETYLCYSTEINE 10% SOLN 400 MG/4 ML VIAL NEB SCH ×2 (01:56→08:25)
[2022-11-29] MEDS: ALBUTEROL FS 2.5 MG/0.5 ML VIAL.NEB NEB SCH ×4 (01:56→20:12)
--- NOTE | 2022-11-29 02:07 | NUR ---
TRANSITIONAL CARE LIAISON SPUTUM COLLECTED BY RT AND CALLED LAB FOR PALLET SORTER.
[2022-11-29] MEDS: MEROPENEM 500 MG in IV NS 0.9% 50 ML IV SCH ×2 (02:12→13:48)
[2022-11-29 04:46] LABS: BASOPHILS % (AUTO) 0.2 % (0.0-2.0); EOSINOPHILS % (AUTO) 0.4 % (0.0-6.0); HEMATOCRIT 27 % (39-51); HEMOGLOBIN 8.6 g/dL (13.5-17.5); LYMPHOCYTES # (AUTO) 0.7 K/uL (0.8-4.8); MEAN CORPUSCULAR HGB CONC 32 g/dl (31.0-36.0); MEAN CORPUSCULAR VOLUME 92 fL (80-96); MONOCYTES # (AUTO) 0.3 K/uL (0.1-1.30); NEUTROPHILS # (AUTO) 8.9 K/uL (1.8-8.9); NEUTROPHILS % (AUTO) 89.4 % (43.0-81.0); RED BLOOD CELL COUNT(AUTO) 2.94 MIL/uL (4.5-6.0); WHITE BLOOD COUNT (AUTO) 9.9 K/uL (4.3-11.0)
[2022-11-29 04:55] LABS: PLATELET COUNT (AUTO) 45 K/uL (150-450)
[2022-11-29 04:58] LABS: CALCIUM, SERUM 7.2 mg/dL (8.5-10.1); CREATININE 1.1 mg/dL (0.6-1.3); MAGNESIUM 1.7 mg/dL (1.8-2.4); PHOSPHORUS 3.8 mg/dL (2.5-4.9); POTASSIUM 3.2 mmol/L (3.5-5.1)
[2022-11-29] MEDS: PROPOFOL 100 ML IV PRN (05:24)
[2022-11-29] MEDS: IV D5/ 0.9% NACL 1,000 ML IV PRN (05:52)
--- NOTE | 2022-11-29 06:00 | NUR ---
EPIC AMBULATORY ANALYSTS PHYSICIAN DR. Arline COWAN CALLED REGARDING CRITICAL PLATELET COUNT OF 45 THIS MORNING. ALSO NOTIFIED REGARDING NGT RESIDUAL AT 0400 BEING 650ML. NO NEW ORDERS GIVEN AT THIS HOUR. FEEDING HELD AT THIS HOUR DUE TO RESIDUAL. NO VOMITING OF ANY.
--- NOTE | 2022-11-29 07:00 | NUR ---
RN OPENING NOTES RECEIVED REPORT FROM [facility] REGISTRY NURSE. PATIENT NORMAL SINUS RYTHYM ON THE MONITOR AT THIS TIME. TOLERATING VENTILATOR SETTINGS WELL EVIDENCED BY O2 SATURATION GREATER THAN 90%. TUBE FEEDING HELD DUE TO HIGH RESIDUALS. ARTERIAL LINE IN PLACE. LEFT UPPER ARM PICC IN PLACE AND PATENT. INFUSING LEVOPHED, DIPRIVAN AND IV FLUIDS ORDERED. HEAD OF BED MAINTAINED GREATER THAN 30 DEGREES. VIRAMONTES CATHETER ATTCHED. SAFETY MEASURES IMPLEMENTED WILL CONTINUE PLAN OF CARE AND ANTICIPATE NEEDS.
--- NOTE | 2022-11-29 07:26 | NUR ---
Pt is noted very sedated , Full code , Nonverbal due to ETT to Vent therapy as report is received from the off going nurse . SR with PAC on the Tele monitor, Rhonchi Lungs sound with ETT off .01/11 to Vent with setting off AC, 22, 40, 450 and , skin cool with skin areas noted, please see skin assessment sheet in chart with WARNER Drain X2 to Right Shoulder in place. Pt is also noted Left Axilla Artline, Left Upper Arm PICC Line with gtt therapy like, Levo at 1mcg and Propofol at 15mcg noted and Blood Pressure is in the low 90s. Pt is also noted with NG-Tube but NPO as feeding remain Clamped due to Residual >200 , Mandel Cath and Flexi Seal. Pt care continue as Blood Pressure been monitor closely and treat as ordered. Addendum: 11/30/22 at 0737 by REGISTRY [facility] INPATIENT RN1 RN wrong time.
--- NOTE | 2022-11-29 07:30 | NUR ---
WOUND CARE CONSULT: PT SEEN FOR RASH TO ABDOMINAL/GROIN FOLDS. RECOMMENDATIONS MADE AND DISCUSSED WITH NURSING STAFF. MD IN AGREEMENT WITH PLAN OF CARE.
[2022-11-29 07:42] LABS: BAND % (MANUAL) 8 % (0.0-5.0); LYMPHOCYTES % (MANUAL) 2 % (16-48); METAMYELOCYTES % 1 % (0-0); MONOCYTES % (MANUAL) 2 % (0-11.0); MYELOCYTES % 1 % (0-0); NEUTROPHILS % (MANUAL) 86 (42-76)
[2022-11-29] MEDS: GLUCERNA SHAKE 237 ML CAN PO SCH ×2 (07:51→16:25)
[2022-11-29] MEDS: BLOOD SUGAR DIAGNOSTIC 1 EACH STRIP IN SCH ×4 (07:51→22:27)
[2022-11-29] MEDS: PROSOURCE / PROSTAT (PYXIS) 30 ML UDC GT SCH ×2 (08:00→16:36)
[2022-11-29] MEDS: PANTOPRAZOLE 40 MG TABLET.DR PO SCH (08:09)
[2022-11-29] MEDS: AMIODARONE HCL 200 MG TABLET PO SCH ×2 (08:10→16:34)
[2022-11-29] MEDS: THIAMINE HCL 100 MG TABLET PO SCH (08:10)
[2022-11-29 08:49] LABS: ABG OXYGEN SATURATION 95.9 % (92.0-98.5); ABG PCO2 30.5 mmHg (35.0-45.0); ABG PO2 89.7 mmHg (75.0-100.0); AaDO2 160.4 mmHg; COHb 0.3 % (0.5-1.5); MetHb 0.2 % (0.0-1.5); O2Hb 95.4 % (94.0-97.0); SITE, ABG A-Line
[2022-11-29] MEDS: CLOTRIMAZOLE/BETAMETASONE DIPROPIONATE 15 GM TUBE TP SCH ×2 (09:00→16:36)
[2022-11-29] MEDS: POTASSIUM CL. PREMIX PERIPHER. 50 ML IV SCH ×4 (10:01→13:47)
[2022-11-29] MEDS: Magnesium 1GM/D5W 100ML PREMIX 100 ML IV SCH ×2 (11:21→12:33)
--- NOTE | 2022-11-29 18:38 | NUR ---
RN CLOSING NOTES PATIENT NORMAL SINUS RYTHYM ON THE MONITOR AT THIS TIME. TOLERATING VENTILATOR SETTINGS WELL EVIDENCED BY O2 SATURATION GREATER THAN 90%. TUBE FEEDING HELD DUE TO HIGH RESIDUALS. ARTERIAL LINE IN PLACE. LEFT UPPER ARM PICC IN PLACE AND PATENT. INFUSING LEVOPHED, AND DIPRIVAN ORDERED. HEAD OF BED MAINTAINED GREATER THAN 30 DEGREES. VIRAMONTES CATHETER ATTCHED. NEW FLEXISEAL INSERTED FOR LIQUID STOOLS. WOUND DRESSINGS CHANGED AND INTACT. SAFETY MEASURES IMPLEMENTED WILL ENDORSE TO NIGHTSHIFT RN FOR CONTINUATION OF CARE.
--- NOTE | 2022-11-29 19:20 | NUR ---
Pt is noted very sedated , Full code , Nonverbal due to ETT to Vent therapy as report is received from the off going nurse . SR with PAC on the Tele monitor, Rhonchi Lungs sound with ETT off 7.5/ to Vent with setting off AC, 22, 40, 450 and , skin cool with skin areas noted, please see skin assessment sheet in chart with WARNER Drain X2 to Right Shoulder in place. Pt is also noted Left Axilla Artline, Left Upper Arm PICC Line with gtt therapy like, Levo at 1mcg and Propofol at 15mcg noted and Blood Pressure is in the low 90s. Pt is also noted with NG-Tube but NPO as feeding remain Clamped due to Residual >200 , Mandel Cath and Flexi Seal. Pt care continue as Blood Pressure been monitor closely and treat as ordered.
[2022-11-29] MEDS: PHENYLEPHRINE 100 MG in IV NS 0.9% 240 ML IV PRN (20:14)
--- NOTE | 2022-11-29 20:15 | NUR ---
Pt remain full code as he is started on ISABELLE at 0.5mcg due to Blood Pressure Desi <70. Pt care continue as he is been monitor closely.
[2022-11-29] MEDS: MIRTAZAPINE 15 MG TABLET PO SCH (22:00)
[2022-11-30] VITALS (69 sets, daily range): BP systolic 0–122; BP diastolic 0–77
[2022-11-30] MEDS: PROPOFOL 100 ML IV PRN (01:02)
[2022-11-30] MEDS: MEROPENEM 500 MG in IV NS 0.9% 50 ML IV SCH ×2 (01:02→13:18)
[2022-11-30] MEDS: NOREPINEPHRINE 32 MG in IV NS 0.9% 218 ML IV PRN ×4 (01:03→15:05)
--- NOTE | 2022-11-30 01:13 | NUR ---
Pt remain full code as Propofol is now on hold while monitoring Blood Pressure closely. Pt care continue with Levo and Alcides gtt therapy in progress.
[2022-11-30] MEDS: ALBUTEROL FS 2.5 MG/0.5 ML VIAL.NEB NEB SCH ×3 (01:34→13:25)
[2022-11-30] MEDS ORDERED: DOPamine 400 MG/D5W 250 ML RTU BAG IV ONE ×2 (04:00)
--- NOTE | 2022-11-30 04:11 | NUR ---
Pt is started on Dopamine at 5mcg due to Blood Pressure 80/32 and still cotinue on Levo AT 1mcg and Alcides 3mcg. Pt care continue as he is been monitor closely.
[2022-11-30] MEDS ORDERED: DOPamine 400 MG/D5W 250 ML RTU BAG IV PRN (05:00)
[2022-11-30] MEDS ORDERED: VASOPRESSIN INJ 40 UNIT in IV NS 0.9% 38 ML IV PRN (05:00)
--- NOTE | 2022-11-30 05:00 | NUR ---
Pt is now Max on Dopamine at 20mcg with Blood Pressure still at 73/[address] DESIGN ENGINEER Sandra montero notify.
[2022-11-30] MEDS ORDERED: PHENYLEPHRINE 10 MG/ML VIAL ONE (05:05)
[2022-11-30 05:10] LABS: BASOPHILS % (AUTO) 0.2 % (0.0-2.0); EOSINOPHILS % (AUTO) 0.1 % (0.0-6.0); HEMATOCRIT 27 % (39-51); HEMOGLOBIN 8.5 g/dL (13.5-17.5); LYMPHOCYTES # (AUTO) 0.2 K/uL (0.8-4.8); LYMPHOCYTES % (AUTO) 3.1 % (20.0-44.0); MEAN CORPUSCULAR HGB CONC 31 g/dl (31.0-36.0); MEAN CORPUSCULAR VOLUME 93 fL (80-96); MONOCYTES # (AUTO) 0.2 K/uL (0.1-1.30); MONOCYTES % (AUTO) 2.1 % (2.0-12.0); NEUTROPHILS # (AUTO) 7.3 K/uL (1.8-8.9); NEUTROPHILS % (AUTO) 94.5 % (43.0-81.0); RED BLOOD CELL COUNT(AUTO) 2.95 MIL/uL (4.5-6.0); WHITE BLOOD COUNT (AUTO) 7.7 K/uL (4.3-11.0)
[2022-11-30 05:12] LABS: CALCIUM, SERUM 8.2 mg/dL (8.5-10.1); CARBON DIOXIDE 15 mmol/L (21-32); CHLORIDE 116 mmol/L (98-107); CREATININE 1.5 mg/dL (0.6-1.3); GLUCOSE 76 mg/dL (74-106); MAGNESIUM 2.1 mg/dL (1.8-2.4); PHOSPHORUS 4.5 mg/dL (2.5-4.9); POTASSIUM 4.1 mmol/L (3.5-5.1); SODIUM SERUM 142 mmol/L (136-145); UREA NITROGEN, BLOOD 37 mg/dL (7-18)
[2022-11-30 05:16] LABS: PLATELET COUNT (AUTO) 27 K/uL (150-450)
[2022-11-30] MEDS: PHENYLEPHRINE 100 MG in IV NS 0.9% 240 ML IV PRN ×3 (05:17→16:52)
[2022-11-30] MEDS ORDERED: VASOPRESSIN INJ 20 UNIT/ML VIAL ONE (05:30)
--- NOTE | 2022-11-30 05:30 | NUR ---
Pt is noted with Platelets off 27 as Lab called in critical result ND DESIGN TEACHER Sandra Krueger notify as she ordered 1unt of Platelet. Pt care continue.
--- NOTE | 2022-11-30 07:15 | NUR ---
Pt remain full code as report is given to the AM receiving nurse. Pt care continue.
[2022-11-30] MEDS: DOPamine 400 MG in IV D5W 250 ML IV PRN ×3 (08:11→15:05)
[2022-11-30] MEDS: DEXTROSE 50%-WATER 50 ML DISP.SYRIN IV PRN ×2 (08:19→12:20)
[2022-11-30] MEDS: BLOOD SUGAR DIAGNOSTIC 1 EACH STRIP IN SCH ×2 (08:28→12:20)
[2022-11-30 08:40] LABS: ABG BASE EXCESS -16.3 mmol/L; ABG OXYGEN SATURATION 91.6 % (92.0-98.5); ABG PCO2 45.5 mmHg (35.0-45.0); ABG PH 7.072 (7.350-7.450); ABG PO2 75.7 mmHg (75.0-100.0); AaDO2 302.1 mmHg; COHb 0.5 % (0.5-1.5); MetHb 0.3 % (0.0-1.5); O2Hb 90.9 % (94.0-97.0); PEEP,BG 5 cm H2O; SITE, ABG A-Line; VENT MODE, BG AC 60%; VT, ABG 450 mL
[2022-11-30] MEDS ORDERED: SODIUM BICARBONATE SYR 50 MEQ/50 ML DISP.SYRIN IV ONE (09:00)
[2022-11-30] MEDS ORDERED: HYDROCORTISONE SOD SUCCINATE 100 MG/2 ML VIAL IV SCH (09:00)
[2022-11-30] MEDS: PROSOURCE / PROSTAT (PYXIS) 30 ML UDC GT SCH (09:08)
[2022-11-30] MEDS: THIAMINE HCL 100 MG TABLET PO SCH (09:15)
[2022-11-30] MEDS: AMIODARONE HCL 200 MG TABLET PO SCH (09:16)
[2022-11-30] MEDS: CLOTRIMAZOLE/BETAMETASONE DIPROPIONATE 15 GM TUBE TP SCH (09:17)
[2022-11-30] MEDS ORDERED: PANTOPRAZOLE 40 MG/PACK PACK GT SCH (09:30)
[2022-11-30] MEDS ORDERED: methylPREDNISolone SOD SUCC 40 MG/ML VIAL IV SCH ×2 (09:36→17:00)
[2022-11-30] MEDS ORDERED: GLUCERNA 1.2 1,000 ML BOTTLE NG PRN (10:00)
[2022-11-30 10:27] LABS: BAND % (MANUAL) 5 % (0.0-5.0); BASOPHILS % (MANUAL) 0 % (0.0-2.0); EOSINOPHILS % (MANUAL) 0 % (0-4); LYMPHOCYTES % (MANUAL) 4 % (16-48); MONOCYTES % (MANUAL) 5 % (0-11.0); NEUTROPHILS % (MANUAL) 86 (42-76)
[2022-11-30] MEDS ORDERED: DOPamine 800 MG in IV D5W 250 ML IV PRN (11:00)
--- NOTE | 2022-11-30 11:48 | NUR ---
CAR SHUNTER-TONI SEEN PATIENT AND AWARE OF VERY LOW URINE OUTPUT 30MLs IN ABOUT 6HRS, CAR SHUNTER NO ORDER MADE AT THIS TIME.
[2022-11-30] MEDS ORDERED: METOCLOPRAMIDE HCL 10 MG/2 ML VIAL IV SCH (13:00)
[2022-11-30] MEDS: IV NS 0.9% 250 ML IV PRN (13:22)
--- NOTE | 2022-11-30 17:15 | NUR ---
NOTIFIED CAPTAIN WAITER/WAITRESS-TONI AND THAT PATIENT'S DAUGHTER- PAUL FAJARDOAlejoRIDDLE HERE AT THE UNIT VISITING THE FATHER (PATIENT) AND DAUGHTER'S DECISION IS NOW COMFORT MEASURES ONLY FOR THE PATIENT. CHARGE NURSE-STEPHAN ZAMAN
[2022-11-30] MEDS ORDERED: Sodium Bicarbonate 100 MEQ in IV D5W 1,000 ML IV PRN (17:30)
[2022-11-30] MEDS ORDERED: MORPHINE SULFATE INJ 2 MG/ML DISP.SYRIN IVP ONE (17:45)
[2022-11-30] MEDS ORDERED: LORAZEPAM INJ 2 MG/ML VIAL IV ONE (17:45)
--- NOTE | 2022-11-30 17:45 | NUR ---
PATIENT ON COMFORT MEASURES ONLY. WILL CONTINUE TO MONITOR.
[2022-11-30] MEDS ORDERED: MORPHINE SULFATE INJ 2 MG/ML DISP.SYRIN IVP PRN (18:00)
--- NOTE | 2022-11-30 18:10 | NUR ---
RESP. THERAPIST STAFF WAS NOTIFIED REGARDING THE TERMINAL EXTUBATION ORDER AND PER MALE STAFF " WILL SEND SOMEONE." CHARGE NURSE-STEPHAN AND DAUGHTER-PAUL AWARE.
--- NOTE | 2022-11-30 18:58 | NUR ---
PATIENT NO PULSE DETECTED; BP= 0/0; CHARGE NURSE-STEPHAN AWARE; NIGHT CHARGE NURSE-MYLES Olson PRONOUNCED TIME OF AT 1858PM, DAUGHTER-PAUL AT THE BEDSIDE AND AWARE.
--- NOTE | 2022-11-30 19:15 | NUR ---
PER ELI GARY "BEAD WRAPPER-VIRAJ Lewis WAS NOTIFIED AT 1907PM; ADMITTING STAFF-LELAND Daley AT 1908PM; AND SAFETY DEPOSIT CLERK-ROLDAN AT 1912PM REGARDING THE TIME OF AT 1858PM." CHARGE NURSE-STEPHAN JADE. REPORT GIVEN TO ADRIÁN FOR CONTINUITY OF CARE.
--- NOTE | 2022-11-30 19:43 | NUR ---
RN/ICU-PRONOUNCEMENT OF :CODE STATUS,COMFORT CARE. PUPILS ARE FIXED AND DILATED, UNRESPONSIVE TO ANY FORM OF STIMULI. EXTREMITIES ARE FLACCID. APNEIC, RESPIRATIONS= ZERO. PERIPHERAL PULSES ARE ABSENT. EKG SHOWS ASYSTOLE X 2 LEADS. HEART TONES ARE ABSENT. NO SIGNS OF LIFE. PRONOUNCED AT 1858. BY:MYLES JETT RN/BSN
--- NOTE | 2022-11-30 20:00 | NUR ---
Reported to [facility] spoke to Anika.Per Anika patient not eligible for donation. Case no.[id number].
--- NOTE | 2022-11-30 21:15 | NUR ---
Patient's family left.No belongings.
--- NOTE | 2022-11-30 21:30 | NUR ---
Post mortem care done.Body to morgue.
[2022-12-01] MEDS ORDERED: VANCOMYCIN HCL 0.75 GM in IV D5W 250 ML IV SCH (09:00)
== END 2022-11-30 21:47 | DRG 208 ==
LOC: ER 10:53 → TELE1 16:03 → TELE-TD 18:12 → TELE1 11-18 15:46 → ICU 11-27 10:25
PROVIDERS: ADMIT Nurse Practitioner Acute Care; ATTEND Nurse Practitioner Acute Care
PROC: 05HA33Z Insertion of Infusion Device into Left Brachial Vein, Percutaneous Approach (ICD-10-PCS; principal; 2022-11-14)
PROC: 0W9B3ZX Drainage of Left Pleural Cavity, Percutaneous Approach, Diagnostic (ICD-10-PCS; 2022-11-16)
PROC: 05HA33Z Insertion of Infusion Device into Left Brachial Vein, Percutaneous Approach (ICD-10-PCS; 2022-11-18)
PROC: 30233N1 Transfusion of Nonautologous Red Blood Cells into Peripheral Vein, Percutaneous Approach (ICD-10-PCS; 2022-11-21)
PROC: 0W9B3ZZ Drainage of Left Pleural Cavity, Percutaneous Approach (ICD-10-PCS; 2022-11-25)
PROC: 5A1945Z Respiratory Ventilation, 24-96 Consecutive Hours (ICD-10-PCS; 2022-11-27)
PROC: 0BH17EZ Insertion of Endotracheal Airway into Trachea, Via Natural or Artificial Opening (ICD-10-PCS; 2022-11-27)
PROC: 5A09357 Assistance with Respiratory Ventilation, Less than 24 Consecutive Hours, Continuous Positive Airway Pressure (ICD-10-PCS; 2022-11-27)
PROC: 02HV33Z Insertion of Infusion Device into Superior Vena Cava, Percutaneous Approach (ICD-10-PCS; 2022-11-27)
PROC: B548ZZA Ultrasonography of Superior Vena Cava, Guidance (ICD-10-PCS; 2022-11-27)
PROC: 03H533Z Insertion of Infusion Device into Right Axillary Artery, Percutaneous Approach (ICD-10-PCS; 2022-11-27)
PROC: 30233R1 Transfusion of Nonautologous Platelets into Peripheral Vein, Percutaneous Approach (ICD-10-PCS; 2022-11-30)
DX: J15.6 Pneumonia due to other Gram-negative bacteria (principal); E43 Unspecified severe protein-calorie malnutrition; G93.41 Metabolic encephalopathy; J96.01 Acute respiratory failure with hypoxia; E11.52 Type 2 diabetes mellitus with diabetic peripheral angiopathy with gangrene; F02.83 Dementia in other diseases classified elsewhere, unspecified severity, with mood disturbance; F02.818 Dementia in other diseases classified elsewhere, unspecified severity, with other behavioral disturbance; J90 Pleural effusion, not elsewhere classified; L02.413 Cutaneous abscess of right upper limb; J98.11 Atelectasis; N13.30 Unspecified hydronephrosis; I70.262 Atherosclerosis of native arteries of extremities with gangrene, left leg; I82.622 Acute embolism and thrombosis of deep veins of left upper extremity; E87.20 Acidosis, unspecified; R62.7 Adult failure to thrive; Z51.5 Encounter for palliative care; Z66 Do not resuscitate; G30.9 Alzheimer's disease, unspecified; Z89.511 Acquired absence of right leg below knee; I10 Essential (primary) hypertension; Z79.84 Long term (current) use of oral hypoglycemic drugs; Z79.01 Long term (current) use of anticoagulants; Z79.899 Other long term (current) drug therapy; K21.9 Gastro-esophageal reflux disease without esophagitis; I48.91 Unspecified atrial fibrillation; F32.A Depression, unspecified; Z74.01 Bed confinement status; R26.9 Unspecified abnormalities of gait and mobility; E78.5 Hyperlipidemia, unspecified; E83.42 Hypomagnesemia; E87.6 Hypokalemia; E83.39 Other disorders of phosphorus metabolism; E86.0 Dehydration; R79.89 Other specified abnormal findings of blood chemistry; E88.09 Other disorders of plasma-protein metabolism, not elsewhere classified; Z20.822 Contact with and (suspected) exposure to COVID-19; I70.0 Atherosclerosis of aorta; D69.6 Thrombocytopenia, unspecified; D64.9 Anemia, unspecified; N28.1 Cyst of kidney, acquired; N40.0 Benign prostatic hyperplasia without lower urinary tract symptoms; R57.1 Hypovolemic shock; E11.649 Type 2 diabetes mellitus with hypoglycemia without coma; Z89.422 Acquired absence of other left toe(s); Z98.890 Other specified postprocedural states; L98.9 Disorder of the skin and subcutaneous tissue, unspecified; S31.30XA Unspecified open wound of scrotum and testes, initial encounter; Y92.9 Unspecified place or not applicable; F09 Unspecified mental disorder due to known physiological condition; F06.31 Mood disorder due to known physiological condition with depressive features; T17.990A Other foreign object in respiratory tract, part unspecified in causing asphyxiation, initial encounter; X58.XXXA Exposure to other specified factors, initial encounter; Y92.239 Unspecified place in hospital as the place of occurrence of the external cause
CPT/HCPCS: 31720; 36410; 36415; 36569; 36600; 71045-TC; 71250-TC; 73200-TC; 74150-TC; 76604-TC; 76770-TC; 80048-TC; 80053-TC; 80076-TC; 80202-TC; 81001; 82040-TC; 82533; 82803-TC; 82962-TC; 83605-TC; 83735-TC; 84100-TC; 84132-TC; 84484-TC; 85025-TC; 85027-TC; 85610-TC; 85730-TC; 86850-TC; 87040-TC; 87081-TC; 87086-TC; 87102-TC; 88108-TC; 88305-TC; 88312-TC; 89051-TC; 92526; 92611-TC; 93307-TC; 94002-TC; 94003-TC; 94799-TC; A4223; A6253; A6403; C9113; C9803; G0378; J0282; J0692; J1265; J1815; J2185; J2370; J2765; J2920; J3370; J3411; J3475; J3480; J3490; J7030; J7040; J7042; J7050; J7060; J7070; P9016; P9034